=== PATIENT | male | born 1955 | race Caucasian/White ===

== ENCOUNTER 2019-08-18 13:19 | Inpatient (IN) | payer BC, MEDICARE ==
[~2019-08-18] VITALS: Ht 190.5 cm; Wt 102.0 kg
[~2019-08-18 13:19] MED LIST: ASPI1CPM9 PO; CHOL10002 PO; DULO60CA45 PO; EXEN10PE3 IJ; FISH1CAP15 PO; FLUO20CA39 PO; RABE20TA18 PO; TAMS0.4C32 PO; VITA-134 PO
[2019-08-18] MEDS ORDERED: morphine 4 MG/ML inj SYRINge IV ONE ×2 (13:30→15:35)
[2019-08-18] MEDS ORDERED: ondansetron/PF 4mg/2ml inj IV ONE (13:30)
[2019-08-18] MEDS ORDERED: MESSAGE TO PHARMACY PO ONE (16:10)
[2019-08-18] MEDS ORDERED: potassium Cl 20 mEq SR tablet PO PRN ×2 (16:10)
[2019-08-18] MEDS ORDERED: dextrose ORAL solution 15 GM/59 ML bottle PO PRN ×2 (16:10)
[2019-08-18] MEDS ORDERED: magnesium 2GM in 50ml NS 50 ML IV PRN (16:10)
[2019-08-18] MEDS ORDERED: dextrose 50%-water 50ml dispensing syringe IV PRN ×2 (16:10)
[2019-08-18] MEDS ORDERED: acetaminophen 325mg tablet PO PRN (16:10)
[2019-08-18] MEDS ORDERED: mag hydrox/Alum hydrox/simeth 30ml oral suspension PO PRN (16:10)
[2019-08-18] MEDS ORDERED: glucagon, human recombinant 1mg kit SUBCUT PRN (16:10)
[2019-08-18] MEDS ORDERED: ipratropium/albuterol 3ml nebule NEB PRN (16:10)
[2019-08-18] MEDS ORDERED: potassium CL 10mEq/100ml bag 100 ML IV PRN ×2 (16:10)
[2019-08-18] MEDS ORDERED: HYDROcodone/acetaminophen 5mg/325mg tablet PO PRN (16:10)
[2019-08-18] MEDS ORDERED: HYDROmorphone inj. 0.5 MG/0.5 ML DISP.SYRIN IV PRN (16:10)
[2019-08-18] MEDS ORDERED: ondansetron/PF 4mg/2ml inj IV PRN (16:10)
[2019-08-18] MEDS ORDERED: magnesium 4gm in 100ml NS 100 ML IV PRN (16:10)
--- NOTE | 2019-08-18 16:16 | NUR ---
DR. VELIZ IN TO SEE PT, NOW TO CT. MEDICATED WITH MS ORDERED.
--- NOTE | 2019-08-18 17:29 | NUR ---
report received from Rita KING in the ER
--- NOTE | 2019-08-18 17:50 | NUR ---
Patient came to floor into room 3622V
[2019-08-18] MEDS: normal saline 1000ml 1,000 ML IV SCH (17:55)
[2019-08-18] MEDS: HYDROmorphone 1 mg/ml syringe IV PRN ×2 (17:58→22:01)
[2019-08-18 18:14] VITALS: BP 171/94
--- NOTE | 2019-08-18 18:25 | NUR ---
Problems reprioritized. Patient report given, questions answered & plan of care reviewed with Zamzam RN.
--- NOTE | 2019-08-18 18:30 | NUR ---
Received report from Matt KING. Assumed care of patient.
[2019-08-18 18:37] LABS: BASOPHILS % (AUTO) 0.4 % (0-1); EOSINOPHILS # (AUTO) 0.2 X10'3 (0-0.9); EOSINOPHILS % (AUTO) 3.4 % (0-6); HEMATOCRIT 33.7 % (42.0-52.0); HEMOGLOBIN 10.8 g/dl (14.0-17.9); LYMPHOCYTES # (AUTO) 1.1 X10'3 (1.1-4.8); MEAN CORPUSCULAR HEMOGLOBIN 26.4 PG (27.0-31.0); MEAN CORPUSCULAR HGB CONC 32.2 g/dL (33.0-36.5); MEAN CORPUSCULAR VOLUME 82.1 FL (78-98); MEAN PLATELET VOLUME 8.5 FL (7.4-10.4); MONOCYTES # (AUTO) 0.8 X10'3 (0-0.9); MONOCYTES % (AUTO) 11.6 % (2-12); NEUTROPHILS # (AUTO) 4.8 X10'3 (1.8-7.7); NEUTROPHILS % (AUTO) 68.6 % (42-75); PLATELET COUNT 211 X10'3 (140-440); RED BLOOD COUNT 4.11 X10'6 (4.70-6.10); RED CELL DISTRIBUTION WIDTH 21.2 % (11.5-14.5)
[2019-08-18] MEDS ORDERED: ATOR20TA66 PO (18:47)
[2019-08-18] MEDS ORDERED: NEBI5TAB10 PO (18:47)
[2019-08-18] MEDS ORDERED: POTA10CA44 PO (18:47)
[2019-08-18] MEDS ORDERED: FINA5TAB11 PO (18:47)
[2019-08-18] MEDS ORDERED: ASPI1CPM6 PO (18:47)
[2019-08-18] MEDS ORDERED: CHLO25TA10 PO (18:49)
[2019-08-18 18:51] LABS: ALANINE AMINOTRANSFERASE 22 U/L (12-78); ALBUMIN 3.6 G/DL (3.4-5.0); ALBUMIN/GLOBULIN RATIO 1.4 (1.1-1.5); ALKALINE PHOSPHATASE 55 IU/L (46-116); ANION GAP 14 (8-16); ASPARTATE AMINO TRANSFERASE 15 U/L (10-37); BILIRUBIN,TOTAL 0.4 MG/DL (0.1-1.0); BLOOD UREA NITROGEN 27 MG/DL (7-18); BUN/CREATININE RATIO 17.1 (5.4-32.0); CALCIUM 9.1 MG/DL (8.5-10.1); CHLORIDE 111 MMOL/L (99-107); CREATININE 1.58 MG/DL (0.60-1.10); GLUCOSE 82 MG/DL (70-104); POTASSIUM 4.1 MMOL/L (3.5-5.1); SODIUM 146 MMOL/L (135-145); TOTAL CARBON DIOXIDE 21.5 MMOL/L (24-32); TOTAL PROTEIN 6.2 G/DL (6.4-8.2); eGFR 44 ML/MIN
[2019-08-18] MEDS ORDERED: HYDR4TAB55 PO (18:51)
[2019-08-18] MEDS ORDERED: MELA3TAB64 PO (18:52)
[2019-08-18] MEDS: HYDROcodone/acetaminophen 10/325mg tab PO PRN (18:55)
[2019-08-18 19:00] VITALS: BP 155/91
[2019-08-18 19:17] LABS: ANISOCYTOSIS 3+; ELLIPTOCYTES FEW; PLATELET ESTIMATE NORMAL
[2019-08-18] MEDS: K and/or MAG REPLACEMENT MC SCH (20:00)
[2019-08-18] MEDS: docusate sod 100mg capsule PO SCH (20:10)
[2019-08-18] MEDS: insulin glargine (Lantus) pen - multi-dose SQ SCH (20:14)
[2019-08-18 22:00] VITALS: BP 146/86
[2019-08-19] MEDS: HYDROcodone/acetaminophen 10/325mg tab PO PRN ×4 (01:23→20:39)
[2019-08-19] MEDS: HYDROmorphone 1 mg/ml syringe IV PRN ×3 (02:46→17:48)
[2019-08-19] MEDS: normal saline 1000ml 1,000 ML IV SCH ×3 (02:46→22:09)
[2019-08-19 06:00] VITALS: BP 156/86
[2019-08-19 06:04] LABS: BASOPHILS % (AUTO) 0.5 % (0-1); EOSINOPHILS # (AUTO) 0.2 X10'3 (0-0.9); EOSINOPHILS % (AUTO) 4.4 % (0-6); HEMATOCRIT 30.9 % (42.0-52.0); LYMPHOCYTES # (AUTO) 0.9 X10'3 (1.1-4.8); MEAN CORPUSCULAR HEMOGLOBIN 26.4 PG (27.0-31.0); MEAN CORPUSCULAR HGB CONC 32.4 g/dL (33.0-36.5); MEAN CORPUSCULAR VOLUME 81.5 FL (78-98); MEAN PLATELET VOLUME 8.2 FL (7.4-10.4); MONOCYTES # (AUTO) 0.6 X10'3 (0-0.9); MONOCYTES % (AUTO) 11.7 % (2-12); NEUTROPHILS # (AUTO) 3.4 X10'3 (1.8-7.7); NEUTROPHILS % (AUTO) 66.4 % (42-75); PLATELET COUNT 197 X10'3 (140-440); RED CELL DISTRIBUTION WIDTH 21.2 % (11.5-14.5); WHITE BLOOD COUNT 5.1 X10'3 (4.5-11.0)
--- NOTE | 2019-08-19 06:15 | NUR ---
Gave report to Elisa KING
[2019-08-19 06:32] LABS: ALANINE AMINOTRANSFERASE 20 U/L (12-78); ALBUMIN 3.3 G/DL (3.4-5.0); ALBUMIN/GLOBULIN RATIO 1.4 (1.1-1.5); ALKALINE PHOSPHATASE 53 IU/L (46-116); ANION GAP 7 (8-16); ASPARTATE AMINO TRANSFERASE 13 U/L (10-37); BILIRUBIN,TOTAL 0.4 MG/DL (0.1-1.0); BLOOD UREA NITROGEN 27 MG/DL (7-18); BUN/CREATININE RATIO 16.1 (5.4-32.0); CALCIUM 8.6 MG/DL (8.5-10.1); CHLORIDE 112 MMOL/L (99-107); CHOL/HDL RATIO 2.7 (0.00-4.99); CHOLESTEROL 136 MG/DL (0-200); CREATININE 1.68 MG/DL (0.60-1.10); GLUCOSE 120 MG/DL (70-104); HDL CHOLESTEROL 50 MG/DL (35-60); LDL CHOLESTEROL 71 MG/DL (50-100); MAGNESIUM 1.7 MG/DL (1.5-2.4); POTASSIUM 4.2 MMOL/L (3.5-5.1); SODIUM 143 MMOL/L (135-145); TOTAL CARBON DIOXIDE 23.8 MMOL/L (24-32); TOTAL PROTEIN 5.7 G/DL (6.4-8.2); TRIGLYCERIDES 126 MG/DL (20-135); eGFR 41 ML/MIN
[2019-08-19] MEDS: K and/or MAG REPLACEMENT MC SCH ×2 (07:31→19:35)
[2019-08-19] MEDS: enoxaparin 40mg/0.4ml syringe SQ SCH (07:34)
[2019-08-19] MEDS: docusate sod 100mg capsule PO SCH ×2 (07:35→19:33)
[2019-08-19 08:09] LABS: ANISOCYTOSIS 3+; PLATELET ESTIMATE NORMAL
[2019-08-19 08:10] LABS: POIKILOCYTOSIS 1+; SCHISTOCYTES FEW
[2019-08-19 10:00] VITALS: BP 165/88
[2019-08-19] MEDS ORDERED: pneumococcal 23-VAL P-sac vacc 25 mcg/0.5ml vial IMVAC ONE (10:00)
[2019-08-19] MEDS: duloxetine 30mg CAPSULE.DR PO SCH (13:09)
[2019-08-19] MEDS ORDERED: ceFAZolin 1GM/D5W- ADD-VANTAGE 50 ML IV ONE (15:00)
[2019-08-19] MEDS: metoprolol tartrate 25mg tablet PO SCH ×2 (16:25→19:33)
[2019-08-19 17:00] VITALS: BP 191/95
[2019-08-19] MEDS ORDERED: ringers solution, lacted 1,000 ML IV ONE (17:40)
--- NOTE | 2019-08-19 18:15 | NUR ---
Problems reprioritized. Patient report given, questions answered & plan of care reviewed with NELSON RN.
--- NOTE | 2019-08-19 18:25 | NUR ---
Received report from Elisa KING. Assumed care of patient.
[2019-08-19 19:30] VITALS: BP 176/92
--- NOTE | 2019-08-19 19:30 | NUR ---
patients blood pressure was high at 176/92 with a heart rate of 56. Administered hydralazine and will continue to monitor patient.
[2019-08-19] MEDS: FLUoxetine 20mg capsule PO SCH (19:33)
[2019-08-19] MEDS: hydrALAZINE 20mg/ml inj. IV PRN (19:34)
[2019-08-19] MEDS: pantoprazole 40mg Tablet.DR PO SCH (19:34)
--- NOTE | 2019-08-19 20:40 | NUR ---
Patient stated they were in pain, which could be causing the high blood pressure. administered [place] 10 and will reassess patients blood pressure.
[2019-08-19] MEDS: Melatonin 3mg tablet PO SCH (20:41)
[2019-08-19] MEDS: insulin glargine (Lantus) pen - multi-dose SQ SCH (20:45)
[2019-08-19 21:00] VITALS: BP 172/96
[2019-08-19 22:00] VITALS: BP 156/100
--- NOTE | 2019-08-19 22:00 | NUR ---
patients blood pressure went down to 156/100. will continue to monitor patient.
[2019-08-20] VITALS (16 sets, daily range): BP systolic 122–196; BP diastolic 60–90
[2019-08-20] MEDS: normal saline 1000ml 1,000 ML IV SCH ×2 (00:08→20:04)
--- NOTE | 2019-08-20 02:55 | NUR ---
Walked into patients room to administer a pain medication and found patient to be pale, tachypneic, diaphoretic, tremoring and complaining of it being too hot at one point, and then stated he was really cold in the next 15 minutes. at this point I took the patient's blood sugar and vital signs. Called a rapid response on the patient. Vital signs 02:99%, temperature 97.8, respirations 34 respirations per minute, blood pressure was 195/105 with a heart rate of 69 beats per minute. blood sugar was 94. contacted Dr. Milian, and she stated that if we needed anything from her to give her a call. Mauricio from respiratory and Shayna RN came up to the floor. They manoj ABG's, assessed the patient. patient denies any chest pain. EKG obtained-Normal sinus rhythm per Shayna RN. approximately 10 minutes later I took his blood pressure and it was 168/91, and respirations went back to baseline at 20 respirations a minute. I administered the hydralazine at this point. Abg's came back with Bicarb at 18 and pCO2 at 24.3. Shayna called Dr. Milian, and she recommended a chest x-ray. Per Shayna RN, Chest-xray looks clear. Blood sugar is normal and vital signs are returning to baseline. Patient denies any pain at this point, and is no longer in distress. He states the temperature of the room is now perfect. will continue to monitor the patient.
[2019-08-20] MEDS: HYDROmorphone 1 mg/ml syringe IV PRN ×4 (02:56→23:40)
[2019-08-20] MEDS: hydrALAZINE 20mg/ml inj. IV PRN ×2 (03:21→17:08)
[2019-08-20 03:31] LABS: ABG BASE EXCESS -4.1 mmol/L (-2.0-3.0); ABG PCO2 (T) 24.3 mmHg (35.0-45.0); ABG PH (T) 7.486 (7.350-7.450); ABG PO2 (T) 87.2 mmHg (83-108); ALLEN'S TEST Positive; FMetHb 0.3 % (0.3-1.12); FO2Hb 96.7 % (94-100); PATIENT TEMPERATURE 36.6; RESPIRATORY RATE (OBSERVED) 24 b/min; TOTAL HEMOGLOBIN 11.3 G/dl (14.0-17.9)
[2019-08-20] MEDS ORDERED: famotidine 10mg tablet PO ONE (06:00)
--- NOTE | 2019-08-20 06:20 | NUR ---
Gave report to Dania KING.
--- NOTE | 2019-08-20 06:20 | NUR ---
Patient in room ORTHO 4011. I have received report from [facility] and had the opportunity to ask questions and assume patient care.
[2019-08-20 06:21] LABS: BASOPHILS % (AUTO) 0.4 % (0-1); EOSINOPHILS # (AUTO) 0.3 X10'3 (0-0.9); EOSINOPHILS % (AUTO) 4.7 % (0-6); HEMOGLOBIN 10.8 g/dl (14.0-17.9); LYMPHOCYTES # (AUTO) 0.9 X10'3 (1.1-4.8); MEAN CORPUSCULAR HEMOGLOBIN 26.7 PG (27.0-31.0); MEAN CORPUSCULAR HGB CONC 32.8 g/dL (33.0-36.5); MEAN CORPUSCULAR VOLUME 81.3 FL (78-98); MEAN PLATELET VOLUME 8.3 FL (7.4-10.4); MONOCYTES # (AUTO) 0.6 X10'3 (0-0.9); MONOCYTES % (AUTO) 10.2 % (2-12); NEUTROPHILS # (AUTO) 4.4 X10'3 (1.8-7.7); NEUTROPHILS % (AUTO) 70.7 % (42-75); PLATELET COUNT 195 X10'3 (140-440); RED BLOOD COUNT 4.06 X10'6 (4.70-6.10); WHITE BLOOD COUNT 6.2 X10'3 (4.5-11.0)
[2019-08-20 06:53] LABS: ALANINE AMINOTRANSFERASE 20 U/L (12-78); ALBUMIN 3.3 G/DL (3.4-5.0); ALBUMIN/GLOBULIN RATIO 1.3 (1.1-1.5); ALKALINE PHOSPHATASE 59 IU/L (46-116); ANION GAP 11 (8-16); ASPARTATE AMINO TRANSFERASE 15 U/L (10-37); BILIRUBIN,TOTAL 0.6 MG/DL (0.1-1.0); BLOOD UREA NITROGEN 22 MG/DL (7-18); BUN/CREATININE RATIO 14.1 (5.4-32.0); CALCIUM 9.1 MG/DL (8.5-10.1); CHLORIDE 112 MMOL/L (99-107); CREATININE 1.56 MG/DL (0.60-1.10); GLUCOSE 109 MG/DL (70-104); MAGNESIUM 1.7 MG/DL (1.5-2.4); POTASSIUM 3.9 MMOL/L (3.5-5.1); SODIUM 144 MMOL/L (135-145); TOTAL CARBON DIOXIDE 21.5 MMOL/L (24-32); TOTAL PROTEIN 5.9 G/DL (6.4-8.2); eGFR 45 ML/MIN
[2019-08-20] MEDS: K and/or MAG REPLACEMENT MC SCH ×2 (07:42→19:55)
[2019-08-20 07:54] LABS: ANISOCYTOSIS 3+; PLATELET ESTIMATE NORMAL; SCHISTOCYTES FEW
[2019-08-20 07:55] LABS: BURR CELLS FEW; ELLIPTOCYTES 1+
[2019-08-20] MEDS: enoxaparin 40mg/0.4ml syringe SQ SCH (08:00)
[2019-08-20] MEDS: chlorthalidone 25mg tablet PO SCH (08:00)
[2019-08-20] MEDS: docusate sod 100mg capsule PO SCH ×2 (08:00→20:06)
[2019-08-20] MEDS: duloxetine 30mg CAPSULE.DR PO SCH (08:42)
[2019-08-20] MEDS: metoprolol tartrate 25mg tablet PO SCH ×2 (08:43→20:06)
[2019-08-20] MEDS: tamsulosin 0.4mg capsule PO SCH (08:43)
[2019-08-20] MEDS: atorvastatin 20mg tablet PO SCH (08:43)
[2019-08-20] MEDS: pantoprazole 40mg Tablet.DR PO SCH ×2 (08:44→20:06)
[2019-08-20] MEDS: finasteride 5mg tablet PO SCH (08:44)
[2019-08-20] MEDS: FLUoxetine 20mg capsule PO SCH ×2 (08:45→20:05)
[2019-08-20] MEDS ORDERED: ceFAZolin 1GM/D5W- ADD-VANTAGE 50 ML IV ONE (12:00)
--- NOTE | 2019-08-20 12:26 | NUR ---
Pt taken to OR
[2019-08-20] MEDS ORDERED: fentaNYL/PF 50MCG/1 ML 2ML syringe ONE (12:53)
[2019-08-20] MEDS ORDERED: MIDAZolam 5mg/5ml vial ONE ×2 (12:53→13:50)
--- NOTE | 2019-08-20 14:22 | NUR ---
Received from OR via ORTHO BED , accompanied by Anesthesiologist MARGARET and report given by Anesthesiolgist. PATIENT WITH 20G PIV IN LEFT UE RUNNING LR AT 100. PATIENT WITH HIP WRAP AND POWDER PACK TO RIGHT HIP. DRESSING CDI. HILARIO CATHETER PRESENT WITH CLEAR YELLOW URINE IN ATRIUM. + DP TO RIGHT FOOT. SPINAL SENSATION LELVEL OF T10. Addendum: 08/20/19 at 1447 by Sunny Orta RN, RN Amended: Links added.
--- NOTE | 2019-08-20 14:49 | NUR ---
Patient in room ORTHO 4011. I have received report from Sunny in recovery and had the opportunity to ask questions and assume patient care.
--- NOTE | 2019-08-20 15:02 | NUR ---
ALL CRITERIA FOR TRANSFER TO THE FLOOR HAS BEEN ACHIEVED. VSS. BED LOW, CALL LIGHT AND VS. SET IN PLACE. RN PRESENT TO ACCEPT CARE. PATIENT RESTING COMFORTABLY IN BED. BELONGINGS SENT WITH PATIENT. DRESSINGS CDI. RN PRESENT TO ACCEPT CARE OF PATIENT. CARE TURNED OVER. Addendum: 08/20/19 at 1509 by Sunny Orta RN, RN Amended: Links added.
[2019-08-20] MEDS: ceFAZolin 1GM/D5W- ADD-VANTAGE 50 ML IV SCH ×2 (18:00→23:44)
--- NOTE | 2019-08-20 18:41 | NUR ---
Problems reprioritized. Patient report given, questions answered & plan of care reviewed with Tg Collins
[2019-08-20] MEDS: HYDROcodone/acetaminophen 10/325mg tab PO PRN (20:07)
[2019-08-20] MEDS: insulin glargine (Lantus) pen - multi-dose SQ SCH (21:00)
[2019-08-20] MEDS: Melatonin 3mg tablet PO SCH (21:11)
[2019-08-21 02:05] VITALS: BP 188/99
[2019-08-21] MEDS: hydrALAZINE 20mg/ml inj. IV PRN (02:09)
[2019-08-21] MEDS: HYDROcodone/acetaminophen 10/325mg tab PO PRN ×4 (02:09→20:28)
[2019-08-21] MEDS: HYDROmorphone 1 mg/ml syringe IV PRN ×4 (04:03→20:41)
--- NOTE | 2019-08-21 05:08 | NUR ---
FC removed. Patient tolerated well. Urinal within reach.
[2019-08-21 06:00] VITALS: BP 150/74
--- NOTE | 2019-08-21 06:20 | NUR ---
Patient in room ORTHO 4011. I have received report from Tg Hwang and had the opportunity to ask questions and assume patient care.
[2019-08-21 06:30] LABS: BASOPHILS % (AUTO) 0.3 % (0-1); EOSINOPHILS # (AUTO) 0.1 X10'3 (0-0.9); EOSINOPHILS % (AUTO) 0.9 % (0-6); HEMATOCRIT 28.8 % (42.0-52.0); HEMOGLOBIN 9.6 g/dl (14.0-17.9); LYMPHOCYTES # (AUTO) 0.7 X10'3 (1.1-4.8); LYMPHOCYTES % (AUTO) 9.8 % (21-51); MEAN CORPUSCULAR HGB CONC 33.2 g/dL (33.0-36.5); MEAN CORPUSCULAR VOLUME 81.3 FL (78-98); MEAN PLATELET VOLUME 8.4 FL (7.4-10.4); MONOCYTES # (AUTO) 0.9 X10'3 (0-0.9); MONOCYTES % (AUTO) 13.4 % (2-12); NEUTROPHILS # (AUTO) 5.1 X10'3 (1.8-7.7); NEUTROPHILS % (AUTO) 75.6 % (42-75); PLATELET COUNT 185 X10'3 (140-440); RED BLOOD COUNT 3.54 X10'6 (4.70-6.10); RED CELL DISTRIBUTION WIDTH 21.2 % (11.5-14.5); WHITE BLOOD COUNT 6.8 X10'3 (4.5-11.0)
--- NOTE | 2019-08-21 06:32 | NUR ---
Problems reprioritized. Patient report given, questions answered & plan of care reviewed with CHRISTINE Najera.
[2019-08-21 06:54] LABS: ALANINE AMINOTRANSFERASE 16 U/L (12-78); ALBUMIN 2.8 G/DL (3.4-5.0); ALBUMIN/GLOBULIN RATIO 1.1 (1.1-1.5); ALKALINE PHOSPHATASE 52 IU/L (46-116); ANION GAP 11 (8-16); ASPARTATE AMINO TRANSFERASE 17 U/L (10-37); BILIRUBIN,TOTAL 0.5 MG/DL (0.1-1.0); BLOOD UREA NITROGEN 24 MG/DL (7-18); BUN/CREATININE RATIO 13.6 (5.4-32.0); CALCIUM 8.4 MG/DL (8.5-10.1); CHLORIDE 110 MMOL/L (99-107); CREATININE 1.77 MG/DL (0.60-1.10); GLUCOSE 145 MG/DL (70-104); MAGNESIUM 1.5 MG/DL (1.5-2.4); POTASSIUM 3.7 MMOL/L (3.5-5.1); SODIUM 141 MMOL/L (135-145); TOTAL PROTEIN 5.3 G/DL (6.4-8.2); eGFR 39 ML/MIN
[2019-08-21] MEDS: normal saline 1000ml 1,000 ML IV SCH ×2 (07:21→14:09)
[2019-08-21 07:30] LABS: ANISOCYTOSIS 3+; BURR CELLS FEW; ELLIPTOCYTES 1+; PLATELET ESTIMATE NORMAL; POLYCHROMASIA FEW
[2019-08-21] MEDS: K and/or MAG REPLACEMENT MC SCH ×2 (08:00→19:19)
[2019-08-21] MEDS: ceFAZolin 1GM/D5W- ADD-VANTAGE 50 ML IV SCH ×2 (08:28→16:00)
[2019-08-21] MEDS: docusate sod 100mg capsule PO SCH ×2 (08:37→20:37)
[2019-08-21] MEDS: duloxetine 30mg CAPSULE.DR PO SCH (08:37)
[2019-08-21] MEDS: tamsulosin 0.4mg capsule PO SCH (08:37)
[2019-08-21] MEDS: atorvastatin 20mg tablet PO SCH (08:37)
[2019-08-21] MEDS: chlorthalidone 25mg tablet PO SCH (08:37)
[2019-08-21] MEDS: finasteride 5mg tablet PO SCH (08:38)
[2019-08-21] MEDS: pantoprazole 40mg Tablet.DR PO SCH ×2 (08:38→20:38)
[2019-08-21] MEDS: metoprolol tartrate 25mg tablet PO SCH ×2 (08:38→20:39)
[2019-08-21] MEDS: FLUoxetine 20mg capsule PO SCH ×2 (08:38→20:37)
[2019-08-21] MEDS: enoxaparin 40mg/0.4ml syringe SQ SCH (08:38)
[2019-08-21 10:00] VITALS: BP 136/81
[2019-08-21 18:00] VITALS: BP 147/78
--- NOTE | 2019-08-21 18:30 | NUR ---
Problems reprioritized. Patient report given, questions answered & plan of care reviewed with Tg Collins
[2019-08-21] MEDS: Melatonin 3mg tablet PO SCH (20:37)
[2019-08-21 22:00] VITALS: BP 131/77
[2019-08-21] MEDS: insulin glargine (Lantus) pen - multi-dose SQ SCH (23:01)
[2019-08-22 02:00] VITALS: BP 152/84
[2019-08-22] MEDS: HYDROcodone/acetaminophen 10/325mg tab PO PRN ×4 (02:31→22:47)
--- NOTE | 2019-08-22 04:30 | NUR ---
patient used call light to ask me to fill his urinal with water. Reoriented him that urinal was for using to void and that id be happy to fill his water cup to drink from. asked patient if he needed to use urinal, as he had been inct earlier.. he said no
[2019-08-22] MEDS ORDERED: potassium CL 10mEq/100ml bag 100 ML IV PRN (05:00)
[2019-08-22] MEDS ORDERED: potassium Cl 20 mEq SR tablet PO PRN (05:00)
[2019-08-22] MEDS ORDERED: magnesium 4gm in 100ml NS 100 ML IV PRN (05:00)
--- NOTE | 2019-08-22 05:00 | NUR ---
Called MD with info that patient had 5 beat run of V tach and HR in 160s. BP 160/70 HR jumping from 60s to 126. Patient not having any s/s of distress. Stat order for Mg++ and K+ lab draw and to replace if Mg++ less than 2.0 and K+ less than 4.0. Tele called just after this and stated that he had another 9 beat run of Vtach.
[2019-08-22] MEDS: potassium Cl 20 mEq SR tablet PO PRN ×4 (05:08→20:55)
[2019-08-22] MEDS: magnesium Cl slow-release 64mg tablet PO PRN ×3 (05:08→12:27)
--- NOTE | 2019-08-22 05:10 | NUR ---
asked patient how long he has been taking Metoprolol, he state that "Dr. Cummins gav it to me on Friday". I asked if it was for high blood pressure or for the pumping of his hearrt, he repeated that the "doctor gave it to me on friday"
[2019-08-22] MEDS: K and/or MAG REPLACEMENT MC SCH ×5 (05:15→20:00)
[2019-08-22] MEDS: metoprolol tartrate 25mg tablet PO SCH ×2 (05:17→20:52)
[2019-08-22] MEDS ORDERED: metoprolol tartrate 25mg tablet PO ONE (05:20)
--- NOTE | 2019-08-22 05:28 | NUR ---
20 MeQ of K+ and 128 mg of Mg++ given PO and Lopressor administered after CHRISTINE Kuo spoke to again. Phleb in drawing labs now.
[2019-08-22 05:46] LABS: ALANINE AMINOTRANSFERASE 12 U/L (12-78); ALBUMIN 2.6 G/DL (3.4-5.0); ALBUMIN/GLOBULIN RATIO 0.9 (1.1-1.5); ALKALINE PHOSPHATASE 50 IU/L (46-116); ANION GAP 12 (8-16); ASPARTATE AMINO TRANSFERASE 13 U/L (10-37); BILIRUBIN,TOTAL 0.6 MG/DL (0.1-1.0); BLOOD UREA NITROGEN 30 MG/DL (7-18); BUN/CREATININE RATIO 15.3 (5.4-32.0); CALCIUM 8.2 MG/DL (8.5-10.1); CHLORIDE 110 MMOL/L (99-107); CREATININE 1.96 MG/DL (0.60-1.10); GLUCOSE 149 MG/DL (70-104); MAGNESIUM 1.6 MG/DL (1.5-2.4); POTASSIUM 3.4 MMOL/L (3.5-5.1); SODIUM 141 MMOL/L (135-145); TOTAL CARBON DIOXIDE 18.7 MMOL/L (24-32); TOTAL PROTEIN 5.5 G/DL (6.4-8.2); eGFR 34 ML/MIN
[2019-08-22 05:47] LABS: BASOPHILS % (AUTO) 0.1 % (0-1); EOSINOPHILS # (AUTO) 0.1 X10'3 (0-0.9); EOSINOPHILS % (AUTO) 1.4 % (0-6); HEMATOCRIT 27.3 % (42.0-52.0); HEMOGLOBIN 8.9 g/dl (14.0-17.9); LYMPHOCYTES # (AUTO) 0.9 X10'3 (1.1-4.8); LYMPHOCYTES % (AUTO) 13.6 % (21-51); MEAN CORPUSCULAR HEMOGLOBIN 26.8 PG (27.0-31.0); MEAN CORPUSCULAR HGB CONC 32.7 g/dL (33.0-36.5); MEAN PLATELET VOLUME 8.3 FL (7.4-10.4); MONOCYTES # (AUTO) 1.1 X10'3 (0-0.9); MONOCYTES % (AUTO) 16.9 % (2-12); NEUTROPHILS # (AUTO) 4.6 X10'3 (1.8-7.7); PLATELET COUNT 153 X10'3 (140-440); RED BLOOD COUNT 3.33 X10'6 (4.70-6.10); RED CELL DISTRIBUTION WIDTH 20.9 % (11.5-14.5); WHITE BLOOD COUNT 6.8 X10'3 (4.5-11.0)
--- NOTE | 2019-08-22 05:50 | NUR ---
Tele called and reported 11A had a 7 beat of VTACH, pt asymptomatic, resting comfortably at this time, no new orders at this time. Addendum: 08/22/19 at 0557 by Jamaica Gordon RN Amended: Links added.
[2019-08-22 06:00] VITALS: BP 160/70
--- NOTE | 2019-08-22 06:30 | NUR ---
received report from waldemar adler
--- NOTE | 2019-08-22 06:31 | NUR ---
Problems reprioritized. Patient report given, questions answered & plan of care reviewed with CHRISTINE Wagoner.
[2019-08-22 07:32] LABS: ANISOCYTOSIS 3+; PLATELET ESTIMATE NORMAL
[2019-08-22 07:33] LABS: BURR CELLS FEW; ELLIPTOCYTES FEW; SCHISTOCYTES FEW
--- NOTE | 2019-08-22 07:47 | NUR ---
PAGER ID: [phone] MESSAGE: [id number]-[id number]. Pt. is complaining of sore throat. Can we order something for him? Thank You. Rizwana KING [phone]
[2019-08-22] MEDS: docusate sod 100mg capsule PO SCH ×2 (08:00→20:48)
[2019-08-22] MEDS: HYDROmorphone 1 mg/ml syringe IV PRN ×3 (08:40→19:03)
[2019-08-22] MEDS: chlorthalidone 25mg tablet PO SCH (08:42)
[2019-08-22] MEDS: pantoprazole 40mg Tablet.DR PO SCH ×2 (08:42→20:48)
[2019-08-22] MEDS: FLUoxetine 20mg capsule PO SCH ×2 (08:42→20:48)
[2019-08-22] MEDS: atorvastatin 20mg tablet PO SCH (08:43)
[2019-08-22] MEDS: duloxetine 30mg CAPSULE.DR PO SCH (08:43)
[2019-08-22] MEDS: finasteride 5mg tablet PO SCH (08:43)
[2019-08-22] MEDS: tamsulosin 0.4mg capsule PO SCH (08:43)
[2019-08-22] MEDS: enoxaparin 40mg/0.4ml syringe SQ SCH (08:46)
[2019-08-22] MEDS: insulin Lispro (HumaLOG) vial - multi-dose SQ SCH ×2 (09:06→13:15)
[2019-08-22 10:00] VITALS: BP 118/88
--- NOTE | 2019-08-22 14:24 | NUR ---
Initial: Pt admit w/ R hip fx s/p fall. S/p fracture repair advanced to carb controlled/heart healthy diet PO 50-75% past 3 meals improving from 0-25%/refusal first 3 days of admit. Pt currently AOx1 and confused per EMR. LBM 08/19. Receiving electrolyte replacements per protocol. Will monitor for additional protein needs post-op pending further PO hx. Not appropriate for high protein ed at this time. Rec: 1. continue carb controlled/heart healthy diet 2. monitor for ONS needs 3. routine bowel care 4. weekly wts Addendum: 08/22/19 at [address] Amended: Links added.
[2019-08-22 18:00] VITALS: BP 148/79
--- NOTE | 2019-08-22 18:24 | NUR ---
gave report to waldemar hess
[2019-08-22] MEDS: aspirin/dipyridamole 25mg/200mg SR. capsule PO SCH (20:48)
[2019-08-22] MEDS: insulin glargine (Lantus) pen - multi-dose SQ SCH (20:48)
[2019-08-22] MEDS: Melatonin 3mg tablet PO SCH (20:48)
[2019-08-22 22:00] VITALS: BP 149/75
[2019-08-23] MEDS: HYDROmorphone 1 mg/ml syringe IV PRN ×4 (00:38→17:36)
[2019-08-23] MEDS: HYDROcodone/acetaminophen 10/325mg tab PO PRN ×2 (05:16→09:44)
[2019-08-23 06:00] VITALS: BP 136/77
[2019-08-23 06:09] LABS: BASOPHILS % (AUTO) 0.4 % (0-1); EOSINOPHILS # (AUTO) 0.2 X10'3 (0-0.9); EOSINOPHILS % (AUTO) 2.8 % (0-6); HEMATOCRIT 26.3 % (42.0-52.0); HEMOGLOBIN 8.6 g/dl (14.0-17.9); LYMPHOCYTES # (AUTO) 0.9 X10'3 (1.1-4.8); LYMPHOCYTES % (AUTO) 15.5 % (21-51); MEAN CORPUSCULAR HEMOGLOBIN 27.1 PG (27.0-31.0); MEAN CORPUSCULAR HGB CONC 32.8 g/dL (33.0-36.5); MEAN CORPUSCULAR VOLUME 82.6 FL (78-98); MEAN PLATELET VOLUME 8.3 FL (7.4-10.4); MONOCYTES # (AUTO) 0.9 X10'3 (0-0.9); MONOCYTES % (AUTO) 15.6 % (2-12); NEUTROPHILS # (AUTO) 3.9 X10'3 (1.8-7.7); NEUTROPHILS % (AUTO) 65.7 % (42-75); PLATELET COUNT 158 X10'3 (140-440); RED BLOOD COUNT 3.18 X10'6 (4.70-6.10); RED CELL DISTRIBUTION WIDTH 21.3 % (11.5-14.5); WHITE BLOOD COUNT 5.9 X10'3 (4.5-11.0)
[2019-08-23 06:20] LABS: ANION GAP 11 (8-16); BLOOD UREA NITROGEN 40 MG/DL (7-18); BUN/CREATININE RATIO 16.8 (5.4-32.0); CHLORIDE 112 MMOL/L (99-107); CREATININE 2.38 MG/DL (0.60-1.10); GLUCOSE 152 MG/DL (70-104); SODIUM 143 MMOL/L (135-145)
[2019-08-23 06:21] LABS: ALANINE AMINOTRANSFERASE 11 U/L (12-78); ALBUMIN 2.3 G/DL (3.4-5.0); ALBUMIN/GLOBULIN RATIO 0.8 (1.1-1.5); ALKALINE PHOSPHATASE 56 IU/L (46-116); ASPARTATE AMINO TRANSFERASE 13 U/L (10-37); BILIRUBIN,TOTAL 0.4 MG/DL (0.1-1.0); CALCIUM 8.5 MG/DL (8.5-10.1); MAGNESIUM 1.9 MG/DL (1.5-2.4); TOTAL PROTEIN 5.3 G/DL (6.4-8.2); eGFR 27 ML/MIN
--- NOTE | 2019-08-23 06:21 | NUR ---
Problems reprioritized. Patient report given, questions answered & plan of care reviewed with waldemar Wagoner.
--- NOTE | 2019-08-23 06:24 | NUR ---
received report from waldemar hess
[2019-08-23] MEDS: K and/or MAG REPLACEMENT MC SCH ×4 (07:17→20:00)
[2019-08-23] MEDS: aspirin/dipyridamole 25mg/200mg SR. capsule PO SCH ×2 (07:32→19:37)
[2019-08-23] MEDS: tamsulosin 0.4mg capsule PO SCH (07:34)
[2019-08-23] MEDS: chlorthalidone 25mg tablet PO SCH (07:34)
[2019-08-23] MEDS: duloxetine 30mg CAPSULE.DR PO SCH (07:35)
[2019-08-23] MEDS: atorvastatin 20mg tablet PO SCH (07:35)
[2019-08-23] MEDS: finasteride 5mg tablet PO SCH (07:36)
[2019-08-23] MEDS: pantoprazole 40mg Tablet.DR PO SCH ×2 (07:36→19:36)
[2019-08-23] MEDS: FLUoxetine 20mg capsule PO SCH ×2 (07:36→19:36)
[2019-08-23] MEDS: metoprolol tartrate 25mg tablet PO SCH ×2 (07:36→19:37)
[2019-08-23] MEDS: magnesium Cl slow-release 64mg tablet PO PRN ×2 (07:37→20:59)
[2019-08-23] MEDS: enoxaparin 40mg/0.4ml syringe SQ SCH (07:38)
[2019-08-23] MEDS: docusate sod 100mg capsule PO SCH ×2 (07:38→19:36)
[2019-08-23 08:19] LABS: PLATELET ESTIMATE NORMAL
[2019-08-23 08:20] LABS: ANISOCYTOSIS 3+; BURR CELLS FEW
[2019-08-23 08:21] LABS: ELLIPTOCYTES 1+; SCHISTOCYTES FEW
[2019-08-23] MEDS: insulin Lispro (HumaLOG) vial - multi-dose SQ SCH ×3 (09:38→19:40)
[2019-08-23 10:00] VITALS: BP 114/64
[2019-08-23] MEDS ORDERED: oxyCODONE/APAP 5-325mg tablet PO PRN (14:00)
[2019-08-23] MEDS: oxyCODONE/APAP 10/325mg tablet PO PRN ×2 (14:37→20:59)
[2019-08-23 18:00] VITALS: BP 121/79
--- NOTE | 2019-08-23 18:00 | NUR ---
Patient in room ORTHO 4011. I have received report from Rizwana KING and had the opportunity to ask questions and assume patient care.
--- NOTE | 2019-08-23 18:47 | NUR ---
gave report to waldemar penaloza
[2019-08-23] MEDS: Melatonin 3mg tablet PO SCH (20:59)
[2019-08-23] MEDS: insulin glargine (Lantus) pen - multi-dose SQ SCH (20:59)
[2019-08-23 22:00] VITALS: BP 135/84
[2019-08-24 06:00] VITALS: BP 170/84
--- NOTE | 2019-08-24 06:47 | NUR ---
Problems reprioritized. Patient report given, questions answered & plan of care reviewed with Keysha KING.
--- NOTE | 2019-08-24 06:59 | NUR ---
Patient in room ORTHO 4011. I have received report from CHRISTINE Matos and had the opportunity to ask questions and assume patient care.
[2019-08-24] MEDS: FLUoxetine 20mg capsule PO SCH (08:23)
[2019-08-24] MEDS: finasteride 5mg tablet PO SCH (08:23)
[2019-08-24] MEDS: duloxetine 30mg CAPSULE.DR PO SCH (08:23)
[2019-08-24] MEDS: pantoprazole 40mg Tablet.DR PO SCH (08:23)
[2019-08-24] MEDS: tamsulosin 0.4mg capsule PO SCH (08:23)
[2019-08-24] MEDS: atorvastatin 20mg tablet PO SCH (08:23)
[2019-08-24] MEDS: chlorthalidone 25mg tablet PO SCH (08:23)
[2019-08-24] MEDS: metoprolol tartrate 25mg tablet PO SCH (08:24)
[2019-08-24] MEDS: docusate sod 100mg capsule PO SCH (08:24)
[2019-08-24] MEDS: enoxaparin 40mg/0.4ml syringe SQ SCH (08:25)
[2019-08-24] MEDS: aspirin/dipyridamole 25mg/200mg SR. capsule PO SCH (08:25)
[2019-08-24] MEDS: oxyCODONE/APAP 10/325mg tablet PO PRN (08:53)
[2019-08-24 10:00] VITALS: BP 148/79
[2019-08-24] MEDS ORDERED: pneumococcal 23-VAL P-sac vacc 25 mcg/0.5ml vial IMVAC ONE (10:00)
[2019-08-24] MEDS: HYDROmorphone 1 mg/ml syringe IV PRN (13:19)
[2019-08-24] MEDS: insulin Lispro (HumaLOG) vial - multi-dose SQ SCH (13:29)
--- NOTE | 2019-08-24 14:00 | NUR ---
report phoned to horacio eden rn. bhavik aly'd left ,site clear pt tranferred via [place] [facility] with all belongings
== END 2019-08-24 14:00 | DRG 470 ==
LOC: ER 13:20 → ED HOLD 16:09 → ORTHO 4S 18:03
PROVIDERS: ADMIT Family Medicine; ATTEND Hospitalist
PROC: 3E0234Z Introduction of Serum, Toxoid and Vaccine into Muscle, Percutaneous Approach (ICD-10-PCS; 2019-08-19)
PROC: 0SRR0JA Replacement of Right Hip Joint, Femoral Surface with Synthetic Substitute, Uncemented, Open Approach (ICD-10-PCS; principal; 2019-08-20 12:45)
DX: S72.001A Fracture of unspecified part of neck of right femur, initial encounter for closed fracture (principal); I47.2 Ventricular tachycardia; E11.22 Type 2 diabetes mellitus with diabetic chronic kidney disease; G89.29 Other chronic pain; K21.9 Gastro-esophageal reflux disease without esophagitis; M19.90 Unspecified osteoarthritis, unspecified site; M54.9 Dorsalgia, unspecified; R51 Headache; I12.9 Hypertensive chronic kidney disease with stage 1 through stage 4 chronic kidney disease, or unspecified chronic kidney disease; N18.3 Chronic kidney disease, stage 3 (moderate); Y93.01 Activity, walking, marching and hiking; W01.0XXA Fall on same level from slipping, tripping and stumbling without subsequent striking against object, initial encounter; Z86.73 Personal history of transient ischemic attack (TIA), and cerebral infarction without residual deficits; Z87.891 Personal history of nicotine dependence; Z98.1 Arthrodesis status; Z23 Encounter for immunization; Y92.89 Other specified places as the place of occurrence of the external cause; Y99.8 Other external cause status; Z79.899 Other long term (current) drug therapy
CPT/HCPCS: 96374; 96375; 96376; 99285; Z7506; Z7508; 36415; 36600; 71045; 72192; 73502; 80053; 80061; 82803; 82948; 83036; 83735; 85018; 85025; 85610; 86885; 86900; 86901; 87081; 90732; 93005; 94760; 97110; 97116; 97161; 97530; A4215; A4618; A6454; A7000; C1758; C1776; G0378; J0360; J0690; J1170; J1650; J1815; J2250; J2270; J2405; J3010; J3370; J7030; J7120

== ENCOUNTER 2019-10-05 23:07 | Inpatient (IN) | payer BC, MEDICARE ==
[~2019-10-05] VITALS: Ht 190.5 cm; Wt 100.0 kg
[~2019-10-05 23:07] MED LIST changes: +ASPI1CPM6 PO; -ASPI1CPM9 PO; +ATOR20TA66 PO; +CHLO25TA10 PO; -CHOL10002 PO; +FINA5TAB11 PO; -FISH1CAP15 PO; +HYDR4TAB55 PO; +MELA3TAB64 PO; +NEBI5TAB10 PO; +POTA10CA44 PO; -VITA-134 PO
[2019-10-05] MEDS ORDERED: normal saline 1000ML IV soln IVB ONE (23:55)
[2019-10-06] VITALS (19 sets, daily range): BP systolic 120–150; BP diastolic 69–83
[2019-10-06] MEDS ORDERED: HYDROmorphone 2mg tablet PO STA (00:05)
--- NOTE | 2019-10-06 00:07 | NUR ---
S/W PA IN REGARDS TO 1L NS BOLUS, PT ALREADY RECEIVED 3L OF NS FROM PREVIOUS FACILITY. PA STATED IT WAS OK TO D/C MEDICATION.
[2019-10-06 00:46] LABS: ALANINE AMINOTRANSFERASE 10 U/L (12-78); ALBUMIN 2.8 G/DL (3.4-5.0); ALKALINE PHOSPHATASE 51 IU/L (46-116); ANION GAP 10 (8-16); ASPARTATE AMINO TRANSFERASE 11 U/L (10-37); BILIRUBIN,TOTAL 0.3 MG/DL (0.1-1.0); BLOOD UREA NITROGEN 41 MG/DL (7-18); BUN/CREATININE RATIO 16.8 (5.4-32.0); CALCIUM 8.4 MG/DL (8.5-10.1); CHLORIDE 108 MMOL/L (99-107); CREATININE 2.44 MG/DL (0.60-1.10); GLUCOSE 119 MG/DL (70-104); POTASSIUM 3.8 MMOL/L (3.5-5.1); SODIUM 141 MMOL/L (135-145); TOTAL CARBON DIOXIDE 22.8 MMOL/L (24-32); TOTAL PROTEIN 5.7 G/DL (6.4-8.2); eGFR 27 ML/MIN
[2019-10-06 00:58] LABS: BASOPHILS % (AUTO) 0.2 % (0-1); EOSINOPHILS % (AUTO) 0.3 % (0-6); HEMOGLOBIN 9.2 g/dl (14.0-17.9); LYMPHOCYTES # (AUTO) 0.6 X10'3 (1.1-4.8); LYMPHOCYTES % (AUTO) 7.6 % (21-51); MEAN CORPUSCULAR HEMOGLOBIN 27.4 PG (27.0-31.0); MEAN CORPUSCULAR HGB CONC 32.8 g/dL (33.0-36.5); MEAN CORPUSCULAR VOLUME 83.5 FL (78-98); MEAN PLATELET VOLUME 8.3 FL (7.4-10.4); MONOCYTES # (AUTO) 0.7 X10'3 (0-0.9); MONOCYTES % (AUTO) 9.2 % (2-12); NEUTROPHILS # (AUTO) 6.5 X10'3 (1.8-7.7); NEUTROPHILS % (AUTO) 82.7 % (42-75); PLATELET COUNT 198 X10'3 (140-440); RED BLOOD COUNT 3.35 X10'6 (4.70-6.10); WHITE BLOOD COUNT 7.8 X10'3 (4.5-11.0)
[2019-10-06 02:58] LABS: CLARITY,URINE CLEAR (Clear); COLOR,URINE YELLOW (Yellow); GLUCOSE, URINE NEGATIVE (Neg); KETONES,URINE NEGATIVE (Neg); LEUKOCYTE ESTERASE ,URINE NEGATIVE (Neg); NITRITES, URINE NEGATIVE (Neg); OCCULT BLOOD,URINE NEGATIVE (Neg); PH,URINE 5.5 (4.8-8.0); PROTEIN,URINE 100 mg/dl (Neg); UROBILINOGEN,URINE 0.2 E.U/dL (0.2-1.0)
[2019-10-06 03:09] LABS: UA COLLECTION TYPE URINAL
[2019-10-06 03:14] LABS: BACTERIA,URINE NONE SEEN /HPF (Neg); MUCUS STRANDS FEW /LPF (Neg); RBC,URINE 0-2 /HPF (0-2); SQUAMOUS EPITHELIAL CELL,UR FEW /LPF (FEW); WBC,URINE 0-4 /HPF (0-4)
[2019-10-06] MEDS ORDERED: acetaminophen 325mg tablet PO PRN (03:35)
[2019-10-06] MEDS ORDERED: potassium Cl 20 mEq SR tablet PO PRN (03:35)
[2019-10-06] MEDS ORDERED: magnesium 4gm in 100ml NS 100 ML IV PRN (03:35)
[2019-10-06] MEDS ORDERED: potassium CL 10mEq/100ml bag 100 ML IV PRN ×2 (03:35)
[2019-10-06] MEDS ORDERED: magnesium 2GM in 50ml NS 50 ML IV PRN (03:35)
[2019-10-06] MEDS ORDERED: magnesium Cl slow-release 64mg tablet PO PRN (03:35)
--- NOTE | 2019-10-06 04:05 | NUR ---
Received report from CHRISTINE Mac.
[2019-10-06] MEDS ORDERED: CIPR500T5 PO (04:10)
[2019-10-06] MEDS ORDERED: CEPH500C5 PO (04:10)
[2019-10-06] MEDS ORDERED: GABA800T11 PO (04:10)
[2019-10-06] MEDS: HYDROcodone/acetaminophen 5mg/325mg tablet PO PRN ×4 (04:17→21:07)
[2019-10-06] MEDS: normal saline 1000ml 1,000 ML IV SCH (04:18)
--- NOTE | 2019-10-06 06:27 | NUR ---
Patient report given, questions answered and plan of care reviewed with CHRISTINE Lee
[2019-10-06] MEDS: VANCOmycin 1250MG/NS 250ml Bag 250 ML IV SCH (07:08)
[2019-10-06] MEDS: docusate sod 100mg capsule PO SCH ×2 (07:08→21:06)
[2019-10-06] MEDS: K and/or MAG REPLACEMENT MC SCH ×2 (07:08→20:00)
[2019-10-06] MEDS ORDERED: ceFAZolin 1000mg inj ONE (08:23)
[2019-10-06] MEDS ORDERED: fentaNYL/PF 50MCG/1 ML 2ML syringe ONE (08:39)
[2019-10-06] MEDS ORDERED: MIDAZolam 5mg/5ml vial ONE (08:40)
[2019-10-06] MEDS ORDERED: glucagon, human recombinant 1mg kit SUBCUT PRN (09:20)
[2019-10-06] MEDS ORDERED: insulin Lispro (HumaLOG) vial - multi-dose SQ SCH (09:20)
[2019-10-06] MEDS ORDERED: MESSAGE TO PHARMACY PO ONE (09:20)
[2019-10-06] MEDS ORDERED: dextrose 50%-water 50ml dispensing syringe IV PRN ×2 (09:20)
[2019-10-06] MEDS ORDERED: dextrose ORAL solution 15 GM/59 ML bottle PO PRN ×2 (09:20)
[2019-10-06] MEDS ORDERED: ringers solution, lacted 1,000 ML IV SCH (09:21)
[2019-10-06] MEDS ORDERED: ondansetron/PF 4mg/2ml inj IV PRN (09:25)
[2019-10-06] MEDS ORDERED: meperidine/PF 25mg/ml syringe IV PRN ×3 (09:25)
[2019-10-06] MEDS ORDERED: proCHLORperazine 10 MG/2 ml inj IV PRN (09:25)
[2019-10-06] MEDS ORDERED: morphine 4 MG/ML inj SYRINge IV PRN ×2 (09:25)
--- NOTE | 2019-10-06 09:40 | NUR ---
Received from OR via BED, accompanied by Anesthesiologist DR swann-- and report given by Anesthesiolgist. PATIENT A&OX4, DENIES PAIN, V/S WNL, NEUROVASCULAR CHECKS INTACT, 18G PIV lUE, SCD ON, wv dressing cdi to right hip at 125 continous suction with no leaks detected. minimal output in drain so far. sensation t-11
--- NOTE | 2019-10-06 09:47 | NUR ---
DM consult: Pt with A1c 6.0, DM education not warranted at this time. Will continue to follow. Addendum: 10/06/19 at [address] Amended: Links added.
--- NOTE | 2019-10-06 10:30 | NUR ---
PATIENT A&OX4, DENIES PAIN, V/S WNL, NEUROVASCULAR CHECKS INTACT, 18G PIV lUE, SCD ON, wv dressing cdi to right hip at 125 continous suction with no leaks detected. minimal output in drain so far. patient moving ble now. PATIENT TAKEN TO 4016 WITH ALL BELONGINGS AND HOOKED UP TO MONITORS IN ROOM AND REPORT GIVEN TO RN WHO HAS TAKEN OVER PATIENT CARE.
[2019-10-06] MEDS: piperacillin/tazo 3.375gm/50ml 50 ML IV SCH ×2 (10:51→17:57)
--- NOTE | 2019-10-06 11:52 | NUR ---
Called pharmacy about patients reported allergy to Penicillin- pharmacy said its okay to continue Zosyn.
--- NOTE | 2019-10-06 18:40 | NUR ---
Problems reprioritized. Patient report given, questions answered & plan of care reviewed with Steven KING.
[2019-10-06] MEDS ORDERED: vancomycin/NS 1 GM ADD-VANTAGE 250 ML IV SCH (20:00)
[2019-10-06] MEDS: insulin glargine (Lantus) pen - multi-dose SQ SCH (21:00)
[2019-10-06] MEDS: gabapentin 400mg capsule PO SCH (21:06)
[2019-10-06] MEDS: FLUoxetine 20mg capsule PO SCH (21:06)
[2019-10-06] MEDS: lactobacillus rhamnosus 10,000 MMU CELLS/CAPSULE PO SCH (21:07)
[2019-10-06] MEDS: Melatonin 3mg tablet PO SCH (21:07)
[2019-10-06] MEDS: metoprolol tartrate 25mg tablet PO SCH (21:16)
[2019-10-06] MEDS: aspirin/dipyridamole 25mg/200mg SR. capsule PO SCH (21:20)
[2019-10-07] MEDS: piperacillin/tazo 3.375gm/50ml 50 ML IV SCH ×3 (01:03→17:31)
[2019-10-07] MEDS: HYDROcodone/acetaminophen 5mg/325mg tablet PO PRN ×5 (01:04→20:39)
[2019-10-07 06:00] VITALS: BP 139/92
[2019-10-07 06:07] LABS: BASOPHILS % (AUTO) 0.5 % (0-1); EOSINOPHILS # (AUTO) 0.1 X10'3 (0-0.9); EOSINOPHILS % (AUTO) 2.3 % (0-6); HEMOGLOBIN 8.8 g/dl (14.0-17.9); LYMPHOCYTES # (AUTO) 0.8 X10'3 (1.1-4.8); LYMPHOCYTES % (AUTO) 17.3 % (21-51); MEAN CORPUSCULAR HEMOGLOBIN 27.5 PG (27.0-31.0); MEAN CORPUSCULAR HGB CONC 33.7 g/dL (33.0-36.5); MEAN CORPUSCULAR VOLUME 81.8 FL (78-98); MEAN PLATELET VOLUME 8.1 FL (7.4-10.4); MONOCYTES # (AUTO) 0.7 X10'3 (0-0.9); MONOCYTES % (AUTO) 15.3 % (2-12); NEUTROPHILS # (AUTO) 3.1 X10'3 (1.8-7.7); NEUTROPHILS % (AUTO) 64.6 % (42-75); PLATELET COUNT 217 X10'3 (140-440); RED BLOOD COUNT 3.19 X10'6 (4.70-6.10); WHITE BLOOD COUNT 4.8 X10'3 (4.5-11.0)
[2019-10-07 06:28] LABS: ALANINE AMINOTRANSFERASE 14 U/L (12-78); ALBUMIN 2.5 G/DL (3.4-5.0); ALBUMIN/GLOBULIN RATIO 0.9 (1.1-1.5); ALKALINE PHOSPHATASE 42 IU/L (46-116); ANION GAP 8 (8-16); ASPARTATE AMINO TRANSFERASE 15 U/L (10-37); BILIRUBIN,TOTAL 0.3 MG/DL (0.1-1.0); BLOOD UREA NITROGEN 30 MG/DL (7-18); BUN/CREATININE RATIO 14.4 (5.4-32.0); C-REACTIVE PROTEIN 8.69 MG/DL (0.0-0.5); CALCIUM 8.7 MG/DL (8.5-10.1); CHLORIDE 109 MMOL/L (99-107); CREATININE 2.08 MG/DL (0.60-1.10); GLUCOSE 119 MG/DL (70-104); MAGNESIUM 1.8 MG/DL (1.5-2.4); POTASSIUM 3.4 MMOL/L (3.5-5.1); SODIUM 141 MMOL/L (135-145); TOTAL PROTEIN 5.3 G/DL (6.4-8.2); eGFR 32 ML/MIN
--- NOTE | 2019-10-07 06:30 | NUR ---
Patient in room ORTHO 4016. I have received report from Steven and had the opportunity to ask questions and assume patient care.
[2019-10-07 07:16] LABS: TOTAL CELLS COUNTED 100
[2019-10-07 07:17] LABS: ANISOCYTOSIS 1+; HYPOCHROMASIA 1+; PLATELET ESTIMATE NORMAL
[2019-10-07] MEDS: VANCOmycin 1250MG/NS 250ml Bag 250 ML IV SCH (07:54)
[2019-10-07] MEDS: aspirin/dipyridamole 25mg/200mg SR. capsule PO SCH ×2 (07:55→20:38)
[2019-10-07] MEDS: pantoprazole 40mg Tablet.DR PO SCH (07:55)
[2019-10-07] MEDS: docusate sod 100mg capsule PO SCH ×2 (07:56→20:00)
[2019-10-07] MEDS: chlorthalidone 25mg tablet PO SCH (07:56)
[2019-10-07] MEDS: lactobacillus rhamnosus 10,000 MMU CELLS/CAPSULE PO SCH ×2 (07:56→20:38)
[2019-10-07] MEDS: atorvastatin 20mg tablet PO SCH (07:57)
[2019-10-07] MEDS: duloxetine 30mg CAPSULE.DR PO SCH (07:57)
[2019-10-07] MEDS: finasteride 5mg tablet PO SCH (07:58)
[2019-10-07] MEDS: tamsulosin 0.4mg capsule PO SCH (07:58)
[2019-10-07] MEDS: potassium Cl 20 mEq SR tablet PO PRN ×3 (07:58→17:45)
[2019-10-07] MEDS: FLUoxetine 20mg capsule PO SCH ×2 (07:58→20:39)
[2019-10-07] MEDS: K and/or MAG REPLACEMENT MC SCH ×2 (08:00→20:00)
[2019-10-07] MEDS: metoprolol tartrate 25mg tablet PO SCH ×2 (08:00→20:44)
[2019-10-07 10:00] VITALS: BP_SYST 124; BP_SYST 127; BP_DIAS 71; BP_DIAS 74
[2019-10-07] MEDS ORDERED: pneumococcal 23-VAL P-sac vacc 25 mcg/0.5ml vial IMVAC ONE (10:00)
--- NOTE | 2019-10-07 11:54 | NUR ---
Student documentation: I have reviewed and agree all interventions, assessments performed and documented by Juliana Jade. Student Medication Administration: For this medication-pass time frame, all medication were reviewed, dispensed, administered and documented per hospital policy by Juliana Jade.
--- NOTE | 2019-10-07 12:30 | NUR ---
I received report from Juliana, Student Nurse, had the opportunity to ask questions and assumed patient care. Patient in room 4016 on ORTHO. Black Student Nurse
--- NOTE | 2019-10-07 14:28 | NUR ---
Patient is with a wound vac to the left hip. It was placed by Dr. Hand in the OR. Plans are for repeat I & D on Friday in the OR. Wound care is available if any needs arise.
[2019-10-07 14:43] VITALS: BP 125/75
--- NOTE | 2019-10-07 17:50 | NUR ---
Given Potassium 20 MEQ pox1 tab with a K level of 3.4. Addendum: 10/07/19 at 1752 by Isidra WARD Amended: Links added.
[2019-10-07 18:00] VITALS: BP 145/85
--- NOTE | 2019-10-07 18:15 | NUR ---
Patient in room ORTHO 4016. I have received report from CHRISTINE Najera and had the opportunity to ask questions and assume patient care.
--- NOTE | 2019-10-07 18:21 | NUR ---
Patient report given, to CHRISTINE Najera questions answered & plan of care reviewed with Sofia, Student Nurse.
--- NOTE | 2019-10-07 18:22 | NUR ---
Problems reprioritized. Patient report given, questions answered & plan of care reviewed with Carol Ann.
[2019-10-07] MEDS: gabapentin 400mg capsule PO SCH (20:39)
[2019-10-07] MEDS: Melatonin 3mg tablet PO SCH (20:40)
[2019-10-07] MEDS: insulin glargine (Lantus) pen - multi-dose SQ SCH (21:00)
[2019-10-07 22:00] VITALS: BP 138/81
[2019-10-07] MEDS: morphine 2 MG/ML inj. syringe IV PRN (22:11)
[2019-10-08] VITALS (11 sets, daily range): BP systolic 132–168; BP diastolic 76–101
[2019-10-08] MEDS: HYDROcodone/acetaminophen 5mg/325mg tablet PO PRN ×2 (00:26→04:18)
[2019-10-08] MEDS: morphine 2 MG/ML inj. syringe IV PRN ×2 (02:22→10:28)
[2019-10-08] MEDS: normal saline 1000ml 1,000 ML IV SCH (03:32)
--- NOTE | 2019-10-08 06:44 | NUR ---
Problems reprioritized. Patient report given, questions answered & plan of care reviewed with CHRISTINE Matos.
[2019-10-08 06:45] LABS: BASOPHILS % (AUTO) 0.7 % (0-1); EOSINOPHILS # (AUTO) 0.2 X10'3 (0-0.9); EOSINOPHILS % (AUTO) 5.1 % (0-6); HEMOGLOBIN 8.5 g/dl (14.0-17.9); LYMPHOCYTES # (AUTO) 0.9 X10'3 (1.1-4.8); LYMPHOCYTES % (AUTO) 20.2 % (21-51); MEAN CORPUSCULAR HEMOGLOBIN 26.9 PG (27.0-31.0); MEAN CORPUSCULAR HGB CONC 32.8 g/dL (33.0-36.5); MEAN CORPUSCULAR VOLUME 81.9 FL (78-98); MEAN PLATELET VOLUME 7.8 FL (7.4-10.4); MONOCYTES # (AUTO) 0.8 X10'3 (0-0.9); MONOCYTES % (AUTO) 16.1 % (2-12); NEUTROPHILS # (AUTO) 2.7 X10'3 (1.8-7.7); NEUTROPHILS % (AUTO) 57.9 % (42-75); PLATELET COUNT 206 X10'3 (140-440); RED BLOOD COUNT 3.17 X10'6 (4.70-6.10); RED CELL DISTRIBUTION WIDTH 17.9 % (11.5-14.5); WHITE BLOOD COUNT 4.7 X10'3 (4.5-11.0)
[2019-10-08 07:09] LABS: ALBUMIN 2.5 G/DL (3.4-5.0); ANION GAP 8 (8-16); BLOOD UREA NITROGEN 29 MG/DL (7-18); CALCIUM 8.5 MG/DL (8.5-10.1); CHLORIDE 110 MMOL/L (99-107); CREATININE 2.23 MG/DL (0.60-1.10); GLUCOSE 116 MG/DL (70-104); MAGNESIUM 1.8 MG/DL (1.5-2.4); SODIUM 143 MMOL/L (135-145); TOTAL CARBON DIOXIDE 25.1 MMOL/L (24-32); eGFR 30 ML/MIN
[2019-10-08] MEDS: FLUoxetine 20mg capsule PO SCH ×2 (08:00→20:37)
[2019-10-08] MEDS: aspirin/dipyridamole 25mg/200mg SR. capsule PO SCH ×2 (08:00→20:39)
[2019-10-08] MEDS: K and/or MAG REPLACEMENT MC SCH ×2 (08:00→20:00)
[2019-10-08] MEDS: metoprolol tartrate 25mg tablet PO SCH ×2 (08:00→20:37)
[2019-10-08] MEDS: pantoprazole 40mg Tablet.DR PO SCH (08:46)
[2019-10-08] MEDS: CefTRIAXone 2gm/D5W 50ml 50 ML IV SCH (08:48)
[2019-10-08] MEDS: VANCOmycin 1250MG/NS 250ml Bag 250 ML IV SCH (08:49)
[2019-10-08] MEDS: chlorthalidone 25mg tablet PO SCH (08:50)
[2019-10-08] MEDS: docusate sod 100mg capsule PO SCH ×2 (08:51→20:37)
[2019-10-08] MEDS: lactobacillus rhamnosus 10,000 MMU CELLS/CAPSULE PO SCH ×2 (08:51→20:32)
[2019-10-08] MEDS: duloxetine 30mg CAPSULE.DR PO SCH (08:52)
[2019-10-08] MEDS: tamsulosin 0.4mg capsule PO SCH (08:53)
[2019-10-08] MEDS: atorvastatin 20mg tablet PO SCH (08:54)
[2019-10-08] MEDS: HYDROcodone/acetaminophen 10/325mg tab PO PRN ×3 (08:57→20:33)
[2019-10-08] MEDS: finasteride 5mg tablet PO SCH (08:58)
[2019-10-08] MEDS ORDERED: ceFAZolin 1000mg inj ONE (13:38)
[2019-10-08] MEDS ORDERED: vancomycin 1,000mg inj ONE ×2 (13:38→15:13)
[2019-10-08] MEDS ORDERED: ringers solution, lacted 1,000 ML IV SCH (14:36)
[2019-10-08] MEDS ORDERED: fentaNYL /PF 50mcg/ml 5ml ampule ONE (14:38)
[2019-10-08] MEDS ORDERED: midazolam 2 mg/2 ml injection ONE (14:38)
[2019-10-08] MEDS ORDERED: proCHLORperazine 10 MG/2 ml inj IV PRN (14:40)
[2019-10-08] MEDS ORDERED: meperidine/PF 25mg/ml syringe IV PRN ×4 (14:40→15:35)
[2019-10-08] MEDS ORDERED: morphine 4 MG/ML inj SYRINge IV PRN ×3 (14:40→15:35)
[2019-10-08] MEDS ORDERED: ondansetron/PF 4mg/2ml inj IV PRN ×2 (14:40→15:35)
[2019-10-08] MEDS ORDERED: sevoflurane 250ml liquid IH ONE (14:45)
[2019-10-08] MEDS ORDERED: tobramycin sulfate 1.2gm vial TP ONE ×2 (15:22→15:23)
[2019-10-08] MEDS ORDERED: normal saline 1000ml 1,000 ML IV ONE (15:32)
[2019-10-08] MEDS ORDERED: HYDROmorphone inj. 0.5 MG/0.5 ML DISP.SYRIN IV PRN ×2 (15:35)
[2019-10-08] MEDS ORDERED: glycopyrrolate 0.2mg/ml inj ONE (15:38)
[2019-10-08] MEDS ORDERED: LIDOcaine 1% (10mg/ml) 2ml vial ONE (15:38)
[2019-10-08] MEDS ORDERED: propofol inj 20 ML IV ONE (15:38)
[2019-10-08] MEDS ORDERED: ePHEDrine 50MG/ML INJ. ONE (15:38)
[2019-10-08] MEDS ORDERED: ondansetron/PF 4mg/2ml inj ONE ×2 (15:38→15:39)
[2019-10-08] MEDS ORDERED: phenylephrine 10mg/ml inj. ONE (15:38)
--- NOTE | 2019-10-08 15:55 | NUR ---
Received from OR via ORTHO BED, accompanied by Anesthesiologist DR PAIZ and report given by Anesthesiolgist. PT AROUSES EASILY, PLACED ON O2 AND MONITOR, S/P I AND D OF RIGHT HIP, GENERAL ANESTH, PT HAS RIGHT LATERAL ENRIQUE HIP DRESSING CDI, HEMOVAC WITH SCANT SEROSANGUINOUS DRAINAGE PRESENT, 2OG PIV IN LEFT FOREARM, DENIES ANY PAIN OR NAUSEA AT THIS TIME WILL CONT TO ASSESS.
--- NOTE | 2019-10-08 16:55 | NUR ---
Report called to receiving nurse. Transferred via ORTHO BED TO ROOM 4016 Belongings . Special Issues communicated to receiving nurse. PT'S AT BEDSIDE
[2019-10-08 17:14] LABS: BASOPHILS % (AUTO) 0.7 % (0-1); EOSINOPHILS # (AUTO) 0.2 X10'3 (0-0.9); EOSINOPHILS % (AUTO) 5.2 % (0-6); HEMATOCRIT 29.6 % (42.0-52.0); HEMOGLOBIN 9.6 g/dl (14.0-17.9); LYMPHOCYTES # (AUTO) 1.1 X10'3 (1.1-4.8); MEAN CORPUSCULAR HEMOGLOBIN 27.2 PG (27.0-31.0); MEAN CORPUSCULAR HGB CONC 32.4 g/dL (33.0-36.5); MEAN PLATELET VOLUME 7.8 FL (7.4-10.4); MONOCYTES # (AUTO) 0.6 X10'3 (0-0.9); MONOCYTES % (AUTO) 15.1 % (2-12); NEUTROPHILS # (AUTO) 1.8 X10'3 (1.8-7.7); PLATELET COUNT 200 X10'3 (140-440); RED BLOOD COUNT 3.52 X10'6 (4.70-6.10); RED CELL DISTRIBUTION WIDTH 18.2 % (11.5-14.5); WHITE BLOOD COUNT 3.7 X10'3 (4.5-11.0)
[2019-10-08] MEDS: HYDROmorphone 1 mg/ml syringe IV PRN (17:19)
[2019-10-08] MEDS: gabapentin 400mg capsule PO SCH (20:33)
[2019-10-08] MEDS: Melatonin 3mg tablet PO SCH (20:37)
[2019-10-08] MEDS: insulin glargine (Lantus) pen - multi-dose SQ SCH (20:46)
[2019-10-09] MEDS: HYDROcodone/acetaminophen 10/325mg tab PO PRN ×4 (00:51→23:05)
[2019-10-09] MEDS: HYDROmorphone 1 mg/ml syringe IV PRN ×4 (03:00→21:12)
[2019-10-09] MEDS: normal saline 1000ml 1,000 ML IV SCH (03:05)
[2019-10-09 05:48] VITALS: BP 130/75
[2019-10-09 06:00] VITALS: BP 137/76
[2019-10-09] MEDS ORDERED: VANCOMYCIN LEVEL IV ONE (07:30)
[2019-10-09 07:49] LABS: BASOPHILS % (AUTO) 0.4 % (0-1); EOSINOPHILS # (AUTO) 0.2 X10'3 (0-0.9); EOSINOPHILS % (AUTO) 3.7 % (0-6); HEMOGLOBIN 8.8 g/dl (14.0-17.9); LYMPHOCYTES # (AUTO) 0.9 X10'3 (1.1-4.8); LYMPHOCYTES % (AUTO) 16.6 % (21-51); MEAN CORPUSCULAR HEMOGLOBIN 26.9 PG (27.0-31.0); MEAN CORPUSCULAR HGB CONC 32.6 g/dL (33.0-36.5); MEAN CORPUSCULAR VOLUME 82.4 FL (78-98); MEAN PLATELET VOLUME 7.6 FL (7.4-10.4); MONOCYTES # (AUTO) 0.6 X10'3 (0-0.9); MONOCYTES % (AUTO) 11.7 % (2-12); NEUTROPHILS # (AUTO) 3.7 X10'3 (1.8-7.7); NEUTROPHILS % (AUTO) 67.6 % (42-75); PLATELET COUNT 222 X10'3 (140-440); RED BLOOD COUNT 3.28 X10'6 (4.70-6.10); RED CELL DISTRIBUTION WIDTH 18.1 % (11.5-14.5); WHITE BLOOD COUNT 5.5 X10'3 (4.5-11.0)
[2019-10-09 07:57] LABS: ALBUMIN 2.3 G/DL (3.4-5.0); ANION GAP 7 (8-16); BLOOD UREA NITROGEN 25 MG/DL (7-18); BUN/CREATININE RATIO 12.1 (5.4-32.0); CHLORIDE 110 MMOL/L (99-107); CREATININE 2.07 MG/DL (0.60-1.10); GLUCOSE 168 MG/DL (70-104); MAGNESIUM 1.7 MG/DL (1.5-2.4); POTASSIUM 4.4 MMOL/L (3.5-5.1); SODIUM 143 MMOL/L (135-145); TOTAL CARBON DIOXIDE 25.9 MMOL/L (24-32); eGFR 32 ML/MIN
[2019-10-09] MEDS: K and/or MAG REPLACEMENT MC SCH ×2 (08:00→20:00)
[2019-10-09] MEDS: pantoprazole 40mg Tablet.DR PO SCH (08:22)
[2019-10-09] MEDS: CefTRIAXone 2gm/D5W 50ml 50 ML IV SCH (08:22)
[2019-10-09] MEDS: docusate sod 100mg capsule PO SCH ×2 (08:23→20:23)
[2019-10-09] MEDS: tamsulosin 0.4mg capsule PO SCH (08:23)
[2019-10-09] MEDS: lactobacillus rhamnosus 10,000 MMU CELLS/CAPSULE PO SCH ×2 (08:23→20:23)
[2019-10-09] MEDS: atorvastatin 20mg tablet PO SCH (08:23)
[2019-10-09] MEDS: chlorthalidone 25mg tablet PO SCH (08:23)
[2019-10-09] MEDS: aspirin/dipyridamole 25mg/200mg SR. capsule PO SCH ×2 (08:23→20:21)
[2019-10-09] MEDS: VANCOmycin 1250MG/NS 250ml Bag 250 ML IV SCH (08:23)
[2019-10-09] MEDS: duloxetine 30mg CAPSULE.DR PO SCH (08:24)
[2019-10-09] MEDS: metoprolol tartrate 25mg tablet PO SCH ×2 (08:24→20:23)
[2019-10-09] MEDS: FLUoxetine 20mg capsule PO SCH ×2 (08:24→20:23)
[2019-10-09] MEDS: finasteride 5mg tablet PO SCH (08:24)
[2019-10-09 09:53] VITALS: BP 132/76
[2019-10-09 17:00] VITALS: BP 150/76
[2019-10-09] MEDS: Melatonin 3mg tablet PO SCH (20:22)
[2019-10-09] MEDS: gabapentin 400mg capsule PO SCH (20:22)
[2019-10-09] MEDS: insulin glargine (Lantus) pen - multi-dose SQ SCH (21:00)
[2019-10-09 22:00] VITALS: BP 123/66
--- NOTE | 2019-10-10 00:46 | NUR ---
reviewed and agree with SRN assessment findings. Edited as needed.
[2019-10-10] MEDS: normal saline 1000ml 1,000 ML IV SCH (03:32)
[2019-10-10] MEDS: HYDROmorphone 1 mg/ml syringe IV PRN ×3 (04:15→20:55)
[2019-10-10 05:00] VITALS: BP 139/72
[2019-10-10] MEDS: HYDROcodone/acetaminophen 10/325mg tab PO PRN ×3 (05:37→17:35)
--- NOTE | 2019-10-10 06:02 | NUR ---
Problems reprioritized. Patient report given, questions answered & plan of care reviewed with CHRISTINE Gilmore.
[2019-10-10 06:06] LABS: HEMOGLOBIN 8.7 g/dl (14.0-17.9); MEAN PLATELET VOLUME 7.8 FL (7.4-10.4)
[2019-10-10 06:09] LABS: BASOPHILS % (AUTO) 0.4 % (0-1); EOSINOPHILS # (AUTO) 0.2 X10'3 (0-0.9); EOSINOPHILS % (AUTO) 2.7 % (0-6); HEMATOCRIT 25.8 % (42.0-52.0); LYMPHOCYTES # (AUTO) 0.9 X10'3 (1.1-4.8); LYMPHOCYTES % (AUTO) 12.3 % (21-51); MEAN CORPUSCULAR HEMOGLOBIN 27.5 PG (27.0-31.0); MEAN CORPUSCULAR HGB CONC 33.7 g/dL (33.0-36.5); MEAN CORPUSCULAR VOLUME 81.5 FL (78-98); MONOCYTES % (AUTO) 13.8 % (2-12); NEUTROPHILS # (AUTO) 5.2 X10'3 (1.8-7.7); NEUTROPHILS % (AUTO) 70.8 % (42-75); PLATELET COUNT 199 X10'3 (140-440); RED BLOOD COUNT 3.17 X10'6 (4.70-6.10); RED CELL DISTRIBUTION WIDTH 17.5 % (11.5-14.5); WHITE BLOOD COUNT 7.4 X10'3 (4.5-11.0)
[2019-10-10 06:27] LABS: ALBUMIN 2.2 G/DL (3.4-5.0); ANION GAP 10 (8-16); BLOOD UREA NITROGEN 29 MG/DL (7-18); BUN/CREATININE RATIO 12.7 (5.4-32.0); CALCIUM 9.3 MG/DL (8.5-10.1); CHLORIDE 109 MMOL/L (99-107); CREATININE 2.29 MG/DL (0.60-1.10); GLUCOSE 133 MG/DL (70-104); MAGNESIUM 1.6 MG/DL (1.5-2.4); POTASSIUM 3.9 MMOL/L (3.5-5.1); SODIUM 141 MMOL/L (135-145); eGFR 29 ML/MIN
--- NOTE | 2019-10-10 06:36 | NUR ---
Patient in room ORTHO 4016. I have received report from CHRISTINE SANCHEZ and had the opportunity to ask questions and assume patient care.
[2019-10-10 07:28] LABS: ANISOCYTOSIS 1+; PLATELET ESTIMATE NORMAL; TOTAL CELLS COUNTED 100
[2019-10-10 07:29] LABS: POIKILOCYTOSIS FEW; POLYCHROMASIA FEW
[2019-10-10] MEDS: K and/or MAG REPLACEMENT MC SCH ×2 (08:00→19:12)
[2019-10-10] MEDS: CefTRIAXone 2gm/D5W 50ml 50 ML IV SCH (08:20)
[2019-10-10] MEDS: pantoprazole 40mg Tablet.DR PO SCH (09:44)
[2019-10-10] MEDS: aspirin/dipyridamole 25mg/200mg SR. capsule PO SCH ×2 (09:45→20:54)
[2019-10-10] MEDS: lactobacillus rhamnosus 10,000 MMU CELLS/CAPSULE PO SCH ×2 (09:46→20:52)
[2019-10-10] MEDS: chlorthalidone 25mg tablet PO SCH (09:46)
[2019-10-10] MEDS: docusate sod 100mg capsule PO SCH ×2 (09:46→20:52)
[2019-10-10] MEDS: atorvastatin 20mg tablet PO SCH (09:47)
[2019-10-10] MEDS: duloxetine 30mg CAPSULE.DR PO SCH (09:47)
[2019-10-10] MEDS: tamsulosin 0.4mg capsule PO SCH (09:47)
[2019-10-10] MEDS: metoprolol tartrate 25mg tablet PO SCH ×2 (09:48→21:05)
[2019-10-10] MEDS: FLUoxetine 20mg capsule PO SCH ×2 (09:49→20:52)
[2019-10-10] MEDS: finasteride 5mg tablet PO SCH (09:49)
[2019-10-10] MEDS: vancomycin/NS 1 GM ADD-VANTAGE 250 ML IV SCH (09:51)
[2019-10-10 10:00] VITALS: BP 136/79
--- NOTE | 2019-10-10 11:49 | NUR ---
Initial: Pt admit with post-op R hip infection s/p I&D. PO 75-100% avg meals. Pt/family seen by RD for written/verbal high protein ed w/ RD contact information provided. Pt is agreeable to double proteins TIDWM; dietary notified. LBM 10/09. Will continue to monitor for additional protein needs. Rec: 1. continue carb controlled diet; double proteins TIDWM 2. bowel care as needed 3. wt per rx Addendum: 10/10/19 at [address] Amended: Links added.
[2019-10-10 18:00] VITALS: BP 158/80
--- NOTE | 2019-10-10 18:25 | NUR ---
Problems reprioritized. Patient report given, questions answered & plan of care reviewed with CHRISTINE LEVINE.
--- NOTE | 2019-10-10 18:51 | NUR ---
pt wants to wait til after 8pm for pain medication. Addendum: 10/10/19 at 1854 by Noelle Webster RN Amended: Links added.
[2019-10-10] MEDS: Melatonin 3mg tablet PO SCH (20:53)
[2019-10-10] MEDS: gabapentin 400mg capsule PO SCH (20:53)
[2019-10-10] MEDS: insulin glargine (Lantus) pen - multi-dose SQ SCH (21:00)
[2019-10-10 22:00] VITALS: BP 142/81
[2019-10-11 06:00] VITALS: BP 150/82
--- NOTE | 2019-10-11 06:14 | NUR ---
REPORT GIVEN TO CHRISTINE XIONG.
--- NOTE | 2019-10-11 06:29 | NUR ---
Patient in room ORTHO 4016. I have received report from CHRISTINE Drake and had the opportunity to ask questions and assume patient care.
[2019-10-11] MEDS: pantoprazole 40mg Tablet.DR PO SCH (06:35)
[2019-10-11] MEDS: HYDROcodone/acetaminophen 10/325mg tab PO PRN ×2 (06:36→13:23)
[2019-10-11 06:49] LABS: BASOPHILS % (AUTO) 0.3 % (0-1); EOSINOPHILS # (AUTO) 0.2 X10'3 (0-0.9); EOSINOPHILS % (AUTO) 2.9 % (0-6); HEMOGLOBIN 8.4 g/dl (14.0-17.9); LYMPHOCYTES # (AUTO) 0.8 X10'3 (1.1-4.8); LYMPHOCYTES % (AUTO) 9.6 % (21-51); MEAN CORPUSCULAR HEMOGLOBIN 27.2 PG (27.0-31.0); MEAN CORPUSCULAR HGB CONC 33.4 g/dL (33.0-36.5); MEAN CORPUSCULAR VOLUME 81.5 FL (78-98); MONOCYTES # (AUTO) 0.9 X10'3 (0-0.9); MONOCYTES % (AUTO) 11.9 % (2-12); NEUTROPHILS # (AUTO) 5.9 X10'3 (1.8-7.7); NEUTROPHILS % (AUTO) 75.3 % (42-75); PLATELET COUNT 186 X10'3 (140-440); RED BLOOD COUNT 3.07 X10'6 (4.70-6.10); RED CELL DISTRIBUTION WIDTH 17.5 % (11.5-14.5); WHITE BLOOD COUNT 7.8 X10'3 (4.5-11.0)
[2019-10-11 06:54] LABS: ALBUMIN 2.1 G/DL (3.4-5.0); ANION GAP 10 (8-16); BLOOD UREA NITROGEN 33 MG/DL (7-18); CALCIUM 9.8 MG/DL (8.5-10.1); CHLORIDE 108 MMOL/L (99-107); CREATININE 2.54 MG/DL (0.60-1.10); GLUCOSE 142 MG/DL (70-104); MAGNESIUM 1.5 MG/DL (1.5-2.4); POTASSIUM 3.8 MMOL/L (3.5-5.1); SODIUM 140 MMOL/L (135-145); TOTAL CARBON DIOXIDE 22.5 MMOL/L (24-32); eGFR 25 ML/MIN
[2019-10-11] MEDS: K and/or MAG REPLACEMENT MC SCH ×2 (07:12→20:00)
[2019-10-11] MEDS: aspirin/dipyridamole 25mg/200mg SR. capsule PO SCH ×2 (07:25→20:10)
[2019-10-11] MEDS: lactobacillus rhamnosus 10,000 MMU CELLS/CAPSULE PO SCH ×2 (07:26→20:09)
[2019-10-11] MEDS: duloxetine 30mg CAPSULE.DR PO SCH (07:26)
[2019-10-11] MEDS: docusate sod 100mg capsule PO SCH ×2 (07:26→20:08)
[2019-10-11] MEDS: chlorthalidone 25mg tablet PO SCH (07:26)
[2019-10-11] MEDS: metoprolol tartrate 25mg tablet PO SCH ×2 (07:27→20:12)
[2019-10-11] MEDS: atorvastatin 20mg tablet PO SCH (07:27)
[2019-10-11] MEDS: tamsulosin 0.4mg capsule PO SCH (07:27)
[2019-10-11] MEDS: finasteride 5mg tablet PO SCH (07:28)
[2019-10-11] MEDS: FLUoxetine 20mg capsule PO SCH ×2 (07:28→20:08)
[2019-10-11] MEDS: CefTRIAXone 2gm/D5W 50ml 50 ML IV SCH (07:30)
[2019-10-11] MEDS: normal saline 1000ml 1,000 ML IV SCH (08:42)
[2019-10-11] MEDS: vancomycin/NS 1 GM ADD-VANTAGE 250 ML IV SCH (08:45)
[2019-10-11 10:00] VITALS: BP 127/74
--- NOTE | 2019-10-11 13:00 | NUR ---
[facility] LINE: LOT: [id number] REF: [id number] EXP: 03/31/2020
[2019-10-11] MEDS: HYDROmorphone 1 mg/ml syringe IV PRN (15:03)
[2019-10-11 18:00] VITALS: BP 136/76
--- NOTE | 2019-10-11 18:06 | NUR ---
Problems reprioritized. Patient report given, questions answered & plan of care reviewed with CHRISTINE LEVINE.
[2019-10-11] MEDS: rifampin 300mg capsule PO SCH (20:09)
[2019-10-11] MEDS: Melatonin 3mg tablet PO SCH (20:09)
[2019-10-11] MEDS: gabapentin 400mg capsule PO SCH (20:10)
[2019-10-11] MEDS: insulin glargine (Lantus) pen - multi-dose SQ SCH (20:15)
[2019-10-11 22:00] VITALS: BP 146/76
[2019-10-12] MEDS: HYDROcodone/acetaminophen 10/325mg tab PO PRN ×4 (00:57→22:27)
[2019-10-12] MEDS: HYDROmorphone 1 mg/ml syringe IV PRN ×2 (02:44→15:34)
[2019-10-12 05:32] LABS: BASOPHILS % (AUTO) 0.3 % (0-1); EOSINOPHILS # (AUTO) 0.3 X10'3 (0-0.9); EOSINOPHILS % (AUTO) 4.2 % (0-6); HEMATOCRIT 23.2 % (42.0-52.0); HEMOGLOBIN 7.9 g/dl (14.0-17.9); MEAN CORPUSCULAR HEMOGLOBIN 27.5 PG (27.0-31.0); MEAN CORPUSCULAR VOLUME 80.9 FL (78-98); MEAN PLATELET VOLUME 8.1 FL (7.4-10.4); MONOCYTES # (AUTO) 0.9 X10'3 (0-0.9); MONOCYTES % (AUTO) 12.4 % (2-12); NEUTROPHILS # (AUTO) 4.7 X10'3 (1.8-7.7); NEUTROPHILS % (AUTO) 69.1 % (42-75); PLATELET COUNT 184 X10'3 (140-440); RED BLOOD COUNT 2.86 X10'6 (4.70-6.10); RED CELL DISTRIBUTION WIDTH 17.8 % (11.5-14.5); WHITE BLOOD COUNT 6.8 X10'3 (4.5-11.0)
[2019-10-12 05:49] LABS: ALANINE AMINOTRANSFERASE 7 U/L (12-78); ALBUMIN 2.1 G/DL (3.4-5.0); ALBUMIN/GLOBULIN RATIO 0.7 (1.1-1.5); ALKALINE PHOSPHATASE 39 IU/L (46-116); ANION GAP 13 (8-16); ASPARTATE AMINO TRANSFERASE 11 U/L (10-37); BILIRUBIN,TOTAL 0.4 MG/DL (0.1-1.0); BLOOD UREA NITROGEN 42 MG/DL (7-18); BUN/CREATININE RATIO 12.2 (5.4-32.0); CHLORIDE 108 MMOL/L (99-107); CREATININE 3.43 MG/DL (0.60-1.10); GLUCOSE 143 MG/DL (70-104); MAGNESIUM 1.6 MG/DL (1.5-2.4); PHOSPHORUS 4.6 MG/DL (2.3-4.5); POTASSIUM 3.9 MMOL/L (3.5-5.1); SODIUM 141 MMOL/L (135-145); TOTAL CARBON DIOXIDE 20.5 MMOL/L (24-32); TOTAL PROTEIN 5.2 G/DL (6.4-8.2); eGFR 18 ML/MIN
[2019-10-12 06:00] VITALS: BP 147/76
--- NOTE | 2019-10-12 06:11 | NUR ---
REPORT GIVEN TO CHRISTINE WATTERS.
[2019-10-12] MEDS: aspirin/dipyridamole 25mg/200mg SR. capsule PO SCH ×2 (08:00→20:16)
[2019-10-12] MEDS: vancomycin/NS 1 GM ADD-VANTAGE 250 ML IV SCH (08:08)
[2019-10-12] MEDS: pantoprazole 40mg Tablet.DR PO SCH (08:09)
[2019-10-12] MEDS: docusate sod 100mg capsule PO SCH ×2 (08:09→20:16)
[2019-10-12] MEDS: tamsulosin 0.4mg capsule PO SCH (08:09)
[2019-10-12] MEDS: FLUoxetine 20mg capsule PO SCH ×2 (08:09→20:17)
[2019-10-12] MEDS: lactobacillus rhamnosus 10,000 MMU CELLS/CAPSULE PO SCH ×2 (08:09→20:16)
[2019-10-12] MEDS: metoprolol tartrate 25mg tablet PO SCH ×2 (08:09→20:17)
[2019-10-12] MEDS: chlorthalidone 25mg tablet PO SCH (08:09)
[2019-10-12] MEDS: duloxetine 30mg CAPSULE.DR PO SCH (08:10)
[2019-10-12] MEDS: atorvastatin 20mg tablet PO SCH (08:10)
[2019-10-12] MEDS: finasteride 5mg tablet PO SCH (08:16)
[2019-10-12] MEDS: rifampin 300mg capsule PO SCH ×2 (08:16→20:16)
[2019-10-12] MEDS: K and/or MAG REPLACEMENT MC SCH ×2 (08:23→20:00)
--- NOTE | 2019-10-12 09:15 | NUR ---
ROGER SECURITY SUPERVISOR IN TO PULL PATIENTS HEMOVAC.
[2019-10-12 10:00] VITALS: BP 119/71
[2019-10-12] MEDS ORDERED: normal saline 1000ml 1,000 ML IV ONE (12:35)
--- NOTE | 2019-10-12 13:12 | NUR ---
WOUND INFECTION EDUCATION PROVIDED BY WOUND CARE 1. Patient instructed to call their primary doctor, or go the ED immediately if any of the following symptoms occur: * Increased pain in wound * Increase in drainage from the wound * Redness in the skin surrounding the wound * Warmth in the skin surrounding the wound * Bleeding from the wound * Temperature of 101 or greater 2. If any of these occur while in the hospital tell a nurse immediately. Addendum: 10/12/19 at 1313 by Kay Santiago RN Amended: Links added.
[2019-10-12] MEDS: normal saline 1000ml 1,000 ML IV SCH (15:39)
[2019-10-12 18:00] VITALS: BP 148/88
--- NOTE | 2019-10-12 18:11 | NUR ---
Problems reprioritized. Patient report given, questions answered & plan of care reviewed with Noelle KING.
[2019-10-12] MEDS: gabapentin 400mg capsule PO SCH (20:16)
[2019-10-12] MEDS: Melatonin 3mg tablet PO SCH (20:17)
[2019-10-12] MEDS: insulin glargine (Lantus) pen - multi-dose SQ SCH (20:18)
[2019-10-12 22:00] VITALS: BP 133/95
[2019-10-12 22:43] LABS: TOTAL PROTEIN,URINE RANDOM 123.4 MG/DL
[2019-10-13] MEDS: HYDROmorphone 1 mg/ml syringe IV PRN ×3 (00:20→20:55)
[2019-10-13] MEDS: normal saline 1000ml 1,000 ML IV SCH ×2 (01:55→18:20)
[2019-10-13 06:00] VITALS: BP 168/84
--- NOTE | 2019-10-13 06:00 | NUR ---
Patient in room ORTHO 4016. I have received report from CHRISTINE LEVINE and had the opportunity to ask questions and assume patient care.
[2019-10-13 06:14] LABS: BASOPHILS % (AUTO) 0.8 % (0-1); EOSINOPHILS # (AUTO) 0.4 X10'3 (0-0.9); EOSINOPHILS % (AUTO) 6.3 % (0-6); HEMATOCRIT 22.4 % (42.0-52.0); HEMOGLOBIN 7.6 g/dl (14.0-17.9); LYMPHOCYTES # (AUTO) 0.9 X10'3 (1.1-4.8); LYMPHOCYTES % (AUTO) 15.6 % (21-51); MEAN CORPUSCULAR HEMOGLOBIN 27.3 PG (27.0-31.0); MEAN CORPUSCULAR HGB CONC 33.8 g/dL (33.0-36.5); MEAN CORPUSCULAR VOLUME 80.6 FL (78-98); MEAN PLATELET VOLUME 8.2 FL (7.4-10.4); MONOCYTES # (AUTO) 0.7 X10'3 (0-0.9); MONOCYTES % (AUTO) 13.1 % (2-12); NEUTROPHILS # (AUTO) 3.6 X10'3 (1.8-7.7); NEUTROPHILS % (AUTO) 64.2 % (42-75); PLATELET COUNT 196 X10'3 (140-440); RED BLOOD COUNT 2.77 X10'6 (4.70-6.10); RED CELL DISTRIBUTION WIDTH 17.7 % (11.5-14.5); WHITE BLOOD COUNT 5.7 X10'3 (4.5-11.0)
[2019-10-13 06:20] LABS: ALANINE AMINOTRANSFERASE 7 U/L (12-78); ALBUMIN/GLOBULIN RATIO 0.7 (1.1-1.5); ALKALINE PHOSPHATASE 42 IU/L (46-116); ANION GAP 12 (8-16); ASPARTATE AMINO TRANSFERASE 11 U/L (10-37); BILIRUBIN,TOTAL 0.5 MG/DL (0.1-1.0); BLOOD UREA NITROGEN 48 MG/DL (7-18); BUN/CREATININE RATIO 13.8 (5.4-32.0); CHLORIDE 111 MMOL/L (99-107); CREATININE 3.47 MG/DL (0.60-1.10); GLUCOSE 162 MG/DL (70-104); MAGNESIUM 1.6 MG/DL (1.5-2.4); PHOSPHORUS 4.6 MG/DL (2.3-4.5); POTASSIUM 3.7 MMOL/L (3.5-5.1); SODIUM 143 MMOL/L (135-145); TOTAL CARBON DIOXIDE 19.6 MMOL/L (24-32); eGFR 18 ML/MIN
--- NOTE | 2019-10-13 06:34 | NUR ---
REPORT GIVEN TO CHRISTINE XIONG.
[2019-10-13] MEDS: HYDROcodone/acetaminophen 10/325mg tab PO PRN ×3 (06:48→17:23)
[2019-10-13] MEDS ORDERED: vancomycin/NS 1 GM ADD-VANTAGE 250 ML IV PRN (07:20)
[2019-10-13] MEDS ORDERED: VANCOMYCIN LEVEL IV ONE (07:30)
[2019-10-13] MEDS: K and/or MAG REPLACEMENT MC SCH ×2 (08:00→20:00)
[2019-10-13] MEDS: pantoprazole 40mg Tablet.DR PO SCH (08:34)
[2019-10-13] MEDS: aspirin/dipyridamole 25mg/200mg SR. capsule PO SCH ×2 (08:35→20:50)
[2019-10-13] MEDS: chlorthalidone 25mg tablet PO SCH (08:35)
[2019-10-13] MEDS: duloxetine 30mg CAPSULE.DR PO SCH (08:36)
[2019-10-13] MEDS: tamsulosin 0.4mg capsule PO SCH (08:36)
[2019-10-13] MEDS: lactobacillus rhamnosus 10,000 MMU CELLS/CAPSULE PO SCH ×2 (08:36→20:48)
[2019-10-13] MEDS: docusate sod 100mg capsule PO SCH ×2 (08:36→20:48)
[2019-10-13] MEDS: atorvastatin 20mg tablet PO SCH (08:36)
[2019-10-13] MEDS: metoprolol tartrate 25mg tablet PO SCH (08:37)
[2019-10-13] MEDS: finasteride 5mg tablet PO SCH (08:38)
[2019-10-13] MEDS: FLUoxetine 20mg capsule PO SCH ×2 (08:38→20:48)
[2019-10-13] MEDS: rifampin 300mg capsule PO SCH ×2 (08:38→20:50)
[2019-10-13] MEDS ORDERED: epoetin 20,000 units/ml inj IV ONE (12:20)
[2019-10-13 13:04] VITALS: BP 155/87
--- NOTE | 2019-10-13 13:09 | NUR ---
PAGER ID: [phone] MESSAGE: TYRESE [id number]-RE: JANE SEBASTIAN 4016...DR. BERRIOS WAS IN TO SEE PT
[2019-10-13 15:16] LABS: % IRON SATURATION 29 % (11-46); IRON 51 UG/DL (53-167); TOTAL IRON BINDING CAPACITY 175 UG/DL (259-388)
[2019-10-13 18:00] VITALS: BP 170/88
--- NOTE | 2019-10-13 18:10 | NUR ---
Problems reprioritized. Patient report given, questions answered & plan of care reviewed with waldemar szymanski.
--- NOTE | 2019-10-13 18:43 | NUR ---
Patient in room ORTHO 4016. I have received report from Deirdre KING and had the opportunity to ask questions and assume patient care.
[2019-10-13] MEDS: gabapentin 400mg capsule PO SCH (20:48)
[2019-10-13] MEDS: Melatonin 3mg tablet PO SCH (20:48)
[2019-10-13] MEDS: insulin glargine (Lantus) pen - multi-dose SQ SCH (21:00)
[2019-10-13] MEDS ORDERED: sodium bicarbonate (8.4%) inj. 50 MEQ in normal saline 1000ml 1,000 ML IV SCH (21:50)
[2019-10-13 22:00] VITALS: BP 160/85
[2019-10-13] MEDS ORDERED: SODIUM BICARBONATE IV SCH (22:11)
[2019-10-13] MEDS ORDERED: SODIUM CHLORIDE 0.45% IV SCH (22:11)
[2019-10-13] MEDS: sodium bicarbonate (8.4%) inj. 100 MEQ in sodium chloride 0.45% 1,000 ML IV SCH (22:47)
--- NOTE | 2019-10-14 00:23 | NUR ---
Problems reprioritized. Patient report given, questions answered & plan of care reviewed with Mary KING.
--- NOTE | 2019-10-14 00:58 | NUR ---
Patient in room ORTHO 4016. I have received report from Elisa KING and had the opportunity to ask questions and assume patient care.
--- NOTE | 2019-10-14 00:58 | NUR ---
pawn shop keeper: I have reviewed and agree with all interventions, assessments performed and documented by Elisa KING.
[2019-10-14] MEDS: HYDROmorphone 1 mg/ml syringe IV PRN ×4 (01:43→20:08)
[2019-10-14 03:27] LABS: BASOPHILS # (AUTO) 0.1 X10'3 (0-0.2); BASOPHILS % (AUTO) 0.9 % (0-1); EOSINOPHILS # (AUTO) 0.4 X10'3 (0-0.9); EOSINOPHILS % (AUTO) 6.6 % (0-6); HEMOGLOBIN 7.2 g/dl (14.0-17.9); MEAN CORPUSCULAR HEMOGLOBIN 27.2 PG (27.0-31.0); MEAN CORPUSCULAR HGB CONC 33.6 g/dL (33.0-36.5); MEAN PLATELET VOLUME 7.5 FL (7.4-10.4); MONOCYTES # (AUTO) 0.7 X10'3 (0-0.9); MONOCYTES % (AUTO) 12.8 % (2-12); NEUTROPHILS # (AUTO) 3.7 X10'3 (1.8-7.7); NEUTROPHILS % (AUTO) 62.7 % (42-75); PLATELET COUNT 181 X10'3 (140-440); RED BLOOD COUNT 2.66 X10'6 (4.70-6.10); RED CELL DISTRIBUTION WIDTH 17.5 % (11.5-14.5); WHITE BLOOD COUNT 5.8 X10'3 (4.5-11.0)
[2019-10-14 03:49] LABS: HEMATOCRIT 21.5 % (42.0-52.0)
[2019-10-14] MEDS: VANCOMYCIN LEVEL IV SCH (03:53)
[2019-10-14 03:54] LABS: ALANINE AMINOTRANSFERASE 8 U/L (12-78); ALBUMIN 2.1 G/DL (3.4-5.0); ALBUMIN/GLOBULIN RATIO 0.8 (1.1-1.5); ALKALINE PHOSPHATASE 47 IU/L (46-116); ANION GAP 11 (8-16); ASPARTATE AMINO TRANSFERASE 17 U/L (10-37); BILIRUBIN,TOTAL 0.4 MG/DL (0.1-1.0); BLOOD UREA NITROGEN 53 MG/DL (7-18); BUN/CREATININE RATIO 16.3 (5.4-32.0); CALCIUM 9.6 MG/DL (8.5-10.1); CHLORIDE 112 MMOL/L (99-107); CREATININE 3.26 MG/DL (0.60-1.10); GLUCOSE 140 MG/DL (70-104); MAGNESIUM 1.6 MG/DL (1.5-2.4); PHOSPHORUS 4.8 MG/DL (2.3-4.5); POTASSIUM 3.8 MMOL/L (3.5-5.1); SODIUM 143 MMOL/L (135-145); TOTAL CARBON DIOXIDE 20.1 MMOL/L (24-32); TOTAL PROTEIN 4.8 G/DL (6.4-8.2); eGFR 19 ML/MIN
[2019-10-14 04:28] LABS: TOTAL CELLS COUNTED 100
[2019-10-14 04:30] LABS: ANISOCYTOSIS 1+; PLATELET ESTIMATE NORMAL
--- NOTE | 2019-10-14 04:37 | NUR ---
Page Sent promotional table spacer PAGER ID: [phone] MESSAGE: [id number] Mack Barrientos critical Hct 21.5 from 22.4. Hgb is 7.2. Esme [id number]
[2019-10-14 06:00] VITALS: BP 163/85
--- NOTE | 2019-10-14 06:09 | NUR ---
Problems reprioritized. Patient report given, questions answered & plan of care reviewed with Stephanie KING.
--- NOTE | 2019-10-14 06:31 | NUR ---
Patient in room ORTHO 4016. Andrew SIEGEL and Ana Maria almaraz have received report from Mel Siegel and had the opportunity to ask questions and assume patient care. Addendum: 10/14/19 at 0730 by Stephanie Vargas RN Received report from Esme SIEGEL, not Mel Siegel
[2019-10-14] MEDS: aspirin/dipyridamole 25mg/200mg SR. capsule PO SCH ×2 (07:37→20:11)
[2019-10-14] MEDS: docusate sod 100mg capsule PO SCH ×2 (07:37→20:12)
[2019-10-14] MEDS: duloxetine 30mg CAPSULE.DR PO SCH (07:37)
[2019-10-14] MEDS: pantoprazole 40mg Tablet.DR PO SCH (07:37)
[2019-10-14] MEDS: lactobacillus rhamnosus 10,000 MMU CELLS/CAPSULE PO SCH ×2 (07:37→20:12)
[2019-10-14] MEDS: HYDROcodone/acetaminophen 10/325mg tab PO PRN ×2 (07:38→13:18)
[2019-10-14] MEDS: finasteride 5mg tablet PO SCH (07:38)
[2019-10-14] MEDS: tamsulosin 0.4mg capsule PO SCH (07:38)
[2019-10-14] MEDS: atorvastatin 20mg tablet PO SCH (07:38)
[2019-10-14] MEDS: FLUoxetine 20mg capsule PO SCH ×2 (07:38→20:12)
[2019-10-14] MEDS: rifampin 300mg capsule PO SCH ×2 (07:38→20:11)
[2019-10-14] MEDS: K and/or MAG REPLACEMENT MC SCH ×2 (08:00→20:00)
[2019-10-14 09:10] LABS: OCCULT BLOOD STOOL NEGATIVE (Neg)
[2019-10-14] MEDS: sodium bicarbonate (8.4%) inj. 100 MEQ in sodium chloride 0.45% 1,000 ML IV SCH ×2 (09:57→20:11)
[2019-10-14 10:00] VITALS: BP 140/88
--- NOTE | 2019-10-14 10:57 | NUR ---
PAGER ID: [phone] MESSAGE: EDIEXAVIER [id number] RE: JAZ 4016 BP HAS BEEN ELEVATED. CHLORTHALIDONE WAS CONTINUED ON MED REC BUT NOT ON EMAR. MAYBE BP MED?
--- NOTE | 2019-10-14 14:18 | NUR ---
Reassessment: Pt PO 75-100% avg meals receiving double proteins TIDWM meeting needs. LBM 10/12. No nutrition concerns at this time. Will continue to monitor. Rec: 1. continue carb controlled diet; double proteins TIDWM 2. bowel care as needed 3. wt per rx Addendum: 10/14/19 at [address] Amended: Links added.
--- NOTE | 2019-10-14 17:52 | NUR ---
PAGER ID: [phone] MESSAGE: HARRY [id number] RE: JAZ 8008 BP 160/84 NO BP MEDS ORDERED.
[2019-10-14 18:00] VITALS: BP 160/84
--- NOTE | 2019-10-14 18:00 | NUR ---
Patient in room ORTHO 4016. I have received report from CHRISTINE Morales and had the opportunity to ask questions and assume patient care.
--- NOTE | 2019-10-14 18:10 | NUR ---
Problems reprioritized. Patient report given, questions answered & plan of care reviewed with GARCIA KING.
[2019-10-14] MEDS: gabapentin 400mg capsule PO SCH (20:11)
[2019-10-14] MEDS: Melatonin 3mg tablet PO SCH (20:12)
[2019-10-14] MEDS: insulin glargine (Lantus) pen - multi-dose SQ SCH (21:00)
[2019-10-14 22:00] VITALS: BP 166/87
[2019-10-15] MEDS: HYDROmorphone 1 mg/ml syringe IV PRN ×6 (01:09→20:56)
[2019-10-15] MEDS: VANCOMYCIN LEVEL IV SCH (03:00)
[2019-10-15 06:00] VITALS: BP 161/92
[2019-10-15 06:00] LABS: BASOPHILS # (AUTO) 0.1 X10'3 (0-0.2); EOSINOPHILS # (AUTO) 0.3 X10'3 (0-0.9); EOSINOPHILS % (AUTO) 4.4 % (0-6); HEMOGLOBIN 7.3 g/dl (14.0-17.9); LYMPHOCYTES # (AUTO) 1.1 X10'3 (1.1-4.8); LYMPHOCYTES % (AUTO) 18.9 % (21-51); MEAN CORPUSCULAR HEMOGLOBIN 26.8 PG (27.0-31.0); MEAN CORPUSCULAR HGB CONC 33.5 g/dL (33.0-36.5); MEAN CORPUSCULAR VOLUME 80.2 FL (78-98); MEAN PLATELET VOLUME 8.2 FL (7.4-10.4); MONOCYTES # (AUTO) 0.7 X10'3 (0-0.9); MONOCYTES % (AUTO) 12.2 % (2-12); NEUTROPHILS # (AUTO) 3.8 X10'3 (1.8-7.7); NEUTROPHILS % (AUTO) 63.5 % (42-75); PLATELET COUNT 165 X10'3 (140-440); RED BLOOD COUNT 2.71 X10'6 (4.70-6.10); RED CELL DISTRIBUTION WIDTH 17.9 % (11.5-14.5); WHITE BLOOD COUNT 6.1 X10'3 (4.5-11.0)
--- NOTE | 2019-10-15 06:00 | NUR ---
Patient in room ORTHO 4016. I have received report from GARCIA KING and had the opportunity to ask questions and assume patient care.
--- NOTE | 2019-10-15 06:11 | NUR ---
Problems reprioritized. Patient report given, questions answered & plan of care reviewed with CHRISTINE Morales.
[2019-10-15 06:17] LABS: ALANINE AMINOTRANSFERASE 10 U/L (12-78); ALBUMIN 2.2 G/DL (3.4-5.0); ALBUMIN/GLOBULIN RATIO 0.8 (1.1-1.5); ALKALINE PHOSPHATASE 44 IU/L (46-116); ANION GAP 12 (8-16); ASPARTATE AMINO TRANSFERASE 23 U/L (10-37); BILIRUBIN,TOTAL 0.7 MG/DL (0.1-1.0); BLOOD UREA NITROGEN 58 MG/DL (7-18); BUN/CREATININE RATIO 15.9 (5.4-32.0); CALCIUM 9.3 MG/DL (8.5-10.1); CHLORIDE 110 MMOL/L (99-107); CREATININE 3.65 MG/DL (0.60-1.10); GLUCOSE 143 MG/DL (70-104); MAGNESIUM 1.5 MG/DL (1.5-2.4); PHOSPHORUS 4.9 MG/DL (2.3-4.5); POTASSIUM 3.8 MMOL/L (3.5-5.1); SODIUM 145 MMOL/L (135-145); TOTAL CARBON DIOXIDE 23.1 MMOL/L (24-32); VANCOMYCIN,TROUGH 18.9 UG/ML (6.0-14.0); eGFR 17 ML/MIN
[2019-10-15 06:32] LABS: HEMATOCRIT 21.7 % (42.0-52.0)
--- NOTE | 2019-10-15 07:54 | NUR ---
PAGER ID: [phone] MESSAGE: HARRY [id number] RE: JAZ [id number] CRIT[address] HCT 21.7 DR BERRIOS HERE NOW, ALSO TOLD HIM.
[2019-10-15] MEDS: K and/or MAG REPLACEMENT MC SCH ×2 (08:00→20:00)
[2019-10-15] MEDS ORDERED: epoetin 20,000 units/ml inj SQ ONE (08:00)
[2019-10-15] MEDS: pantoprazole 40mg Tablet.DR PO SCH (08:47)
[2019-10-15] MEDS: docusate sod 100mg capsule PO SCH ×2 (08:48→20:00)
[2019-10-15] MEDS: chlorthalidone 25mg tablet PO SCH (08:48)
[2019-10-15] MEDS: lactobacillus rhamnosus 10,000 MMU CELLS/CAPSULE PO SCH ×2 (08:48→20:55)
[2019-10-15] MEDS: FLUoxetine 20mg capsule PO SCH ×2 (08:49→20:56)
[2019-10-15] MEDS: duloxetine 30mg CAPSULE.DR PO SCH (08:49)
[2019-10-15] MEDS: finasteride 5mg tablet PO SCH (08:49)
[2019-10-15] MEDS: tamsulosin 0.4mg capsule PO SCH (08:49)
[2019-10-15] MEDS: rifampin 300mg capsule PO SCH ×2 (08:49→20:55)
[2019-10-15] MEDS: atorvastatin 20mg tablet PO SCH (08:49)
[2019-10-15] MEDS: aspirin/dipyridamole 25mg/200mg SR. capsule PO SCH ×2 (08:50→21:00)
[2019-10-15] MEDS: sodium bicarbonate (8.4%) inj. 100 MEQ in sodium chloride 0.45% 1,000 ML IV SCH (08:52)
[2019-10-15 10:00] VITALS: BP 160/93
[2019-10-15] MEDS: normal saline 1000ml 1,000 ML IV SCH (11:40)
[2019-10-15 14:00] VITALS: BP 152/92
--- NOTE | 2019-10-15 15:50 | NUR ---
PATIENT REPORTED MID STERNUM CHEST TIGHTNESS AFTER COMPLETING A WALK. STATED IT STARTED ABOUT 5FT INTO THE WALK, BUT DIDN'T ALERT STAFF UNTIL AFTER. STATES IT HAS SUBSIDED. WILL PERFORM EKG AND CONTINUE TO MONITOR.
[2019-10-15 18:00] VITALS: BP 164/91
--- NOTE | 2019-10-15 18:02 | NUR ---
Student documentation: I have reviewed and agree with all interventions, assessments performed and documented by TODD GUEVARA. Student Medication Administration: For this medication-pass time frame, all medication were reviewed, dispensed, administered and documented per hospital policy by TODD GUEVARA.
--- NOTE | 2019-10-15 18:05 | NUR ---
Problems reprioritized. Patient report given, questions answered & plan of care reviewed with WENDY KING.
--- NOTE | 2019-10-15 18:52 | NUR ---
Patient in room ORTHO 4016. I have received report from Andrew KING and had the opportunity to ask questions and assume patient care.
[2019-10-15] MEDS: gabapentin 400mg capsule PO SCH (20:55)
[2019-10-15] MEDS: insulin glargine (Lantus) pen - multi-dose SQ SCH (21:00)
[2019-10-15] MEDS: Melatonin 3mg tablet PO SCH (21:12)
[2019-10-15 22:00] VITALS: BP 168/93
[2019-10-16] VITALS (9 sets, daily range): BP systolic 159–196; BP diastolic 80–116
[2019-10-16] MEDS: normal saline 1000ml 1,000 ML IV SCH ×2 (01:04→15:49)
[2019-10-16] MEDS: HYDROmorphone 1 mg/ml syringe IV PRN ×6 (01:06→23:58)
[2019-10-16] MEDS: VANCOMYCIN LEVEL IV SCH (03:00)
--- NOTE | 2019-10-16 06:30 | NUR ---
Patient in room ORTHO 4016. I have received report from Jacklyn KING and had the opportunity to ask questions and assume patient care.
--- NOTE | 2019-10-16 07:11 | NUR ---
Problems reprioritized. Patient report given, questions answered & plan of care reviewed with LIONEL KING.
[2019-10-16] MEDS: pantoprazole 40mg Tablet.DR PO SCH (07:12)
[2019-10-16] MEDS: K and/or MAG REPLACEMENT MC SCH ×2 (08:00→20:00)
[2019-10-16] MEDS: atorvastatin 20mg tablet PO SCH (08:37)
[2019-10-16] MEDS: chlorthalidone 25mg tablet PO SCH (08:37)
[2019-10-16] MEDS: lactobacillus rhamnosus 10,000 MMU CELLS/CAPSULE PO SCH ×2 (08:37→20:12)
[2019-10-16] MEDS: tamsulosin 0.4mg capsule PO SCH (08:38)
[2019-10-16] MEDS: finasteride 5mg tablet PO SCH (08:38)
[2019-10-16] MEDS: FLUoxetine 20mg capsule PO SCH ×2 (08:38→20:08)
[2019-10-16] MEDS: docusate sod 100mg capsule PO SCH ×2 (08:38→20:08)
[2019-10-16] MEDS: rifampin 300mg capsule PO SCH ×2 (08:38→20:08)
[2019-10-16] MEDS: aspirin/dipyridamole 25mg/200mg SR. capsule PO SCH ×2 (08:38→20:07)
[2019-10-16] MEDS: duloxetine 30mg CAPSULE.DR PO SCH (08:38)
[2019-10-16 09:50] LABS: BASOPHILS # (AUTO) 0.1 X10'3 (0-0.2); BASOPHILS % (AUTO) 0.9 % (0-1); EOSINOPHILS # (AUTO) 0.2 X10'3 (0-0.9); EOSINOPHILS % (AUTO) 3.6 % (0-6); LYMPHOCYTES # (AUTO) 0.9 X10'3 (1.1-4.8); LYMPHOCYTES % (AUTO) 14.4 % (21-51); MEAN CORPUSCULAR HEMOGLOBIN 27.4 PG (27.0-31.0); MEAN CORPUSCULAR HGB CONC 33.8 g/dL (33.0-36.5); MEAN CORPUSCULAR VOLUME 81.1 FL (78-98); MEAN PLATELET VOLUME 7.6 FL (7.4-10.4); MONOCYTES # (AUTO) 0.8 X10'3 (0-0.9); MONOCYTES % (AUTO) 12.1 % (2-12); NEUTROPHILS # (AUTO) 4.5 X10'3 (1.8-7.7); PLATELET COUNT 125 X10'3 (140-440); RED BLOOD COUNT 2.45 X10'6 (4.70-6.10); RED CELL DISTRIBUTION WIDTH 18.1 % (11.5-14.5); WHITE BLOOD COUNT 6.5 X10'3 (4.5-11.0)
[2019-10-16 09:55] LABS: HEMATOCRIT 19.9 % (42.0-52.0); HEMOGLOBIN 6.7 g/dl (14.0-17.9)
[2019-10-16 10:04] LABS: ALANINE AMINOTRANSFERASE 11 U/L (12-78); ALBUMIN 2.2 G/DL (3.4-5.0); ALBUMIN/GLOBULIN RATIO 0.8 (1.1-1.5); ALKALINE PHOSPHATASE 46 IU/L (46-116); ASPARTATE AMINO TRANSFERASE 28 U/L (10-37); BILIRUBIN,TOTAL 0.7 MG/DL (0.1-1.0); BLOOD UREA NITROGEN 62 MG/DL (7-18); BUN/CREATININE RATIO 14.4 (5.4-32.0); CALCIUM 9.1 MG/DL (8.5-10.1); CHLORIDE 111 MMOL/L (99-107); CREATININE 4.32 MG/DL (0.60-1.10); GLUCOSE 122 MG/DL (70-104); MAGNESIUM 1.5 MG/DL (1.5-2.4); PHOSPHORUS 4.7 MG/DL (2.3-4.5); POTASSIUM 3.5 MMOL/L (3.5-5.1); TOTAL CARBON DIOXIDE 21.4 MMOL/L (24-32); TOTAL PROTEIN 4.8 G/DL (6.4-8.2); VANCOMYCIN,TROUGH 15.4 UG/ML (6.0-14.0); eGFR 14 ML/MIN
[2019-10-16 10:05] LABS: ANION GAP 11 (8-16); SODIUM 143 MMOL/L (135-145)
--- NOTE | 2019-10-16 10:15 | NUR ---
PAGER ID: [phone] MESSAGE: Shawna [id number] Mack Robledo in 4016- received critical lab H/H 6.7/19.9. If you want to transfuse he will need a new type and screen
[2019-10-16] MEDS ORDERED: amLODIPine 5mg tablet PO ONE (11:40)
--- NOTE | 2019-10-16 11:44 | NUR ---
I spoke to Dr Ledezma He want to continue home medication Nebivolol 5mg daily
[2019-10-16] MEDS: metoprolol tartrate 25mg tablet PO SCH ×2 (12:07→20:11)
[2019-10-16] MEDS ORDERED: tPA-cathflo 2 MG/2 ml IV flush IVF ONE (15:20)
--- NOTE | 2019-10-16 17:30 | NUR ---
I spoke to Dr. Ledezma about patient bp being high again, he ordered the hydralazine 20mg iv stat and 10mg q4 per parameters prn. Also eosinophil UA check for tubular necrosis ordered.
[2019-10-16] MEDS ORDERED: hydrALAZINE 20mg/ml inj. IV STA (17:34)
--- NOTE | 2019-10-16 18:30 | NUR ---
Problems reprioritized. Patient report given, questions answered & plan of care reviewed with Jacklyn Esquivel
--- NOTE | 2019-10-16 18:54 | NUR ---
Patient in room ORTHO 4016. I have received report from Polly KING and had the opportunity to ask questions and assume patient care.
[2019-10-16] MEDS: gabapentin 400mg capsule PO SCH (20:08)
[2019-10-16] MEDS: Melatonin 3mg tablet PO SCH (20:08)
[2019-10-16] MEDS: insulin glargine (Lantus) pen - multi-dose SQ SCH (21:00)
[2019-10-17 02:00] VITALS: BP 166/98
[2019-10-17] MEDS: VANCOMYCIN LEVEL IV SCH (03:44)
[2019-10-17 04:03] LABS: ALANINE AMINOTRANSFERASE 12 U/L (12-78); ALBUMIN 2.2 G/DL (3.4-5.0); ALBUMIN/GLOBULIN RATIO 0.8 (1.1-1.5); ALKALINE PHOSPHATASE 49 IU/L (46-116); ANION GAP 10 (8-16); ASPARTATE AMINO TRANSFERASE 25 U/L (10-37); BILIRUBIN,TOTAL 0.8 MG/DL (0.1-1.0); BLOOD UREA NITROGEN 67 MG/DL (7-18); BUN/CREATININE RATIO 13.7 (5.4-32.0); CHLORIDE 109 MMOL/L (99-107); CREATININE 4.89 MG/DL (0.60-1.10); GLUCOSE 152 MG/DL (70-104); MAGNESIUM 1.5 MG/DL (1.5-2.4); PHOSPHORUS 4.3 MG/DL (2.3-4.5); POTASSIUM 3.5 MMOL/L (3.5-5.1); SODIUM 141 MMOL/L (135-145); TOTAL CARBON DIOXIDE 21.7 MMOL/L (24-32); TOTAL PROTEIN 4.9 G/DL (6.4-8.2); VANCOMYCIN,TROUGH 14.2 UG/ML (6.0-14.0); eGFR 12 ML/MIN
[2019-10-17] MEDS: HYDROmorphone 1 mg/ml syringe IV PRN ×4 (04:21→20:41)
[2019-10-17] MEDS: normal saline 1000ml 1,000 ML IV SCH (05:57)
[2019-10-17 06:00] VITALS: BP 166/92
[2019-10-17 06:16] LABS: BASOPHILS # (AUTO) 0.1 X10'3 (0-0.2); BASOPHILS % (AUTO) 0.6 % (0-1); EOSINOPHILS # (AUTO) 0.2 X10'3 (0-0.9); EOSINOPHILS % (AUTO) 2.3 % (0-6); HEMATOCRIT 22.2 % (42.0-52.0); HEMOGLOBIN 7.4 g/dl (14.0-17.9); LYMPHOCYTES # (AUTO) 0.9 X10'3 (1.1-4.8); LYMPHOCYTES % (AUTO) 10.7 % (21-51); MEAN CORPUSCULAR HEMOGLOBIN 27.5 PG (27.0-31.0); MEAN CORPUSCULAR HGB CONC 33.3 g/dL (33.0-36.5); MEAN CORPUSCULAR VOLUME 82.4 FL (78-98); MEAN PLATELET VOLUME 7.7 FL (7.4-10.4); MONOCYTES # (AUTO) 0.9 X10'3 (0-0.9); MONOCYTES % (AUTO) 10.8 % (2-12); NEUTROPHILS # (AUTO) 6.7 X10'3 (1.8-7.7); NEUTROPHILS % (AUTO) 75.6 % (42-75); PLATELET COUNT 110 X10'3 (140-440); RED BLOOD COUNT 2.69 X10'6 (4.70-6.10); RED CELL DISTRIBUTION WIDTH 18.7 % (11.5-14.5); WHITE BLOOD COUNT 8.8 X10'3 (4.5-11.0)
--- NOTE | 2019-10-17 06:53 | NUR ---
REPORT TO EARLY SHIFT RNGAYLE
[2019-10-17 07:26] LABS: ANISOCYTOSIS 2+; PLATELET ESTIMATE DECREASED
[2019-10-17 07:27] LABS: POLYCHROMASIA FEW; SCHISTOCYTES FEW
[2019-10-17] MEDS: K and/or MAG REPLACEMENT MC SCH ×2 (08:00→20:00)
[2019-10-17] MEDS: duloxetine 30mg CAPSULE.DR PO SCH (08:53)
[2019-10-17] MEDS: lactobacillus rhamnosus 10,000 MMU CELLS/CAPSULE PO SCH ×2 (08:54→21:37)
[2019-10-17] MEDS: FLUoxetine 20mg capsule PO SCH ×2 (08:54→21:37)
[2019-10-17] MEDS: tamsulosin 0.4mg capsule PO SCH (08:54)
[2019-10-17] MEDS: amLODIPine 5mg tablet PO SCH (08:54)
[2019-10-17] MEDS: atorvastatin 20mg tablet PO SCH (08:54)
[2019-10-17] MEDS: rifampin 300mg capsule PO SCH ×2 (08:54→21:37)
[2019-10-17] MEDS: docusate sod 100mg capsule PO SCH ×2 (08:54→21:36)
[2019-10-17] MEDS: aspirin/dipyridamole 25mg/200mg SR. capsule PO SCH ×2 (08:54→21:36)
[2019-10-17] MEDS: pantoprazole 40mg Tablet.DR PO SCH (08:54)
[2019-10-17] MEDS: finasteride 5mg tablet PO SCH (08:55)
[2019-10-17 09:00] VITALS: BP 170/95
[2019-10-17] MEDS: metoprolol tartrate 25mg tablet PO SCH (09:00)
[2019-10-17] MEDS ORDERED: proCHLORperazine 10 MG/2 ml inj IV PRN (12:25)
[2019-10-17] MEDS: ondansetron/PF 4mg/2ml inj IV PRN (12:28)
[2019-10-17 16:28] LABS: CLARITY,URINE CLEAR (Clear); COLOR,URINE YELLOW (Yellow); GLUCOSE, URINE NEGATIVE (Neg); KETONES,URINE NEGATIVE (Neg); LEUKOCYTE ESTERASE ,URINE NEGATIVE (Neg); NITRITES, URINE NEGATIVE (Neg); OCCULT BLOOD,URINE MODERATE (Neg); PH,URINE 5.5 (4.8-8.0); PROTEIN,URINE >=300 mg/dl (Neg); UROBILINOGEN,URINE 0.2 E.U/dL (0.2-1.0)
[2019-10-17 16:30] LABS: UA COLLECTION TYPE VOIDED
[2019-10-17 16:39] LABS: BACTERIA,URINE NONE SEEN /HPF (Neg); COARSE GRANULAR CAST 0-3 /LPF (NEGATIVE); HYALINE CASTS 0-3 /LPF (NEGATIVE); MUCUS STRANDS NONE SEEN /LPF (Neg); RBC,URINE 0-2 /HPF (0-2); SQUAMOUS EPITHELIAL CELL,UR NONE SEEN /LPF (FEW); WBC,URINE NONE SEEN /HPF (0-4)
[2019-10-17] MEDS: BYSTOLIC 5 MG PO SCH (17:54)
[2019-10-17 18:00] VITALS: BP 172/100
[2019-10-17] MEDS ORDERED: HYDROmorphone 1 mg/ml syringe IV PRN (20:00)
[2019-10-17] MEDS: cloNIDine 0.1 mg tablet PO SCH (21:00)
[2019-10-17] MEDS ORDERED: cloNIDine 0.1 mg tablet PO ONE (21:00)
[2019-10-17] MEDS: Melatonin 3mg tablet PO SCH (21:39)
[2019-10-17] MEDS: gabapentin 400mg capsule PO SCH (21:47)
[2019-10-17 22:00] VITALS: BP 165/96
--- NOTE | 2019-10-18 00:49 | NUR ---
pt c/o being short of breath and feeling congested , lungs sound clear and pt is coughing but is non productive , vitals pulse ox 93 to 98% on room air, respirations slow at 14 to 16 per minute , encouraged to use the incentive spirometer and able to pull up to 1500 cc o2 on via nasal cannula and pulse ox at 98% Addendum: 10/18/19 at 0057 by Alma Rosa Betts RN Amended: Links added.
[2019-10-18 00:53] VITALS: BP 146/81
[2019-10-18] MEDS: HYDROmorphone 1 mg/ml syringe IV PRN ×2 (01:59→13:02)
[2019-10-18] MEDS: VANCOMYCIN LEVEL IV SCH (03:00)
[2019-10-18 06:00] VITALS: BP 151/91
[2019-10-18] MEDS: K and/or MAG REPLACEMENT MC SCH ×2 (08:00→20:00)
[2019-10-18 08:28] LABS: BASOPHILS # (AUTO) 0.1 X10'3 (0-0.2); BASOPHILS % (AUTO) 0.7 % (0-1); EOSINOPHILS # (AUTO) 0.3 X10'3 (0-0.9); EOSINOPHILS % (AUTO) 3.3 % (0-6); HEMATOCRIT 23.2 % (42.0-52.0); HEMOGLOBIN 7.7 g/dl (14.0-17.9); LYMPHOCYTES # (AUTO) 0.9 X10'3 (1.1-4.8); LYMPHOCYTES % (AUTO) 11.4 % (21-51); MEAN CORPUSCULAR HEMOGLOBIN 27.6 PG (27.0-31.0); MEAN CORPUSCULAR VOLUME 83.6 FL (78-98); MEAN PLATELET VOLUME 7.9 FL (7.4-10.4); MONOCYTES # (AUTO) 0.8 X10'3 (0-0.9); NEUTROPHILS # (AUTO) 5.6 X10'3 (1.8-7.7); NEUTROPHILS % (AUTO) 73.6 % (42-75); PLATELET COUNT 106 X10'3 (140-440); RED BLOOD COUNT 2.78 X10'6 (4.70-6.10); RED CELL DISTRIBUTION WIDTH 18.3 % (11.5-14.5); WHITE BLOOD COUNT 7.6 X10'3 (4.5-11.0)
[2019-10-18 08:39] LABS: ALANINE AMINOTRANSFERASE 13 U/L (12-78); ALBUMIN 2.4 G/DL (3.4-5.0); ALBUMIN/GLOBULIN RATIO 0.8 (1.1-1.5); ALKALINE PHOSPHATASE 57 IU/L (46-116); ANION GAP 11 (8-16); ASPARTATE AMINO TRANSFERASE 29 U/L (10-37); BILIRUBIN,TOTAL 0.7 MG/DL (0.1-1.0); BLOOD UREA NITROGEN 66 MG/DL (7-18); BUN/CREATININE RATIO 11.7 (5.4-32.0); CALCIUM 9.1 MG/DL (8.5-10.1); CHLORIDE 108 MMOL/L (99-107); CREATININE 5.66 MG/DL (0.60-1.10); GLUCOSE 129 MG/DL (70-104); MAGNESIUM 1.6 MG/DL (1.5-2.4); PHOSPHORUS 5.6 MG/DL (2.3-4.5); POTASSIUM 3.7 MMOL/L (3.5-5.1); SODIUM 141 MMOL/L (135-145); TOTAL CARBON DIOXIDE 21.7 MMOL/L (24-32); TOTAL PROTEIN 5.3 G/DL (6.4-8.2); VANCOMYCIN,TROUGH 11.9 UG/ML (6.0-14.0); eGFR 10 ML/MIN
[2019-10-18 09:33] LABS: ANISOCYTOSIS 2+; HYPOCHROMASIA 1+; LARGE PLATELETS FEW; PLATELET ESTIMATE DECREASED; POLYCHROMASIA 2+; TOTAL CELLS COUNTED 100
[2019-10-18 09:35] LABS: ELLIPTOCYTES FEW; SCHISTOCYTES FEW; TOXIC GRANULATION 1+
[2019-10-18 10:00] VITALS: BP 175/95
[2019-10-18] MEDS: duloxetine 30mg CAPSULE.DR PO SCH (10:01)
[2019-10-18] MEDS: rifampin 300mg capsule PO SCH (10:03)
[2019-10-18] MEDS: HYDROcodone/acetaminophen 10/325mg tab PO PRN (10:03)
[2019-10-18] MEDS: docusate sod 100mg capsule PO SCH ×2 (10:04→20:46)
[2019-10-18] MEDS: tamsulosin 0.4mg capsule PO SCH (10:04)
[2019-10-18] MEDS: atorvastatin 20mg tablet PO SCH (10:04)
[2019-10-18] MEDS: amLODIPine 5mg tablet PO SCH (10:04)
[2019-10-18] MEDS: pantoprazole 40mg Tablet.DR PO SCH (10:04)
[2019-10-18] MEDS: lactobacillus rhamnosus 10,000 MMU CELLS/CAPSULE PO SCH ×2 (10:04→20:46)
[2019-10-18] MEDS: FLUoxetine 20mg capsule PO SCH ×2 (10:05→20:46)
[2019-10-18] MEDS: finasteride 5mg tablet PO SCH (10:05)
[2019-10-18] MEDS: cloNIDine 0.1 mg tablet PO SCH ×3 (10:05→20:47)
[2019-10-18] MEDS: BYSTOLIC 5 MG PO SCH (10:05)
--- NOTE | 2019-10-18 12:07 | NUR ---
DR. DIAS WANTS PATIENT VANCO LEVEL TO BE BETWEEN 15-20
--- NOTE | 2019-10-18 12:19 | NUR ---
PAGER ID: [phone] MESSAGE: [id number] JANE SEBASTIAN Can we please restart his home 4mg PO dilaudid? He is getting the same here but IV. Elisa [phone]
[2019-10-18] MEDS: aspirin/dipyridamole 25mg/200mg SR. capsule PO SCH ×2 (13:03→23:48)
[2019-10-18 17:35] LABS: CLARITY,URINE CLEAR (Clear); COLOR,URINE YELLOW (Yellow); GLUCOSE, URINE NEGATIVE (Neg); KETONES,URINE NEGATIVE (Neg); LEUKOCYTE ESTERASE ,URINE NEGATIVE (Neg); NITRITES, URINE NEGATIVE (Neg); OCCULT BLOOD,URINE MODERATE (Neg); PH,URINE 5.5 (4.8-8.0); PROTEIN,URINE >=300 mg/dl (Neg); UROBILINOGEN,URINE 0.2 E.U/dL (0.2-1.0)
[2019-10-18 17:39] LABS: UA COLLECTION TYPE CLN CATCH MIDSTREAM
[2019-10-18 17:45] LABS: BACTERIA,URINE FEW /HPF (Neg); COARSE GRANULAR CAST 0-3 /LPF (NEGATIVE); HYALINE CASTS 0-3 /LPF (NEGATIVE); MUCUS STRANDS NONE SEEN /LPF (Neg); SQUAMOUS EPITHELIAL CELL,UR NONE SEEN /LPF (FEW); TRANSITIONAL EPI CELLS,URINE FEW /HPF; WBC,URINE 0-4 /HPF (0-4)
[2019-10-18 18:00] VITALS: BP 168/99
--- NOTE | 2019-10-18 18:46 | NUR ---
Problems reprioritized. Patient report given, questions answered & plan of care reviewed with NORBERTO KING.
[2019-10-18] MEDS: HYDROmorphone 2mg tablet PO PRN (19:27)
[2019-10-18] MEDS: famotidine 20mg tablet PO SCH (20:46)
[2019-10-18] MEDS: gabapentin 400mg capsule PO SCH (20:46)
[2019-10-18] MEDS: Melatonin 3mg tablet PO SCH (20:48)
[2019-10-18 22:00] VITALS: BP 169/98
[2019-10-19] VITALS (7 sets, daily range): BP systolic 165–186; BP diastolic 95–101
[2019-10-19] MEDS: VANCOMYCIN LEVEL IV SCH (03:00)
[2019-10-19 06:11] LABS: HBSAG SCREEN Negative (Negative); HEP B CORE AB, IGM Negative (Negative); HEPATITIS C ANTIBODY <0.1 s/co ratio (0.0-0.9)
[2019-10-19 06:12] LABS: BASOPHILS % (AUTO) 0.5 % (0-1); EOSINOPHILS # (AUTO) 0.2 X10'3 (0-0.9); EOSINOPHILS % (AUTO) 3.3 % (0-6); LYMPHOCYTES # (AUTO) 0.9 X10'3 (1.1-4.8); LYMPHOCYTES % (AUTO) 12.2 % (21-51); MEAN CORPUSCULAR HEMOGLOBIN 28.1 PG (27.0-31.0); MEAN CORPUSCULAR HGB CONC 33.4 g/dL (33.0-36.5); MEAN CORPUSCULAR VOLUME 84.1 FL (78-98); MEAN PLATELET VOLUME 8.8 FL (7.4-10.4); MONOCYTES # (AUTO) 0.8 X10'3 (0-0.9); MONOCYTES % (AUTO) 10.9 % (2-12); NEUTROPHILS # (AUTO) 5.1 X10'3 (1.8-7.7); NEUTROPHILS % (AUTO) 73.1 % (42-75); PLATELET COUNT 115 X10'3 (140-440); RED BLOOD COUNT 2.32 X10'6 (4.70-6.10); RED CELL DISTRIBUTION WIDTH 18.7 % (11.5-14.5)
[2019-10-19 06:19] LABS: HEMATOCRIT 19.5 % (42.0-52.0); HEMOGLOBIN 6.5 g/dl (14.0-17.9)
[2019-10-19 06:20] LABS: ALANINE AMINOTRANSFERASE 10 U/L (12-78); ALBUMIN 2.2 G/DL (3.4-5.0); ALBUMIN/GLOBULIN RATIO 0.9 (1.1-1.5); ALKALINE PHOSPHATASE 51 IU/L (46-116); ANION GAP 16 (8-16); ASPARTATE AMINO TRANSFERASE 32 U/L (10-37); BILIRUBIN,TOTAL 0.5 MG/DL (0.1-1.0); BLOOD UREA NITROGEN 73 MG/DL (7-18); BUN/CREATININE RATIO 11.1 (5.4-32.0); CALCIUM 8.9 MG/DL (8.5-10.1); CHLORIDE 107 MMOL/L (99-107); CREATININE 6.56 MG/DL (0.60-1.10); GLUCOSE 135 MG/DL (70-104); SODIUM 142 MMOL/L (135-145); TOTAL PROTEIN 4.7 G/DL (6.4-8.2); eGFR 9 ML/MIN
[2019-10-19 06:23] LABS: MAGNESIUM 1.7 MG/DL (1.5-2.4); PHOSPHORUS 6.1 MG/DL (2.3-4.5); POTASSIUM 3.9 MMOL/L (3.5-5.1)
--- NOTE | 2019-10-19 06:30 | NUR ---
Patient in room ORTHO 4016. I have received report from CHRISTINE Palacios and had the opportunity to ask questions and assume patient care.
[2019-10-19 06:31] LABS: VANCOMYCIN,TROUGH 20.1 UG/ML (6.0-14.0)
--- NOTE | 2019-10-19 06:54 | NUR ---
Shaina Davenport 1895 critical on [place] 4016 H&H 6.5 / 19.5
[2019-10-19] MEDS: K and/or MAG REPLACEMENT MC SCH ×2 (08:00→20:00)
[2019-10-19] MEDS ORDERED: ringers solution, lactated 500ml IV solution IV SCH (08:30)
[2019-10-19 08:35] LABS: ANISOCYTOSIS 2+; PLATELET ESTIMATE DECREASED; SCHISTOCYTES 1+
[2019-10-19 08:36] LABS: MICROCYTOSIS 1+; POLYCHROMASIA 1+
[2019-10-19] MEDS: cloNIDine 0.1 mg tablet PO SCH ×3 (08:36→21:41)
[2019-10-19] MEDS: aspirin/dipyridamole 25mg/200mg SR. capsule PO SCH (08:36)
[2019-10-19] MEDS: FLUoxetine 20mg capsule PO SCH ×2 (08:36→21:41)
[2019-10-19] MEDS: lactobacillus rhamnosus 10,000 MMU CELLS/CAPSULE PO SCH ×2 (08:37→21:41)
[2019-10-19] MEDS: atorvastatin 20mg tablet PO SCH (08:37)
[2019-10-19] MEDS: duloxetine 30mg CAPSULE.DR PO SCH (08:37)
[2019-10-19] MEDS: amLODIPine 5mg tablet PO SCH (08:37)
[2019-10-19] MEDS: tamsulosin 0.4mg capsule PO SCH (08:37)
[2019-10-19] MEDS: docusate sod 100mg capsule PO SCH ×2 (08:37→20:00)
[2019-10-19] MEDS: finasteride 5mg tablet PO SCH (08:38)
[2019-10-19] MEDS: famotidine 20mg tablet PO SCH ×2 (08:38→21:41)
[2019-10-19] MEDS: BYSTOLIC 5 MG PO SCH (08:38)
[2019-10-19] MEDS: HYDROmorphone 2mg tablet PO PRN ×2 (08:39→23:44)
[2019-10-19] MEDS: ondansetron/PF 4mg/2ml inj IV PRN (10:17)
--- NOTE | 2019-10-19 15:10 | NUR ---
Reassessment: Pt PO 75-100% avg meals receiving double proteins TIDWM meeting needs. LBM 10/17. No nutrition concerns at this time. Will continue to monitor. Rec: 1. continue carb controlled diet; double proteins TIDWM 2. bowel care as needed 3. wt per rx Addendum: 10/19/19 at [address] Amended: Links added.
--- NOTE | 2019-10-19 18:28 | NUR ---
Problems reprioritized. Patient report given, questions answered & plan of care reviewed with CHRISTINE Leal.
--- NOTE | 2019-10-19 18:56 | NUR ---
Per CHRISTINE Greggcredit charge authorizer nurse, per Dr. Vargas put in orders for stroke alert.
--- NOTE | 2019-10-19 19:37 | NUR ---
Neuro Tele Psyc initiated.
[2019-10-19 20:10] LABS: BASOPHILS # (AUTO) 0.1 X10'3 (0-0.2); BASOPHILS % (AUTO) 0.8 % (0-1); EOSINOPHILS # (AUTO) 0.2 X10'3 (0-0.9); EOSINOPHILS % (AUTO) 3.3 % (0-6); HEMATOCRIT 23.4 % (42.0-52.0); LYMPHOCYTES # (AUTO) 0.8 X10'3 (1.1-4.8); LYMPHOCYTES % (AUTO) 11.8 % (21-51); MEAN CORPUSCULAR HEMOGLOBIN 28.5 PG (27.0-31.0); MEAN CORPUSCULAR HGB CONC 34.1 g/dL (33.0-36.5); MEAN CORPUSCULAR VOLUME 83.7 FL (78-98); MEAN PLATELET VOLUME 7.8 FL (7.4-10.4); MONOCYTES # (AUTO) 0.8 X10'3 (0-0.9); MONOCYTES % (AUTO) 10.4 % (2-12); NEUTROPHILS # (AUTO) 5.3 X10'3 (1.8-7.7); NEUTROPHILS % (AUTO) 73.7 % (42-75); PLATELET COUNT 108 X10'3 (140-440); RED CELL DISTRIBUTION WIDTH 20.4 % (11.5-14.5); WHITE BLOOD COUNT 7.2 X10'3 (4.5-11.0)
[2019-10-19 20:22] LABS: PARTIAL THROMBOPLASTIN TIME 29 SECONDS (22-32)
[2019-10-19 20:23] LABS: ALANINE AMINOTRANSFERASE 11 U/L (12-78); ALBUMIN 2.4 G/DL (3.4-5.0); ALBUMIN/GLOBULIN RATIO 0.9 (1.1-1.5); ALKALINE PHOSPHATASE 66 IU/L (46-116); ANION GAP 14 (8-16); ASPARTATE AMINO TRANSFERASE 27 U/L (10-37); BILIRUBIN,TOTAL 0.6 MG/DL (0.1-1.0); BLOOD UREA NITROGEN 80 MG/DL (7-18); BUN/CREATININE RATIO 11.4 (5.4-32.0); CALCIUM 8.8 MG/DL (8.5-10.1); CHLORIDE 106 MMOL/L (99-107); CREATININE 7.02 MG/DL (0.60-1.10); GLUCOSE 130 MG/DL (70-104); POTASSIUM 3.8 MMOL/L (3.5-5.1); SODIUM 140 MMOL/L (135-145); TOTAL CARBON DIOXIDE 20.1 MMOL/L (24-32); TOTAL PROTEIN 5.2 G/DL (6.4-8.2); eGFR 8 ML/MIN
[2019-10-19 20:48] LABS: ANISOCYTOSIS 3+; PLATELET ESTIMATE DECREASED; SCHISTOCYTES 1+
[2019-10-19] MEDS ORDERED: clopidogrel 300mg tablet PO ONE (21:05)
[2019-10-19] MEDS: Melatonin 3mg tablet PO SCH (21:41)
[2019-10-19] MEDS: gabapentin 400mg capsule PO SCH (21:41)
[2019-10-19] MEDS: HYDROcodone/acetaminophen 10/325mg tab PO PRN (21:42)
--- NOTE | 2019-10-19 23:04 | NUR ---
1800 RECEIVED REPORT FROM ANAT KING AND ASSUMED PATIENT CARE. 183 ANAT TOLD ME PATIENT WAS EXHIBITING SIGNS OF STROKE INCLUDING RIGHT SIDE FACIAL DROOP, RIGHT SIDE WEAKNESS AND INCREASED SLURRED SPEECH. I WAS UNABLE TO ASSESS PATIENT PRIOR TO THIS REPORT BUT I WAS TOLD PATIENT HAD BASELINE RIGHT SIDE WEAKNESS FROM PRIOR CVA. BOTH ANAT KING AND THE PATIENT REPORTS THIS LOOKED WORSE. STROKE ALERT CALLED BY DORITA KING. NOTIFIED. [address] 1944 TELE NEURO CONSULTATION INITIATED. RECOMMENDATIONS CALLED TO DR. MO. ORDERED ADDITIONAL HEAD IMAGING FOR AM.
[2019-10-20 02:00] VITALS: BP 162/88
[2019-10-20] MEDS: VANCOMYCIN LEVEL IV SCH (03:00)
[2019-10-20 06:00] VITALS: BP 161/95
--- NOTE | 2019-10-20 06:17 | NUR ---
REPORT GIVEN TO MARI KING
[2019-10-20 06:22] LABS: BASOPHILS # (AUTO) 0.1 X10'3 (0-0.2); BASOPHILS % (AUTO) 0.9 % (0-1); EOSINOPHILS # (AUTO) 0.3 X10'3 (0-0.9); HEMOGLOBIN 7.2 g/dl (14.0-17.9); LYMPHOCYTES % (AUTO) 15.4 % (21-51); MEAN CORPUSCULAR HGB CONC 33.9 g/dL (33.0-36.5); MEAN CORPUSCULAR VOLUME 82.6 FL (78-98); MONOCYTES # (AUTO) 0.8 X10'3 (0-0.9); MONOCYTES % (AUTO) 12.6 % (2-12); NEUTROPHILS # (AUTO) 4.5 X10'3 (1.8-7.7); NEUTROPHILS % (AUTO) 67.1 % (42-75); PLATELET COUNT 100 X10'3 (140-440); RED BLOOD COUNT 2.58 X10'6 (4.70-6.10); RED CELL DISTRIBUTION WIDTH 20.4 % (11.5-14.5); WHITE BLOOD COUNT 6.7 X10'3 (4.5-11.0)
[2019-10-20 06:35] LABS: HEMATOCRIT 21.3 % (42.0-52.0)
[2019-10-20 06:37] LABS: ALANINE AMINOTRANSFERASE 10 U/L (12-78); ALBUMIN 2.2 G/DL (3.4-5.0); ALBUMIN/GLOBULIN RATIO 0.8 (1.1-1.5); ALKALINE PHOSPHATASE 59 IU/L (46-116); ANION GAP 16 (8-16); ASPARTATE AMINO TRANSFERASE 27 U/L (10-37); BILIRUBIN,TOTAL 0.5 MG/DL (0.1-1.0); BLOOD UREA NITROGEN 83 MG/DL (7-18); BUN/CREATININE RATIO 11.2 (5.4-32.0); CALCIUM 8.7 MG/DL (8.5-10.1); CHLORIDE 107 MMOL/L (99-107); CHOLESTEROL 155 MG/DL (0-200); CREATININE 7.44 MG/DL (0.60-1.10); GLUCOSE 131 MG/DL (70-104); HDL CHOLESTEROL 39 MG/DL (35-60); LDL CHOLESTEROL 92 MG/DL (50-100); MAGNESIUM 1.7 MG/DL (1.5-2.4); POTASSIUM 3.8 MMOL/L (3.5-5.1); SODIUM 141 MMOL/L (135-145); TOTAL CARBON DIOXIDE 17.9 MMOL/L (24-32); TOTAL PROTEIN 4.9 G/DL (6.4-8.2); TRIGLYCERIDES 117 MG/DL (20-135); VANCOMYCIN,TROUGH 16.7 UG/ML (6.0-14.0); eGFR 7 ML/MIN
--- NOTE | 2019-10-20 06:48 | NUR ---
PAGER ID: [phone] MESSAGE: [id number]. pt. Mack Barrientos. H&H came back at 7.2 and 21.3 this morning. please advise. CHRISTINE Greenberg [phone]
--- NOTE | 2019-10-20 06:48 | NUR ---
Patient in room ORTHO 4016. I have received report from CHRISTINE Leal and had the opportunity to ask questions and assume patient care.
[2019-10-20] MEDS ORDERED: clopidogrel 75mg tablet PO SCH (08:00)
[2019-10-20] MEDS: K and/or MAG REPLACEMENT MC SCH ×2 (08:00→20:00)
[2019-10-20] MEDS ORDERED: aspirin 325mg tablet PO SCH (08:30)
[2019-10-20] MEDS: docusate sod 100mg capsule PO SCH ×2 (08:37→20:31)
[2019-10-20] MEDS: duloxetine 30mg CAPSULE.DR PO SCH (08:37)
[2019-10-20] MEDS: amLODIPine 5mg tablet PO SCH (08:37)
[2019-10-20] MEDS: famotidine 20mg tablet PO SCH ×2 (08:37→20:25)
[2019-10-20] MEDS: HYDROcodone/acetaminophen 10/325mg tab PO PRN ×3 (08:38→20:31)
[2019-10-20] MEDS: lactobacillus rhamnosus 10,000 MMU CELLS/CAPSULE PO SCH ×2 (08:39→20:25)
[2019-10-20] MEDS: finasteride 5mg tablet PO SCH (08:39)
[2019-10-20] MEDS: cloNIDine 0.1 mg tablet PO SCH ×3 (08:39→20:27)
[2019-10-20] MEDS: aspirin 81mg tablet.DR PO SCH (08:39)
[2019-10-20] MEDS: FLUoxetine 20mg capsule PO SCH ×2 (08:39→20:31)
[2019-10-20] MEDS: tamsulosin 0.4mg capsule PO SCH (08:39)
[2019-10-20] MEDS: atorvastatin 20mg tablet PO SCH (08:39)
[2019-10-20] MEDS: BYSTOLIC 5 MG PO SCH (08:46)
[2019-10-20 10:00] VITALS: BP 170/84
[2019-10-20 10:09] LABS: ANISOCYTOSIS 3+; PLATELET ESTIMATE DECREASED
[2019-10-20 10:10] LABS: MICROCYTOSIS 1+; SCHISTOCYTES 1+
[2019-10-20 10:11] LABS: POLYCHROMASIA FEW
[2019-10-20 14:00] VITALS: BP 176/105
[2019-10-20] MEDS: hydrALAZINE 20mg/ml inj. IV PRN (14:40)
[2019-10-20] MEDS: HYDROmorphone 2mg tablet PO PRN (15:48)
[2019-10-20 18:00] VITALS: BP 186/97
--- NOTE | 2019-10-20 18:22 | NUR ---
Problems reprioritized. Patient report given, questions answered & plan of care reviewed with CHRISTINE Segal.
--- NOTE | 2019-10-20 18:44 | NUR ---
received report from CHRISTINE Matias
[2019-10-20] MEDS: gabapentin 400mg capsule PO SCH (20:25)
[2019-10-20] MEDS: Melatonin 3mg tablet PO SCH (20:34)
[2019-10-20 22:00] VITALS: BP 168/90
[2019-10-21] VITALS (7 sets, daily range): BP systolic 133–183; BP diastolic 79–110
[2019-10-21] MEDS: VANCOMYCIN LEVEL IV SCH (03:00)
[2019-10-21] MEDS: HYDROmorphone 2mg tablet PO PRN ×2 (03:07→14:56)
[2019-10-21] MEDS: hydrALAZINE 20mg/ml inj. IV PRN (03:21)
[2019-10-21 04:33] LABS: BASOPHILS % (AUTO) 0.7 % (0-1); EOSINOPHILS # (AUTO) 0.2 X10'3 (0-0.9); EOSINOPHILS % (AUTO) 4.1 % (0-6); HEMOGLOBIN 7.3 g/dl (14.0-17.9); LYMPHOCYTES # (AUTO) 0.9 X10'3 (1.1-4.8); LYMPHOCYTES % (AUTO) 15.5 % (21-51); MEAN CORPUSCULAR HEMOGLOBIN 28.4 PG (27.0-31.0); MEAN CORPUSCULAR HGB CONC 33.8 g/dL (33.0-36.5); MEAN PLATELET VOLUME 8.3 FL (7.4-10.4); MONOCYTES # (AUTO) 0.7 X10'3 (0-0.9); MONOCYTES % (AUTO) 10.9 % (2-12); NEUTROPHILS # (AUTO) 4.2 X10'3 (1.8-7.7); NEUTROPHILS % (AUTO) 68.8 % (42-75); PLATELET COUNT 96 X10'3 (140-440); RED BLOOD COUNT 2.57 X10'6 (4.70-6.10); RED CELL DISTRIBUTION WIDTH 20.9 % (11.5-14.5); WHITE BLOOD COUNT 6.1 X10'3 (4.5-11.0)
[2019-10-21 04:39] LABS: HEMATOCRIT 21.6 % (42.0-52.0)
[2019-10-21 04:45] LABS: ALANINE AMINOTRANSFERASE 9 U/L (12-78); ALBUMIN 2.2 G/DL (3.4-5.0); ALBUMIN/GLOBULIN RATIO 0.8 (1.1-1.5); ALKALINE PHOSPHATASE 57 IU/L (46-116); ANION GAP 16 (8-16); ASPARTATE AMINO TRANSFERASE 24 U/L (10-37); BILIRUBIN,TOTAL 0.6 MG/DL (0.1-1.0); BLOOD UREA NITROGEN 87 MG/DL (7-18); BUN/CREATININE RATIO 10.8 (5.4-32.0); CALCIUM 8.6 MG/DL (8.5-10.1); CHLORIDE 106 MMOL/L (99-107); CREATININE 8.06 MG/DL (0.60-1.10); GLUCOSE 138 MG/DL (70-104); MAGNESIUM 1.7 MG/DL (1.5-2.4); PHOSPHORUS 7.1 MG/DL (2.3-4.5); POTASSIUM 3.8 MMOL/L (3.5-5.1); SODIUM 140 MMOL/L (135-145); TOTAL CARBON DIOXIDE 17.8 MMOL/L (24-32); TOTAL PROTEIN 4.8 G/DL (6.4-8.2); VANCOMYCIN,TROUGH 14.6 UG/ML (6.0-14.0); eGFR 7 ML/MIN
[2019-10-21] MEDS: HYDROcodone/acetaminophen 10/325mg tab PO PRN ×3 (05:39→20:39)
--- NOTE | 2019-10-21 05:48 | NUR ---
PAGER ID: [phone] MESSAGE: [place] pt 416 Mack [place] has critical Hgb 21.6. [phone]
--- NOTE | 2019-10-21 05:51 | NUR ---
PAGER ID: [phone] MESSAGE: [place] pt 416 Mack Barrientos has critical Hct 21.6. disregard last page. thanks. [phone]
[2019-10-21 06:07] LABS: ANISOCYTOSIS 3+; PLATELET ESTIMATE DECREASED
[2019-10-21 06:08] LABS: POLYCHROMASIA FEW
--- NOTE | 2019-10-21 06:30 | NUR ---
Patient in room ORTHO 4016. I have received report from Luzma KING and had the opportunity to ask questions and assume patient care.
--- NOTE | 2019-10-21 06:36 | NUR ---
gave report to CHRISTINE Matias
--- NOTE | 2019-10-21 06:59 | NUR ---
I let Dr. Berry know about patient increase in creatinine and if it is okay to still give vanco, he said yes.
[2019-10-21] MEDS ORDERED: vancomycin/NS 1 GM ADD-VANTAGE 250 ML IV ONE (07:00)
[2019-10-21] MEDS: amLODIPine 5mg tablet PO SCH (07:56)
[2019-10-21] MEDS: atorvastatin 20mg tablet PO SCH (07:57)
[2019-10-21] MEDS: duloxetine 30mg CAPSULE.DR PO SCH (07:57)
[2019-10-21] MEDS: lactobacillus rhamnosus 10,000 MMU CELLS/CAPSULE PO SCH ×2 (07:57→20:39)
[2019-10-21] MEDS: cloNIDine 0.1 mg tablet PO SCH ×3 (07:57→20:39)
[2019-10-21] MEDS: tamsulosin 0.4mg capsule PO SCH (07:57)
[2019-10-21] MEDS: aspirin 81mg tablet.DR PO SCH (07:57)
[2019-10-21] MEDS: famotidine 20mg tablet PO SCH ×2 (07:57→20:39)
[2019-10-21] MEDS: docusate sod 100mg capsule PO SCH ×2 (07:57→20:00)
[2019-10-21] MEDS: FLUoxetine 20mg capsule PO SCH ×2 (07:57→20:39)
[2019-10-21] MEDS: K and/or MAG REPLACEMENT MC SCH ×2 (08:00→20:00)
[2019-10-21] MEDS: finasteride 5mg tablet PO SCH (08:01)
[2019-10-21] MEDS: BYSTOLIC 5 MG PO SCH (08:26)
--- NOTE | 2019-10-21 11:26 | NUR ---
Student documentation: I have reviewed all interventions, assessments performed and documented by Edilberto Jade. Student Medication Administration: For this medication-pass time frame, all medication were reviewed, dispensed, administered and documented per hospital policy by Edilberto Jade.
--- NOTE | 2019-10-21 18:00 | NUR ---
Patient in room ORTHO 4016. I have received report from CHRISTINE Matias and had the opportunity to ask questions and assume patient care.
--- NOTE | 2019-10-21 18:18 | NUR ---
Problems reprioritized. Patient report given, questions answered & plan of care reviewed with Carol Ann KING.
[2019-10-21] MEDS: gabapentin 400mg capsule PO SCH (20:38)
[2019-10-21] MEDS: Melatonin 3mg tablet PO SCH (20:39)
[2019-10-22] MEDS: VANCOMYCIN LEVEL IV SCH (03:00)
[2019-10-22] MEDS: HYDROmorphone 2mg tablet PO PRN ×2 (04:22→21:44)
[2019-10-22 05:02] LABS: BASOPHILS % (AUTO) 0.8 % (0-1); EOSINOPHILS # (AUTO) 0.3 X10'3 (0-0.9); EOSINOPHILS % (AUTO) 4.3 % (0-6); HEMOGLOBIN 7.1 g/dl (14.0-17.9); LYMPHOCYTES # (AUTO) 0.8 X10'3 (1.1-4.8); MEAN CORPUSCULAR HEMOGLOBIN 28.6 PG (27.0-31.0); MEAN CORPUSCULAR HGB CONC 33.9 g/dL (33.0-36.5); MEAN CORPUSCULAR VOLUME 84.4 FL (78-98); MEAN PLATELET VOLUME 8.1 FL (7.4-10.4); MONOCYTES # (AUTO) 0.6 X10'3 (0-0.9); MONOCYTES % (AUTO) 9.7 % (2-12); NEUTROPHILS # (AUTO) 4.2 X10'3 (1.8-7.7); NEUTROPHILS % (AUTO) 72.2 % (42-75); PLATELET COUNT 92 X10'3 (140-440); RED BLOOD COUNT 2.49 X10'6 (4.70-6.10); RED CELL DISTRIBUTION WIDTH 22.4 % (11.5-14.5); WHITE BLOOD COUNT 5.9 X10'3 (4.5-11.0)
[2019-10-22 05:19] LABS: PARTIAL THROMBOPLASTIN TIME 27 SECONDS (22-32)
[2019-10-22 05:23] LABS: ALANINE AMINOTRANSFERASE 9 U/L (12-78); ALBUMIN 2.3 G/DL (3.4-5.0); ALBUMIN/GLOBULIN RATIO 0.9 (1.1-1.5); ALKALINE PHOSPHATASE 59 IU/L (46-116); ANION GAP 18 (8-16); ASPARTATE AMINO TRANSFERASE 26 U/L (10-37); BILIRUBIN,TOTAL 0.6 MG/DL (0.1-1.0); BLOOD UREA NITROGEN 94 MG/DL (7-18); BUN/CREATININE RATIO 10.7 (5.4-32.0); CALCIUM 8.4 MG/DL (8.5-10.1); CHLORIDE 107 MMOL/L (99-107); CREATININE 8.82 MG/DL (0.60-1.10); GLUCOSE 140 MG/DL (70-104); POTASSIUM 4.2 MMOL/L (3.5-5.1); SODIUM 142 MMOL/L (135-145); TOTAL CARBON DIOXIDE 16.6 MMOL/L (24-32); VANCOMYCIN,TROUGH 19.3 UG/ML (6.0-14.0); eGFR 6 ML/MIN
[2019-10-22 06:10] VITALS: BP 174/103
--- NOTE | 2019-10-22 06:34 | NUR ---
Patient in room ORTHO 4016. I have received report from Carol Ann KING and had the opportunity to ask questions and assume patient care.
--- NOTE | 2019-10-22 06:36 | NUR ---
Problems reprioritized. Patient report given, questions answered & plan of care reviewed with CHRISTINE Matias.
[2019-10-22 07:25] LABS: PLATELET ESTIMATE DECREASED
[2019-10-22 07:26] LABS: ANISOCYTOSIS 3+; HYPOCHROMASIA 1+; POLYCHROMASIA 1+; SCHISTOCYTES 1+
[2019-10-22 07:27] LABS: ACANTHOCYTES FEW
[2019-10-22] MEDS ORDERED: heparin 1,000 units/ml 10ml inj HE ONE ×2 (08:00)
[2019-10-22] MEDS ORDERED: heparin 1,000unit/ml 10ml vial 10 ML IV ONE (08:00)
[2019-10-22] MEDS ORDERED: epoetin 20,000 units/ml inj IV ONE (08:00)
[2019-10-22] MEDS: K and/or MAG REPLACEMENT MC SCH ×2 (08:00→20:00)
[2019-10-22] MEDS ORDERED: normal saline 1000ml 250 ML IV PRN (08:00)
[2019-10-22] MEDS: cloNIDine 0.1 mg tablet PO SCH ×3 (08:25→21:44)
[2019-10-22] MEDS: lactobacillus rhamnosus 10,000 MMU CELLS/CAPSULE PO SCH ×2 (08:25→21:44)
[2019-10-22] MEDS: BYSTOLIC 5 MG PO SCH (08:25)
[2019-10-22] MEDS: FLUoxetine 20mg capsule PO SCH ×2 (08:25→21:45)
[2019-10-22] MEDS: famotidine 20mg tablet PO SCH ×2 (08:25→21:44)
[2019-10-22] MEDS: finasteride 5mg tablet PO SCH (08:25)
[2019-10-22] MEDS: amLODIPine 5mg tablet PO SCH (08:25)
[2019-10-22] MEDS: docusate sod 100mg capsule PO SCH ×2 (08:25→20:00)
[2019-10-22] MEDS: duloxetine 30mg CAPSULE.DR PO SCH (08:26)
[2019-10-22] MEDS: atorvastatin 20mg tablet PO SCH (08:26)
[2019-10-22] MEDS: tamsulosin 0.4mg capsule PO SCH (08:26)
[2019-10-22] MEDS ORDERED: LIDOcaine 1%/PF 5ML 10 MG/ML VIAL ONE ×2 (09:20→09:50)
[2019-10-22] MEDS ORDERED: heparin 1,000unit/ml 10ml vial 10 ML ONE (09:20)
[2019-10-22] MEDS ORDERED: fentaNYL/PF 50MCG/1 ML 2ML syringe ONE (09:20)
[2019-10-22] MEDS: HYDROcodone/acetaminophen 10/325mg tab PO PRN ×2 (10:29→14:32)
[2019-10-22] MEDS ORDERED: apixaban 5mg tablet PO ONE (11:00)
[2019-10-22 15:29] VITALS: BP 131/70
--- NOTE | 2019-10-22 16:00 | NUR ---
Patient stated she noticed right lip swelling. Patient not slurring paitent still has baseline rsw. Patient denies any new numbness or tingling. Patient is oriented. I let Dr. mcdonald know about this he is aware, and maybe from the [place] the patient is on. Patient started on eliquis today for right arm dvt. Dr. Mcdonald didn't recommend another scan.
[2019-10-22 18:00] VITALS: BP 123/66
--- NOTE | 2019-10-22 18:00 | NUR ---
Patient in room ORTHO 4016. I have received report from CHRISTINE Matias and had the opportunity to ask questions and assume patient care.
--- NOTE | 2019-10-22 18:11 | NUR ---
Problems reprioritized. Patient report given, questions answered & plan of care reviewed with Carol Ann IKNG.
--- NOTE | 2019-10-22 19:05 | NUR ---
Patient was found on the floor around 1900 tonight; he was on both knees, between the bathroom and bed. He did not yell out but his iv was alarming and another nurse discovered him on the floor. He was assisted up from the floor and helped into a chair and then into the bed. He did not have any new bruises or open areas to his skin and no bleeding at his surgical site to the right hip. His push pulls and appearance of his legs did not look unchanged from the prior night per his nurse, Carol Ann. Vitals were stable once we got him into the bed. He had gotten out of bed on his own after dialysis was done and he verbalized that he was not dizzy or light headed but his legs just gave away. He had walked into the bathroom without a walker and was walking back to bed when his legs gave out from him.
--- NOTE | 2019-10-22 19:22 | NUR ---
I had paged Dr. Milian regarding finding the patient falling on the floor after shift change. His vitals where stable and he had no open area to the skin, and his dressing to his hip incision is CDI and without any excessive edema. She returned my page and I informed her that I was trying to reach the oncall Orthopedist regarding new xray request; since the patient was c/o of extreme pain to his operative R hip.
[2019-10-22] MEDS ORDERED: apixaban 5mg tablet PO SCH (20:00)
--- NOTE | 2019-10-22 20:13 | NUR ---
Dr. Hand called back and gave me an order for two view xray of the right hip status post fall. I had attempted to call the environmental services worker Orthopedist after his initial fall and around 2009 I got a call back from [facility].
--- NOTE | 2019-10-22 20:55 | NUR ---
I called the pt's spouse, [place] regarding the patient falling onto the floor earlier in the shift. She verbalized a concern regarding her 's lips swelling up today after starting the medicine; Elequist. I informed her that he was getting a hip xray tonight and I would call the Md regarding concern about swollen lips and possible allergic reaction. I also informed her that we are going to place a TABS alarm on to remind the patient not to get oob on his own.
[2019-10-22] MEDS: gabapentin 400mg capsule PO SCH (21:44)
[2019-10-22] MEDS: Melatonin 3mg tablet PO SCH (21:47)
[2019-10-22 22:00] VITALS: BP 171/82
--- NOTE | 2019-10-22 22:15 | NUR ---
I paged Dr. Milian regarding possible allergic reaction to Elequist today with pt's lips being swollen; she said to hold tonight's dose and to have the day doctor address the medicine and change it if needed.
[2019-10-23] MEDS: VANCOMYCIN LEVEL IV SCH (03:00)
[2019-10-23] MEDS: HYDROcodone/acetaminophen 10/325mg tab PO PRN ×2 (03:28→14:36)
[2019-10-23 06:10] VITALS: BP 148/90
--- NOTE | 2019-10-23 06:35 | NUR ---
Problems reprioritized. Patient report given, questions answered & plan of care reviewed with CHRISTINE Matias.
--- NOTE | 2019-10-23 06:38 | NUR ---
Patient in room ORTHO 4016. I have received report from Carol Ann KING and had the opportunity to ask questions and assume patient care.
[2019-10-23 06:57] LABS: BASOPHILS % (AUTO) 0.6 % (0-1); EOSINOPHILS # (AUTO) 0.2 X10'3 (0-0.9); EOSINOPHILS % (AUTO) 2.8 % (0-6); HEMOGLOBIN 7.1 g/dl (14.0-17.9); LYMPHOCYTES # (AUTO) 0.8 X10'3 (1.1-4.8); MEAN CORPUSCULAR HEMOGLOBIN 29.2 PG (27.0-31.0); MEAN CORPUSCULAR HGB CONC 34.6 g/dL (33.0-36.5); MEAN CORPUSCULAR VOLUME 84.2 FL (78-98); MEAN PLATELET VOLUME 8.5 FL (7.4-10.4); MONOCYTES # (AUTO) 0.5 X10'3 (0-0.9); MONOCYTES % (AUTO) 9.5 % (2-12); NEUTROPHILS # (AUTO) 4.2 X10'3 (1.8-7.7); NEUTROPHILS % (AUTO) 73.1 % (42-75); PLATELET COUNT 85 X10'3 (140-440); RED BLOOD COUNT 2.42 X10'6 (4.70-6.10); RED CELL DISTRIBUTION WIDTH 25.3 % (11.5-14.5); WHITE BLOOD COUNT 5.8 X10'3 (4.5-11.0)
[2019-10-23 07:01] LABS: HEMATOCRIT 20.4 % (42.0-52.0)
[2019-10-23 07:06] LABS: ALANINE AMINOTRANSFERASE 10 U/L (12-78); ALBUMIN 2.4 G/DL (3.4-5.0); ALBUMIN/GLOBULIN RATIO 0.9 (1.1-1.5); ALKALINE PHOSPHATASE 60 IU/L (46-116); ANION GAP 15 (8-16); ASPARTATE AMINO TRANSFERASE 25 U/L (10-37); BILIRUBIN,TOTAL 0.6 MG/DL (0.1-1.0); BLOOD UREA NITROGEN 81 MG/DL (7-18); BUN/CREATININE RATIO 10.1 (5.4-32.0); CHLORIDE 106 MMOL/L (99-107); CREATININE 8.03 MG/DL (0.60-1.10); GLUCOSE 117 MG/DL (70-104); MAGNESIUM 1.8 MG/DL (1.5-2.4); PHOSPHORUS 6.7 MG/DL (2.3-4.5); POTASSIUM 4.2 MMOL/L (3.5-5.1); SODIUM 141 MMOL/L (135-145); TOTAL CARBON DIOXIDE 20.4 MMOL/L (24-32); TOTAL PROTEIN 5.1 G/DL (6.4-8.2); VANCOMYCIN,RANDOM 18.4 UG/ML; eGFR 7 ML/MIN
--- NOTE | 2019-10-23 07:22 | NUR ---
PAGER ID: [phone] MESSAGE: Dr Ledezma I have to call the critical Hematocrit for Mack Barrientos 20.4, hemoglobin is 7.1, it has been like this for days. Also his Eliquis was put on hold last night for possible allergic reaction. Polly [id number]
[2019-10-23 07:54] LABS: PLATELET ESTIMATE DECREASED; POLYCHROMASIA 2+
[2019-10-23 07:55] LABS: ANISOCYTOSIS 3+; HYPOCHROMASIA 2+; ROULEAUX 1+; SCHISTOCYTES 1+
[2019-10-23] MEDS: K and/or MAG REPLACEMENT MC SCH ×2 (08:00→20:00)
[2019-10-23] MEDS: FLUoxetine 20mg capsule PO SCH ×2 (08:13→20:28)
[2019-10-23] MEDS: cloNIDine 0.1 mg tablet PO SCH ×3 (08:13→20:28)
[2019-10-23] MEDS: famotidine 20mg tablet PO SCH ×2 (08:13→20:27)
[2019-10-23] MEDS: lactobacillus rhamnosus 10,000 MMU CELLS/CAPSULE PO SCH ×2 (08:14→20:27)
[2019-10-23] MEDS: amLODIPine 5mg tablet PO SCH (08:14)
[2019-10-23] MEDS: duloxetine 30mg CAPSULE.DR PO SCH (08:14)
[2019-10-23] MEDS: docusate sod 100mg capsule PO SCH ×2 (08:14→20:27)
[2019-10-23] MEDS: tamsulosin 0.4mg capsule PO SCH (08:14)
[2019-10-23] MEDS: BYSTOLIC 5 MG PO SCH (08:15)
[2019-10-23] MEDS: atorvastatin 20mg tablet PO SCH (08:15)
[2019-10-23] MEDS: finasteride 5mg tablet PO SCH (08:16)
[2019-10-23] MEDS ORDERED: normal saline 1000ml 250 ML IV PRN (09:33)
[2019-10-23] MEDS ORDERED: heparin 1,000unit/ml 10ml vial 10 ML IV ONE (09:33)
[2019-10-23] MEDS ORDERED: epoetin 20,000 units/ml inj IV ONE (09:35)
[2019-10-23] MEDS ORDERED: heparin 1,000 units/ml 10ml inj HE ONE ×2 (09:40)
[2019-10-23 10:00] VITALS: BP 185/106
[2019-10-23] MEDS: HYDROmorphone 2mg tablet PO PRN ×2 (10:07→22:15)
[2019-10-23] MEDS ORDERED: bisacodyl 10mg suppository rectal RC PRN (15:30)
[2019-10-23] MEDS ORDERED: PEG 3350/Na sulf,bicarb,Cl/KCl oral sol 4 liter bottle PO ONE (16:15)
[2019-10-23 18:00] VITALS: BP 148/81
--- NOTE | 2019-10-23 18:02 | NUR ---
I paged Dr. Ledezma patient is getting more confused and trying to get out of be he pulled his picc line out as well, waiting for call back,. Addendum: 10/23/19 at 1854 by Yari Chou RN DR. Ledezma called back ordered tele/neuro stat, ammonia stat, and sitter. I called Sherita as well and she ordered lactulose now and daily for BM, I told her about patient increasing confusion and pulling picc line out, and what Dr. Ledezma ordered. Patient was placed on tele earlier.
[2019-10-23] MEDS ORDERED: lactulose 20gm/30ml cup PO PRN (18:30)
[2019-10-23] MEDS ORDERED: lactulose 20gm/30ml cup PO ONE (18:30)
--- NOTE | 2019-10-23 18:55 | NUR ---
patient report given to Carol Ann KING
--- NOTE | 2019-10-23 19:00 | NUR ---
Ashia LAWTON called back regarding sitter request and said he absolutely had to have a sitter or be at the nurse's station so he won't pull out his HD catheter. I informed day supervisor powdered sugar of the order.
--- NOTE | 2019-10-23 19:10 | NUR ---
I made arrangements for teleneuro evaluation per the order of Dr. Ledezma for increased confusion and possible changes on his mri of the brain that was done today compared to previous mri of brain done this admit. Evaluation was done by neurologist and he said that the findings on the mri were insignificant and he agrees with the other doctors that patient needs anticoagulant. Neurologist said he would put his recommendations in the computer and if the medical doctor had any questions that they could call him.
--- NOTE | 2019-10-23 19:11 | NUR ---
Patient in room ORTHO 4016. I have received report from Polly KING and had the opportunity to ask questions and assume patient care.
[2019-10-23] MEDS: gabapentin 400mg capsule PO SCH (20:27)
[2019-10-23] MEDS: Melatonin 3mg tablet PO SCH (20:29)
[2019-10-23] MEDS ORDERED: warfarin 5mg tablet PO SCH (21:00)
[2019-10-23 22:00] VITALS: BP 167/88
[2019-10-24] VITALS (10 sets, daily range): BP systolic 123–180; BP diastolic 64–113
[2019-10-24] MEDS: VANCOMYCIN LEVEL IV SCH (03:00)
[2019-10-24 06:18] LABS: OCCULT BLOOD STOOL NEGATIVE (Neg)
[2019-10-24] MEDS ORDERED: MIDAZolam 5mg/5ml vial ONE (06:37)
[2019-10-24] MEDS ORDERED: fentaNYL/PF 50MCG/1 ML 2ML syringe ONE (06:37)
[2019-10-24] MEDS ORDERED: LIDOcaine Viscous 15ml cup ONE (06:38)
--- NOTE | 2019-10-24 06:49 | NUR ---
Problems reprioritized. Patient report given, questions answered & plan of care reviewed with CHRISTNIE Pennington.
[2019-10-24] MEDS: cloNIDine 0.1 mg tablet PO SCH ×2 (08:00→21:49)
[2019-10-24] MEDS: K and/or MAG REPLACEMENT MC SCH ×2 (10:30→20:00)
[2019-10-24 11:25] LABS: BASOPHILS % (AUTO) 0.8 % (0-1); EOSINOPHILS # (AUTO) 0.2 X10'3 (0-0.9); EOSINOPHILS % (AUTO) 2.6 % (0-6); HEMATOCRIT 22.5 % (42.0-52.0); HEMOGLOBIN 7.6 g/dl (14.0-17.9); LYMPHOCYTES # (AUTO) 0.8 X10'3 (1.1-4.8); LYMPHOCYTES % (AUTO) 12.4 % (21-51); MEAN CORPUSCULAR HEMOGLOBIN 28.8 PG (27.0-31.0); MEAN CORPUSCULAR HGB CONC 33.7 g/dL (33.0-36.5); MEAN CORPUSCULAR VOLUME 85.4 FL (78-98); MEAN PLATELET VOLUME 8.4 FL (7.4-10.4); MONOCYTES # (AUTO) 0.8 X10'3 (0-0.9); MONOCYTES % (AUTO) 12.5 % (2-12); NEUTROPHILS # (AUTO) 4.4 X10'3 (1.8-7.7); NEUTROPHILS % (AUTO) 71.7 % (42-75); PLATELET COUNT 89 X10'3 (140-440); RED BLOOD COUNT 2.63 X10'6 (4.70-6.10); RED CELL DISTRIBUTION WIDTH 25.2 % (11.5-14.5); WHITE BLOOD COUNT 6.2 X10'3 (4.5-11.0)
[2019-10-24 11:40] LABS: ALANINE AMINOTRANSFERASE 9 U/L (12-78); ALBUMIN 2.5 G/DL (3.4-5.0); ALBUMIN/GLOBULIN RATIO 0.9 (1.1-1.5); ALKALINE PHOSPHATASE 62 IU/L (46-116); ANION GAP 15 (8-16); ASPARTATE AMINO TRANSFERASE 27 U/L (10-37); BILIRUBIN,TOTAL 0.7 MG/DL (0.1-1.0); BLOOD UREA NITROGEN 57 MG/DL (7-18); BUN/CREATININE RATIO 7.9 (5.4-32.0); CALCIUM 8.4 MG/DL (8.5-10.1); CHLORIDE 104 MMOL/L (99-107); CREATININE 7.26 MG/DL (0.60-1.10); GLUCOSE 123 MG/DL (70-104); MAGNESIUM 1.9 MG/DL (1.5-2.4); POTASSIUM 4.2 MMOL/L (3.5-5.1); SODIUM 142 MMOL/L (135-145); TOTAL CARBON DIOXIDE 23.2 MMOL/L (24-32); TOTAL PROTEIN 5.4 G/DL (6.4-8.2); eGFR 8 ML/MIN
[2019-10-24 12:10] LABS: ANISOCYTOSIS 3+; HYPOCHROMASIA 1+; PLATELET ESTIMATE DECREASED; POLYCHROMASIA 2+; ROULEAUX 1+; SCHISTOCYTES 1+
[2019-10-24] MEDS ORDERED: epoetin 20,000 units/ml inj IV ONE (13:40)
[2019-10-24] MEDS ORDERED: normal saline 1000ml 250 ML IV PRN (13:40)
[2019-10-24] MEDS ORDERED: heparin 1,000unit/ml 10ml vial 10 ML IV ONE (13:40)
[2019-10-24] MEDS ORDERED: heparin 1,000 units/ml 10ml inj HE ONE ×2 (13:45)
[2019-10-24] MEDS ORDERED: heparin 10,000 units/1 ML INJ IV PRN (14:05)
[2019-10-24] MEDS ORDERED: heparin 10,000 units/1 ML INJ IV ONE (14:05)
[2019-10-24] MEDS: atorvastatin 20mg tablet PO SCH (16:00)
[2019-10-24] MEDS: lactobacillus rhamnosus 10,000 MMU CELLS/CAPSULE PO SCH ×2 (16:00→20:54)
[2019-10-24] MEDS: tamsulosin 0.4mg capsule PO SCH (16:00)
[2019-10-24] MEDS: duloxetine 30mg CAPSULE.DR PO SCH (16:00)
[2019-10-24] MEDS: BYSTOLIC 5 MG PO SCH (16:01)
[2019-10-24] MEDS: finasteride 5mg tablet PO SCH (16:02)
[2019-10-24] MEDS: famotidine 20mg tablet PO SCH ×2 (16:05→20:54)
[2019-10-24] MEDS: docusate sod 100mg capsule PO SCH ×2 (16:05→20:00)
[2019-10-24] MEDS: FLUoxetine 20mg capsule PO SCH ×2 (16:06→20:55)
[2019-10-24] MEDS: amLODIPine 5mg tablet PO SCH (17:42)
--- NOTE | 2019-10-24 18:22 | NUR ---
RECEIVED REPORT FROM GAYLE KING AND ASSUMED PATIENT CARE
[2019-10-24] MEDS: heparin 25,000 UNIT/250ml bag 250 ML IV SCH (19:11)
[2019-10-24] MEDS: Melatonin 3mg tablet PO SCH (20:55)
[2019-10-24] MEDS: gabapentin 400mg capsule PO SCH (20:55)
[2019-10-24] MEDS ORDERED: warfarin 5mg tablet PO ONE (21:00)
--- NOTE | 2019-10-24 21:02 | NUR ---
IT WAS REPORTED TO ME BY MAGAZINE WRITER AT CHANGE OF SHIFT AND ALSO JUAN, RECEIVING RN FOR NOC SHIFT, THAT PATIENT WOULD BE HAVING DIALYSIS TONIGHT. IT IS GETTING LATE INTO THE SHIFT I SPOKE TO SEPTEMBER JERED FOR [employer] [facility] WHO DID CONFIRM THERE IS AN ORDER FOR HEMODIALYSIS TONIGHT AND TO CHECK WITH THE ON-CALL DIALYSIS NURSE ABOUT THIS TRTMT. I SPOKE WITH MARY WITH [facility], WHO DID CONFIRM IT HAD BEEN ORDERED BUT HE HAD SPOKEN TO DR. ELLINGTON EARLIER AND DUE TO 4 PATIENTS SCHEDULED FOR DIALYSIS THIS EVENING, MR SEBASTIAN WILL RECEIVE DIALYSIS TOMORROW 10/25. DR ELLINGTON IS AWARE OF THIS PER MARY
[2019-10-24] MEDS: HYDROmorphone 2mg tablet PO PRN (21:03)
[2019-10-24] MEDS ORDERED: cloNIDine 0.1 mg tablet PO ONE (21:55)
[2019-10-25 02:00] VITALS: BP 166/93
[2019-10-25 02:11] LABS: BASOPHILS % (AUTO) 0.7 % (0-1); EOSINOPHILS # (AUTO) 0.2 X10'3 (0-0.9); EOSINOPHILS % (AUTO) 2.2 % (0-6); HEMOGLOBIN 7.1 g/dl (14.0-17.9); LYMPHOCYTES % (AUTO) 14.7 % (21-51); MEAN CORPUSCULAR HEMOGLOBIN 28.6 PG (27.0-31.0); MEAN CORPUSCULAR HGB CONC 33.5 g/dL (33.0-36.5); MEAN CORPUSCULAR VOLUME 85.4 FL (78-98); MEAN PLATELET VOLUME 8.3 FL (7.4-10.4); MONOCYTES # (AUTO) 0.9 X10'3 (0-0.9); MONOCYTES % (AUTO) 12.7 % (2-12); NEUTROPHILS % (AUTO) 69.7 % (42-75); PLATELET COUNT 94 X10'3 (140-440); RED BLOOD COUNT 2.49 X10'6 (4.70-6.10); RED CELL DISTRIBUTION WIDTH 24.7 % (11.5-14.5); WHITE BLOOD COUNT 7.1 X10'3 (4.5-11.0)
[2019-10-25 02:23] LABS: HEMATOCRIT 21.2 % (42.0-52.0)
[2019-10-25 02:25] LABS: ALANINE AMINOTRANSFERASE 9 U/L (12-78); ALBUMIN 2.4 G/DL (3.4-5.0); ALBUMIN/GLOBULIN RATIO 0.9 (1.1-1.5); ALKALINE PHOSPHATASE 62 IU/L (46-116); ANION GAP 11 (8-16); ASPARTATE AMINO TRANSFERASE 26 U/L (10-37); BILIRUBIN,TOTAL 0.7 MG/DL (0.1-1.0); BLOOD UREA NITROGEN 64 MG/DL (7-18); BUN/CREATININE RATIO 7.7 (5.4-32.0); CALCIUM 8.3 MG/DL (8.5-10.1); CHLORIDE 104 MMOL/L (99-107); CREATININE 8.35 MG/DL (0.60-1.10); GLUCOSE 122 MG/DL (70-104); MAGNESIUM 1.9 MG/DL (1.5-2.4); PHOSPHORUS 6.3 MG/DL (2.3-4.5); SODIUM 139 MMOL/L (135-145); TOTAL CARBON DIOXIDE 23.7 MMOL/L (24-32); TOTAL PROTEIN 5.2 G/DL (6.4-8.2); eGFR 6 ML/MIN
[2019-10-25] MEDS: heparin 25,000 UNIT/250ml bag 250 ML IV SCH ×3 (02:36→23:00)
[2019-10-25] MEDS: HYDROcodone/acetaminophen 10/325mg tab PO PRN ×3 (02:41→16:51)
[2019-10-25] MEDS: VANCOMYCIN LEVEL IV SCH (03:00)
[2019-10-25 06:00] VITALS: BP 151/85
[2019-10-25 06:17] LABS: LARGE PLATELETS FEW; PLATELET ESTIMATE DECREASED
[2019-10-25 06:18] LABS: ANISOCYTOSIS 3+; TARGET CELLS FEW
[2019-10-25] MEDS: FLUoxetine 20mg capsule PO SCH ×2 (07:56→20:40)
[2019-10-25] MEDS: cloNIDine 0.1 mg tablet PO SCH ×3 (07:56→20:40)
[2019-10-25] MEDS: BYSTOLIC 5 MG PO SCH (07:56)
[2019-10-25] MEDS: tamsulosin 0.4mg capsule PO SCH (07:57)
[2019-10-25] MEDS: atorvastatin 20mg tablet PO SCH (07:57)
[2019-10-25] MEDS: lactobacillus rhamnosus 10,000 MMU CELLS/CAPSULE PO SCH ×2 (07:57→20:40)
[2019-10-25] MEDS: amLODIPine 5mg tablet PO SCH (07:57)
[2019-10-25] MEDS: famotidine 20mg tablet PO SCH ×2 (07:57→20:39)
[2019-10-25] MEDS: duloxetine 30mg CAPSULE.DR PO SCH (07:57)
[2019-10-25] MEDS: aspirin 81mg tablet.DR PO SCH (07:57)
[2019-10-25] MEDS: docusate sod 100mg capsule PO SCH ×2 (07:58→20:00)
[2019-10-25] MEDS: K and/or MAG REPLACEMENT MC SCH ×2 (08:00→20:00)
[2019-10-25] MEDS ORDERED: heparin 1,000 units/ml 10ml inj HE ONE ×4 (08:00→10:15)
[2019-10-25] MEDS: finasteride 5mg tablet PO SCH (08:00)
[2019-10-25] MEDS ORDERED: normal saline 1000ml 250 ML IV PRN ×2 (08:00→08:36)
[2019-10-25] MEDS ORDERED: heparin 1,000unit/ml 10ml vial 10 ML IV ONE (08:00)
[2019-10-25] MEDS ORDERED: epoetin 20,000 units/ml inj IV ONE (08:00)
[2019-10-25] MEDS ORDERED: normal saline 1000ml 100 ML IV PRN (08:36)
[2019-10-25 10:00] VITALS: BP 153/84
[2019-10-25 16:00] VITALS: BP 146/78
--- NOTE | 2019-10-25 17:50 | NUR ---
HEPARIN DOSING REMAINS THERAPEUTIC AT THIS TIME, NO DOSE CHANGE
[2019-10-25 18:00] VITALS: BP 154/86
--- NOTE | 2019-10-25 18:06 | NUR ---
PATIENT APPEARS TO BE EXPERIENCING CONFUSION POST DIALYSIS. DR RODRIGUEZ NOTIFIED.
--- NOTE | 2019-10-25 18:33 | NUR ---
RECEIVED REPORT FROM GAYLE KING AND ASSUMED PATIENT CARE
[2019-10-25] MEDS: gabapentin 400mg capsule PO SCH (20:39)
[2019-10-25] MEDS: HYDROmorphone 2mg tablet PO PRN (20:40)
[2019-10-25] MEDS: Melatonin 3mg tablet PO SCH (20:40)
[2019-10-25] MEDS ORDERED: warfarin 5mg tablet PO ONE (21:00)
[2019-10-25 22:00] VITALS: BP 156/90
[2019-10-26] MEDS: heparin 25,000 UNIT/250ml bag 250 ML IV SCH ×3 (01:36→20:32)
[2019-10-26] MEDS: VANCOMYCIN LEVEL IV SCH (03:00)
[2019-10-26] MEDS: HYDROcodone/acetaminophen 10/325mg tab PO PRN (04:48)
[2019-10-26 06:32] LABS: ABSOLUTE RETICS # 210200 /CUMM (23000-93000); BASOPHILS % (AUTO) 0.6 % (0-1); EOSINOPHILS # (AUTO) 0.2 X10'3 (0-0.9); EOSINOPHILS % (AUTO) 3.5 % (0-6); HEMOGLOBIN 7.1 g/dl (14.0-17.9); LYMPHOCYTES # (AUTO) 0.7 X10'3 (1.1-4.8); LYMPHOCYTES % (AUTO) 12.8 % (21-51); MEAN CORPUSCULAR HEMOGLOBIN 28.5 PG (27.0-31.0); MEAN CORPUSCULAR VOLUME 86.2 FL (78-98); MEAN PLATELET VOLUME 8.4 FL (7.4-10.4); MONOCYTES # (AUTO) 0.8 X10'3 (0-0.9); MONOCYTES % (AUTO) 13.8 % (2-12); NEUTROPHILS % (AUTO) 69.3 % (42-75); PLATELET COUNT 100 X10'3 (140-440); RED CELL DISTRIBUTION WIDTH 25.4 % (11.5-14.5); RETICULOCYTE % (AUTO) 8.4 % (0.5-1.5); WHITE BLOOD COUNT 5.8 X10'3 (4.5-11.0)
[2019-10-26 06:44] LABS: HEMATOCRIT 21.5 % (42.0-52.0)
[2019-10-26 06:54] VITALS: BP 157/92
[2019-10-26 07:02] LABS: ALANINE AMINOTRANSFERASE 9 U/L (12-78); ALBUMIN 2.2 G/DL (3.4-5.0); ALBUMIN/GLOBULIN RATIO 0.8 (1.1-1.5); ALKALINE PHOSPHATASE 60 IU/L (46-116); ANION GAP 8 (8-16); ASPARTATE AMINO TRANSFERASE 22 U/L (10-37); BILIRUBIN,TOTAL 0.7 MG/DL (0.1-1.0); BLOOD UREA NITROGEN 35 MG/DL (7-18); BUN/CREATININE RATIO 5.7 (5.4-32.0); C-REACTIVE PROTEIN 8.43 MG/DL (0.0-0.5); CALCIUM 8.1 MG/DL (8.5-10.1); CHLORIDE 104 MMOL/L (99-107); CREATININE 6.19 MG/DL (0.60-1.10); GLUCOSE 144 MG/DL (70-104); LACTATE DEHYDROGENASE 749 U/L (85-227); MAGNESIUM 1.8 MG/DL (1.5-2.4); PHOSPHORUS 4.5 MG/DL (2.3-4.5); SODIUM 141 MMOL/L (135-145); TOTAL CARBON DIOXIDE 29.3 MMOL/L (24-32); TOTAL PROTEIN 5.1 G/DL (6.4-8.2); eGFR 9 ML/MIN
[2019-10-26] MEDS: K and/or MAG REPLACEMENT MC SCH ×2 (08:00→20:00)
[2019-10-26] MEDS ORDERED: VANCOmycin 1250MG/NS 250ml Bag 250 ML IV PRN (08:00)
[2019-10-26] MEDS: duloxetine 30mg CAPSULE.DR PO SCH (08:26)
[2019-10-26] MEDS: docusate sod 100mg capsule PO SCH ×2 (08:27→20:34)
[2019-10-26] MEDS: atorvastatin 20mg tablet PO SCH (08:27)
[2019-10-26] MEDS: aspirin 81mg tablet.DR PO SCH (08:27)
[2019-10-26] MEDS: FLUoxetine 20mg capsule PO SCH ×2 (08:27→20:35)
[2019-10-26] MEDS: amLODIPine 5mg tablet PO SCH (08:27)
[2019-10-26] MEDS: lactobacillus rhamnosus 10,000 MMU CELLS/CAPSULE PO SCH ×2 (08:27→20:34)
[2019-10-26] MEDS: tamsulosin 0.4mg capsule PO SCH (08:27)
[2019-10-26] MEDS: cloNIDine 0.1 mg tablet PO SCH ×3 (08:28→21:39)
[2019-10-26] MEDS: BYSTOLIC 5 MG PO SCH (08:31)
[2019-10-26] MEDS: finasteride 5mg tablet PO SCH (08:32)
[2019-10-26] MEDS: famotidine 20mg tablet PO SCH ×2 (08:57→20:35)
[2019-10-26 09:24] LABS: ANISOCYTOSIS 3+; PLATELET ESTIMATE DECREASED
[2019-10-26 09:25] LABS: POLYCHROMASIA 1+
[2019-10-26 09:26] LABS: LARGE PLATELETS FEW; SCHISTOCYTES FEW
[2019-10-26 09:29] LABS: MICROCYTOSIS 2+
[2019-10-26] MEDS ORDERED: normal saline 1000ml 250 ML IV PRN (09:34)
[2019-10-26] MEDS ORDERED: heparin 1,000unit/ml 10ml vial 10 ML IV ONE (09:34)
[2019-10-26] MEDS ORDERED: epoetin 20,000 units/ml inj SQ ONE (09:35)
[2019-10-26] MEDS ORDERED: heparin 1,000 units/ml 10ml inj IV ONE (09:35)
[2019-10-26] MEDS ORDERED: heparin 1,000 units/ml 10ml inj HE ONE (09:40)
[2019-10-26 14:13] VITALS: BP 153/81
[2019-10-26 14:17] LABS: PARTIAL THROMBOPLASTIN TIME 61 SECONDS (22-32)
[2019-10-26] MEDS: HYDROmorphone 2mg tablet PO PRN (14:54)
--- NOTE | 2019-10-26 15:08 | NUR ---
DR BERRIOS WANTED IV REMOVED AFTER VANCO INFUSED TODAY AND HAVE CARBURIZER INFUSE FROM NOW ON TO AVOID PIVS. CONFIRMED WITH DR RODRIGUEZ THAT IT IS APPROPRIATE TO LEAVE IV IN UNTIL INR THERAPEUTIC WITH HEPARIN GTT. WILL CONTINUE TO MONITOR.
--- NOTE | 2019-10-26 15:32 | NUR ---
Reassessment: Pt PO has declined to roughly 50% avg past 7 days from 75-100% prior; receiving double proteins TIDWM. LBM 10/22 copious stool per EMR receiving routine colace. Pt noted to be more confused past few days requiring sitter as not to pull prior PICC and new HD cath per RN. Pt has JESSICA now on HD per MD. CRP and lactate dehydrogenase both elevated today though difficult to interpret given events over weekend per ID MD note; pt did have fall. RD d/w RN regarding MVI for wound healing needs per MD approval. Will continue to monitor for additional protein needs and PO hx w/ ALOC. Pt did have trial period today without sitter per RN. Rec: 1. continue carb controlled diet; double proteins TIDWM 2. bowel care as needed 3. MVI for wound healing per MD approval 4. wt per rx Addendum: 10/26/19 at [address] Amended: Links added.
[2019-10-26 18:00] VITALS: BP 154/81
[2019-10-26 20:06] LABS: PARTIAL THROMBOPLASTIN TIME 37 SECONDS (22-32)
[2019-10-26] MEDS: gabapentin 400mg capsule PO SCH (20:34)
[2019-10-26] MEDS ORDERED: warfarin 7.5mg tablet PO ONE ×2 (21:00→22:18)
[2019-10-26] MEDS: Melatonin 3mg tablet PO SCH (21:39)
--- NOTE | 2019-10-26 21:50 | NUR ---
NOT TRAINED IN STROKE ALERT
--- NOTE | 2019-10-26 21:50 | NUR ---
NOT STROKE ALERT CERTIFIED Addendum: 10/26/19 at 2151 by Cinthia Villatoro RN Amended: Links added.
--- NOTE | 2019-10-26 21:51 | NUR ---
NOT STROKE ALERT CERTIFIED Addendum: 10/26/19 at 2152 by Cinthia Villatoro RN Amended: Links added.
[2019-10-26 22:00] VITALS: BP 163/82
--- NOTE | 2019-10-26 22:11 | NUR ---
NOT STROKE CERTIFIED Addendum: 10/26/19 at 2212 by Cinthia Villatoro RN Amended: Links added.
[2019-10-27 02:48] LABS: BASOPHILS % (AUTO) 0.8 % (0-1); EOSINOPHILS # (AUTO) 0.3 X10'3 (0-0.9); EOSINOPHILS % (AUTO) 5.6 % (0-6); HEMATOCRIT 22.9 % (42.0-52.0); HEMOGLOBIN 7.4 g/dl (14.0-17.9); LYMPHOCYTES # (AUTO) 0.8 X10'3 (1.1-4.8); MEAN CORPUSCULAR HEMOGLOBIN 28.4 PG (27.0-31.0); MEAN CORPUSCULAR HGB CONC 32.3 g/dL (33.0-36.5); MEAN CORPUSCULAR VOLUME 87.9 FL (78-98); MEAN PLATELET VOLUME 8.5 FL (7.4-10.4); MONOCYTES # (AUTO) 0.7 X10'3 (0-0.9); MONOCYTES % (AUTO) 13.4 % (2-12); NEUTROPHILS # (AUTO) 3.5 X10'3 (1.8-7.7); NEUTROPHILS % (AUTO) 65.2 % (42-75); PLATELET COUNT 112 X10'3 (140-440); RED BLOOD COUNT 2.61 X10'6 (4.70-6.10); RED CELL DISTRIBUTION WIDTH 25.1 % (11.5-14.5); WHITE BLOOD COUNT 5.3 X10'3 (4.5-11.0)
[2019-10-27] MEDS: VANCOMYCIN LEVEL IV SCH (03:00)
[2019-10-27 03:03] LABS: ALANINE AMINOTRANSFERASE 10 U/L (12-78); ALBUMIN 2.4 G/DL (3.4-5.0); ALBUMIN/GLOBULIN RATIO 0.8 (1.1-1.5); ALKALINE PHOSPHATASE 63 IU/L (46-116); ANION GAP 8 (8-16); ASPARTATE AMINO TRANSFERASE 21 U/L (10-37); BILIRUBIN,TOTAL 0.7 MG/DL (0.1-1.0); BLOOD UREA NITROGEN 40 MG/DL (7-18); BUN/CREATININE RATIO 5.3 (5.4-32.0); CALCIUM 8.5 MG/DL (8.5-10.1); CHLORIDE 102 MMOL/L (99-107); CREATININE 7.49 MG/DL (0.60-1.10); GLUCOSE 152 MG/DL (70-104); MAGNESIUM 1.8 MG/DL (1.5-2.4); PHOSPHORUS 5.8 MG/DL (2.3-4.5); POTASSIUM 4.4 MMOL/L (3.5-5.1); SODIUM 138 MMOL/L (135-145); TOTAL CARBON DIOXIDE 27.8 MMOL/L (24-32); TOTAL PROTEIN 5.6 G/DL (6.4-8.2); VANCOMYCIN,RANDOM 23.4 UG/ML; eGFR 7 ML/MIN
[2019-10-27 03:43] LABS: PLATELET ESTIMATE DECREASED; POLYCHROMASIA 1+
[2019-10-27 03:44] LABS: ANISOCYTOSIS 3+
[2019-10-27] MEDS: heparin 25,000 UNIT/250ml bag 250 ML IV SCH (05:58)
[2019-10-27 06:00] VITALS: BP 162/87
--- NOTE | 2019-10-27 06:26 | NUR ---
Problems reprioritized. Patient report given, questions answered & plan of care reviewed with Dania KING.
--- NOTE | 2019-10-27 06:28 | NUR ---
Problems reprioritized. Patient report given, questions answered & plan of care reviewed with Dania KING.
--- NOTE | 2019-10-27 06:30 | NUR ---
Patient in room ORTHO 4016. I have received report from Cinthia and had the opportunity to ask questions and assume patient care.
[2019-10-27] MEDS: K and/or MAG REPLACEMENT MC SCH (08:00)
[2019-10-27] MEDS ORDERED: apixaban 2.5mg tablet PO SCH (08:45)
[2019-10-27] MEDS: aspirin 81mg tablet.DR PO SCH (08:49)
[2019-10-27] MEDS: tamsulosin 0.4mg capsule PO SCH (08:49)
[2019-10-27] MEDS: duloxetine 30mg CAPSULE.DR PO SCH (08:49)
[2019-10-27] MEDS: atorvastatin 20mg tablet PO SCH (08:50)
[2019-10-27] MEDS: amLODIPine 5mg tablet PO SCH (08:50)
[2019-10-27] MEDS: lactobacillus rhamnosus 10,000 MMU CELLS/CAPSULE PO SCH ×2 (08:50→20:13)
[2019-10-27] MEDS: FLUoxetine 20mg capsule PO SCH ×2 (08:50→20:10)
[2019-10-27] MEDS: docusate sod 100mg capsule PO SCH ×2 (08:50→20:10)
[2019-10-27] MEDS: famotidine 20mg tablet PO SCH ×2 (08:50→20:10)
[2019-10-27] MEDS: HYDROmorphone 2mg tablet PO PRN ×2 (08:51→22:25)
[2019-10-27] MEDS: BYSTOLIC 5 MG PO SCH (08:52)
[2019-10-27] MEDS ORDERED: APIX2.5T PO (08:52)
[2019-10-27] MEDS: cloNIDine 0.1 mg tablet PO SCH ×3 (08:52→20:09)
[2019-10-27] MEDS: finasteride 5mg tablet PO SCH (08:52)
[2019-10-27 10:00] VITALS: BP 149/79
[2019-10-27] MEDS ORDERED: ASPI-1071 PO (12:37)
[2019-10-27] MEDS ORDERED: LACT1CAP26 PO (12:37)
[2019-10-27] MEDS ORDERED: LACT10SO32 PO (12:37)
[2019-10-27] MEDS ORDERED: RIVA15TA PO (12:37)
[2019-10-27] MEDS ORDERED: RIVA20TA PO (12:37)
[2019-10-27] MEDS ORDERED: CLON0.1T2 PO (12:37)
[2019-10-27] MEDS ORDERED: NOR5T PO (12:37)
[2019-10-27 14:43] VITALS: BP 133/76
[2019-10-27] MEDS: HYDROcodone/acetaminophen 10/325mg tab PO PRN ×2 (14:56→20:34)
--- NOTE | 2019-10-27 15:43 | NUR ---
PAGER ID: [phone] MESSAGE: Ricardo, for Mr. Barrientos in 4015, just fyi, dialysis has not been able to see him yet, thank you Dania #[phone]
[2019-10-27] MEDS ORDERED: epoetin 20,000 units/ml inj IV ONE (16:45)
[2019-10-27] MEDS ORDERED: heparin 1,000 units/ml 10ml inj HE ONE ×2 (16:50)
[2019-10-27] MEDS ORDERED: rivaroxaban 20mg tablet PO SCH (17:00)
--- NOTE | 2019-10-27 17:18 | NUR ---
PT CURRENTLY HAVING DIALYSIS. XARELTO TO BE GIVEN ON CARDIOLOGY TECHNICIAN PER PHARMACY UNABLE TO CHANGE TIME DUE.
--- NOTE | 2019-10-27 17:27 | NUR ---
I have reviewed and agree with the assessment performed/charted by Sheri Lu RN.
[2019-10-27 18:00] VITALS: BP 130/82
[2019-10-27] MEDS: gabapentin 400mg capsule PO SCH (20:10)
[2019-10-27] MEDS: Melatonin 3mg tablet PO SCH (21:00)
[2019-10-27 22:00] VITALS: BP 151/88
--- NOTE | 2019-10-27 22:45 | NUR ---
PT LEFT WITH STABLE CONDITION AFTER DIALYSIS. VSS. NIGHT MEDS GIVEN. PICTURE OF RIGHT HIP TAKEN. DC INSTRUCTION GIVEN TO PT AND HIS AND ANSWERED QUESTIONS. PT AGREED TO FOLLOW UP WITH MULTIPLE MD'S. DC'D IV AND TELE BOX SENT BACK. PT TRANSFERRED BY WHEELCHAIR TO PRIVATE VEHICLE.
[2019-11-02] MEDS ORDERED: diatr meglu/diatrizoate 30ml oral sol.-(3 dose) bottle PO SCH
== END 2019-10-27 22:42 | disposition home or self-care (01) | DRG 856 ==
LOC: ER 23:08 → ED HOLD 10-06 03:32 → ORTHO 4S 10-06 04:11
PROVIDERS: ADMIT Internal Medicine; ATTEND Family Medicine
PROC: 0S990ZZ Drainage of Right Hip Joint, Open Approach (ICD-10-PCS; principal; 2019-10-06 08:32)
PROC: 3E0U029 Introduction of Other Anti-infective into Joints, Open Approach (ICD-10-PCS; 2019-10-08)
PROC: 30233N1 Transfusion of Nonautologous Red Blood Cells into Peripheral Vein, Percutaneous Approach (ICD-10-PCS; 2019-10-16)
PROC: 0DJ08ZZ Inspection of Upper Intestinal Tract, Via Natural or Artificial Opening Endoscopic (ICD-10-PCS; 2019-10-24)
DX: T81.41XA Infection following a procedure, superficial incisional surgical site, initial encounter (principal); N17.0 Acute kidney failure with tubular necrosis; L03.115 Cellulitis of right lower limb; I69.351 Hemiplegia and hemiparesis following cerebral infarction affecting right dominant side; E87.2 Acidosis; I82.621 Acute embolism and thrombosis of deep veins of right upper extremity; D64.9 Anemia, unspecified; I48.91 Unspecified atrial fibrillation; E11.22 Type 2 diabetes mellitus with diabetic chronic kidney disease; I12.9 Hypertensive chronic kidney disease with stage 1 through stage 4 chronic kidney disease, or unspecified chronic kidney disease; E78.5 Hyperlipidemia, unspecified; E87.6 Hypokalemia; N40.0 Benign prostatic hyperplasia without lower urinary tract symptoms; T36.8X5A Adverse effect of other systemic antibiotics, initial encounter; Z96.641 Presence of right artificial hip joint; F32.9 Major depressive disorder, single episode, unspecified; G89.29 Other chronic pain; M19.90 Unspecified osteoarthritis, unspecified site; N18.3 Chronic kidney disease, stage 3 (moderate); D69.6 Thrombocytopenia, unspecified; K44.9 Diaphragmatic hernia without obstruction or gangrene; M54.9 Dorsalgia, unspecified; Z82.49 Family history of ischemic heart disease and other diseases of the circulatory system; Y92.89 Other specified places as the place of occurrence of the external cause; W18.39XA Other fall on same level, initial encounter; Y93.89 Activity, other specified; Y92.239 Unspecified place in hospital as the place of occurrence of the external cause; Y99.8 Other external cause status; Z87.11 Personal history of peptic ulcer disease; Z79.82 Long term (current) use of aspirin; Z79.899 Other long term (current) drug therapy; Z91.013 Allergy to seafood; Z87.891 Personal history of nicotine dependence; Z83.79 Family history of other diseases of the digestive system
CPT/HCPCS: 36558; 36573; 43235; 93306; 99285; Z7506; Z7508; 36415; 36430; 70450; 70544; 70547; 70551; 71045; 73502; 76775; 76937; 77001; 80048; 80053; 80061; 80202; 81001; 82140; 82272; 82570; 82948; 83010; 83540; 83550; 83605; 83615; 83735; 84100; 84145; 84156; 84300; 84439; 84443; 85025; 85045; 85610; 85651; 85730; 86140; 86480; 86705; 86706; 86803; 86885; 86900; 86901; 86920; 87040; 87070; 87075; 87081; 87088; 87102; 87207; 87340; 93005; 93971; 97110; 97116; 97161; 97530; 99152; A4215; A4618; A4620; A6454; A6550; A7000; A9270; A9272; C1713; C1750; C1769; C1894; G0257; G0378; J0360; J0690; J0696; J1170; J1644; J1815; J2001; J2150; J2250; J2270; J2370; J2405; J2543; J2704; J3010; J3260; J3370; J3490; J7030; J7040; J7120; P9016; Q4081

== ENCOUNTER 2019-11-01 16:50 | Inpatient (IN) | payer BC, MEDICARE ==
[~2019-11-01] VITALS: Ht 190.5 cm; Wt 99.0 kg
[~2019-11-01 16:50] MED LIST changes: +ASPI-1071 PO; -ASPI1CPM6 PO; -CHLO25TA10 PO; +CLON0.1T2 PO; +GABA800T11 PO; +LACT10SO32 PO; +LACT1CAP26 PO; +MELA3TAB39 PO; -MELA3TAB64 PO; +NOR5T PO; +RIVA15TA PO; +RIVA20TA PO
--- NOTE | 2019-11-01 17:27 | NUR ---
DIALYSIS PORT RIGHT UPPER CHEST.
[2019-11-01 18:31] LABS: BASOPHILS % (AUTO) 0.3 % (0-1); EOSINOPHILS % (AUTO) 0 % (0-6); HEMATOCRIT 22.9 % (42.0-52.0); HEMOGLOBIN 7.2 g/dl (14.0-17.9); LYMPHOCYTES # (AUTO) 0.6 X10'3 (1.1-4.8); LYMPHOCYTES % (AUTO) 9.5 % (21-51); MEAN CORPUSCULAR HEMOGLOBIN 28.4 PG (27.0-31.0); MEAN CORPUSCULAR HGB CONC 31.6 g/dL (33.0-36.5); MEAN CORPUSCULAR VOLUME 89.9 FL (78-98); MEAN PLATELET VOLUME 7.5 FL (7.4-10.4); MONOCYTES # (AUTO) 0.3 X10'3 (0-0.9); NEUTROPHILS # (AUTO) 5.3 X10'3 (1.8-7.7); NEUTROPHILS % (AUTO) 85.2 % (42-75); PLATELET COUNT 134 X10'3 (140-440); RED BLOOD COUNT 2.54 X10'6 (4.70-6.10); RED CELL DISTRIBUTION WIDTH 23.3 % (11.5-14.5); WHITE BLOOD COUNT 6.2 X10'3 (4.5-11.0)
[2019-11-01 18:44] LABS: ALANINE AMINOTRANSFERASE 11 U/L (12-78); ALBUMIN 2.9 G/DL (3.4-5.0); ALBUMIN/GLOBULIN RATIO 0.9 (1.1-1.5); ALKALINE PHOSPHATASE 67 IU/L (46-116); ANION GAP 28 (8-16); ASPARTATE AMINO TRANSFERASE 32 U/L (10-37); BLOOD UREA NITROGEN 23 MG/DL (7-18); BUN/CREATININE RATIO 4.4 (5.4-32.0); CALCIUM 8.7 MG/DL (8.5-10.1); CHLORIDE 97 MMOL/L (99-107); CREATININE 5.23 MG/DL (0.60-1.10); GLUCOSE 111 MG/DL (70-104); POTASSIUM 4.4 MMOL/L (3.5-5.1); SODIUM 140 MMOL/L (135-145); TOTAL CARBON DIOXIDE 15.3 MMOL/L (24-32); eGFR 11 ML/MIN
[2019-11-01 19:13] LABS: ANISOCYTOSIS 3+; MICROCYTOSIS 1+; PLATELET ESTIMATE DECREASED
[2019-11-01] MEDS ORDERED: acetaminophen 325mg tablet PO PRN ×2 (21:35)
[2019-11-01] MEDS ORDERED: ondansetron/PF 4mg/2ml inj IV PRN (21:35)
[2019-11-01] MEDS ORDERED: HYDROcodone/acetaminophen 5mg/325mg tablet PO PRN (21:35)
--- NOTE | 2019-11-01 22:42 | NUR ---
Patient in room ED 3. I have received report from CHRISTINE Wilburn and had the opportunity to ask questions and assume patient care.
[2019-11-01 23:07] VITALS: BP 168/89
[2019-11-01 23:31] VITALS: BP 150/84
[2019-11-01] MEDS: HYDROcodone/acetaminophen 10/325mg tab PO PRN (23:37)
[2019-11-02] VITALS (8 sets, daily range): BP systolic 150–182; BP diastolic 80–103
--- NOTE | 2019-11-02 06:11 | NUR ---
Problems reprioritized. Patient report given, questions answered & plan of care reviewed with CHRISTINE Vivar.
--- NOTE | 2019-11-02 06:30 | NUR ---
Patient in room PCU 3028. I have received report from Ghazala KING and had the opportunity to ask questions and assume patient care. Patient was awake during report, patient knows who he is and that he is at hospital, slightly confused, will continue to monitor.
[2019-11-02 07:16] LABS: BASOPHILS % (AUTO) 0.3 % (0-1); EOSINOPHILS % (AUTO) 0.3 % (0-6); HEMATOCRIT 23.5 % (42.0-52.0); HEMOGLOBIN 7.5 g/dl (14.0-17.9); LYMPHOCYTES # (AUTO) 0.9 X10'3 (1.1-4.8); LYMPHOCYTES % (AUTO) 12.8 % (21-51); MEAN CORPUSCULAR HGB CONC 32.2 g/dL (33.0-36.5); MEAN CORPUSCULAR VOLUME 90.1 FL (78-98); MEAN PLATELET VOLUME 8.3 FL (7.4-10.4); MONOCYTES # (AUTO) 1.1 X10'3 (0-0.9); MONOCYTES % (AUTO) 15.5 % (2-12); NEUTROPHILS % (AUTO) 71.1 % (42-75); PLATELET COUNT 177 X10'3 (140-440); RED BLOOD COUNT 2.61 X10'6 (4.70-6.10); RED CELL DISTRIBUTION WIDTH 23.4 % (11.5-14.5); WHITE BLOOD COUNT 7.1 X10'3 (4.5-11.0)
[2019-11-02 07:42] LABS: ALANINE AMINOTRANSFERASE 14 U/L (12-78); ALBUMIN 3.1 G/DL (3.4-5.0); ALKALINE PHOSPHATASE 63 IU/L (46-116); ANION GAP 35 (8-16); ASPARTATE AMINO TRANSFERASE 35 U/L (10-37); BILIRUBIN,TOTAL 0.8 MG/DL (0.1-1.0); BLOOD UREA NITROGEN 35 MG/DL (7-18); BUN/CREATININE RATIO 5.5 (5.4-32.0); CALCIUM 8.8 MG/DL (8.5-10.1); CHLORIDE 94 MMOL/L (99-107); CREATININE 6.31 MG/DL (0.60-1.10); GLUCOSE 120 MG/DL (70-104); MAGNESIUM 1.9 MG/DL (1.5-2.4); PHOSPHORUS 6.9 MG/DL (2.3-4.5); SODIUM 140 MMOL/L (135-145); TOTAL PROTEIN 6.1 G/DL (6.4-8.2); eGFR 9 ML/MIN
[2019-11-02 07:53] LABS: TOTAL CARBON DIOXIDE 10.9 MMOL/L (24-32)
--- NOTE | 2019-11-02 07:55 | NUR ---
Critical lab: CO2 10.9. Notified primary Elisa KING.
--- NOTE | 2019-11-02 08:15 | NUR ---
Called Dr. Landers and reported critical lab values, and that the patient was still altered mentally, no new orders obtained at this time.
[2019-11-02 09:24] LABS: ANISOCYTOSIS 3+; MICROCYTOSIS 1+; PLATELET ESTIMATE NORMAL; TOTAL CELLS COUNTED 100
[2019-11-02 09:25] LABS: SCHISTOCYTES FEW
[2019-11-02] MEDS: HYDROcodone/acetaminophen 10/325mg tab PO PRN (09:32)
[2019-11-02] MEDS ORDERED: heparin 1,000unit/ml 10ml vial 10 ML IV ONE (09:58)
[2019-11-02] MEDS ORDERED: heparin 1,000 units/ml 10ml inj IV ONE (10:00)
[2019-11-02] MEDS ORDERED: albumin (human) 25% 100ml IV 100 ML IV PRN (10:00)
[2019-11-02] MEDS ORDERED: epoetin 20,000 units/ml inj IV ONE (10:00)
[2019-11-02] MEDS ORDERED: vancomycin/NS 1 GM ADD-VANTAGE 250 ML IV ONE ×2 (10:55→17:40)
--- NOTE | 2019-11-02 11:00 | NUR ---
Spoke with Dr. Landers, new orders obtained, patient is to start HD, antibiotics after HD, MRI after HD and vascular study after HD. Will continue to monitor.
[2019-11-02] MEDS ORDERED: heparin 1,000 units/ml 10ml inj HE ONE ×2 (11:15)
[2019-11-02] MEDS ORDERED: WARF-55 PO (15:55)
[2019-11-02] MEDS ORDERED: ASPI-1265 PO (15:55)
[2019-11-02] MEDS ORDERED: CLON0.2T PO (15:55)
[2019-11-02] MEDS ORDERED: AMLO5TAB96 PO (15:55)
[2019-11-02] MEDS ORDERED: LACT1CAP26 PO (15:55)
[2019-11-02] MEDS: HYDROmorphone 1 mg/ml syringe IV PRN (16:38)
[2019-11-02] MEDS ORDERED: cefTAZidime inj. 1 GM in normal saline 100ml IV soln 100 ML IV SCH ×2 (16:55→20:00)
[2019-11-02] MEDS: cefTAZidime inj. 1 GM in normal saline 100ml IV soln 100 ML IV SCH (18:11)
--- NOTE | 2019-11-02 18:12 | NUR ---
Problems reprioritized. Patient report given, questions answered & plan of care reviewed with Daniela KING.
[2019-11-03] VITALS (10 sets, daily range): BP systolic 139–177; BP diastolic 79–92
[2019-11-03] MEDS: HYDROcodone/acetaminophen 10/325mg tab PO PRN ×2 (00:16→20:25)
[2019-11-03] MEDS: cloNIDine 0.1 mg tablet PO SCH ×4 (00:16→22:01)
[2019-11-03] MEDS: amLODIPine 5mg tablet PO SCH ×3 (00:16→20:21)
[2019-11-03] MEDS: hydrALAZINE 20mg/ml inj. IV PRN ×2 (03:08→09:24)
[2019-11-03 05:17] LABS: BASOPHILS % (AUTO) 0.8 % (0-1); EOSINOPHILS # (AUTO) 0.1 X10'3 (0-0.9); HEMOGLOBIN 7.1 g/dl (14.0-17.9); LYMPHOCYTES # (AUTO) 0.7 X10'3 (1.1-4.8); MEAN CORPUSCULAR HEMOGLOBIN 29.4 PG (27.0-31.0); MEAN CORPUSCULAR HGB CONC 33.6 g/dL (33.0-36.5); MEAN CORPUSCULAR VOLUME 87.5 FL (78-98); MEAN PLATELET VOLUME 7.5 FL (7.4-10.4); MONOCYTES # (AUTO) 0.7 X10'3 (0-0.9); MONOCYTES % (AUTO) 17.8 % (2-12); NEUTROPHILS # (AUTO) 2.4 X10'3 (1.8-7.7); NEUTROPHILS % (AUTO) 60.4 % (42-75); PLATELET COUNT 129 X10'3 (140-440); RED BLOOD COUNT 2.41 X10'6 (4.70-6.10); RED CELL DISTRIBUTION WIDTH 23.5 % (11.5-14.5); WHITE BLOOD COUNT 3.9 X10'3 (4.5-11.0)
[2019-11-03 05:21] LABS: HEMATOCRIT 21.1 % (42.0-52.0)
--- NOTE | 2019-11-03 05:24 | NUR ---
Reported critical Hct 21.1 to Hussein Vyas NP. He is also aware of the patient's hgb of 7.1 and wishes to wait until Dr. Landers is able to decide if he would like to transfuse this patient.
[2019-11-03 05:38] LABS: ALANINE AMINOTRANSFERASE 13 U/L (12-78); ALBUMIN 2.8 G/DL (3.4-5.0); ALKALINE PHOSPHATASE 61 IU/L (46-116); ANION GAP 13 (8-16); ASPARTATE AMINO TRANSFERASE 35 U/L (10-37); BILIRUBIN,TOTAL 0.9 MG/DL (0.1-1.0); BLOOD UREA NITROGEN 26 MG/DL (7-18); BUN/CREATININE RATIO 5.1 (5.4-32.0); CALCIUM 8.2 MG/DL (8.5-10.1); CHLORIDE 102 MMOL/L (99-107); CREATININE 5.11 MG/DL (0.60-1.10); GLUCOSE 103 MG/DL (70-104); MAGNESIUM 1.9 MG/DL (1.5-2.4); PHOSPHORUS 4.8 MG/DL (2.3-4.5); POTASSIUM 3.7 MMOL/L (3.5-5.1); SODIUM 141 MMOL/L (135-145); TOTAL CARBON DIOXIDE 25.6 MMOL/L (24-32); TOTAL PROTEIN 5.6 G/DL (6.4-8.2); eGFR 11 ML/MIN
--- NOTE | 2019-11-03 06:22 | NUR ---
Problems reprioritized. Patient report given, questions answered & plan of care reviewed with CHRISTINE ROSAS.
--- NOTE | 2019-11-03 07:07 | NUR ---
Patient in room PCU 3028. I have received report from Daniela KING and had the opportunity to ask questions and assume patient care.
[2019-11-03 07:34] LABS: ANISOCYTOSIS 3+; PLATELET ESTIMATE DECREASED; SCHISTOCYTES FEW
[2019-11-03 07:35] LABS: POLYCHROMASIA FEW
[2019-11-03] MEDS: cefTAZidime inj. 1 GM in normal saline 100ml IV soln 100 ML IV SCH (07:44)
[2019-11-03] MEDS: metoprolol tartrate 25mg tablet PO SCH ×2 (07:45→20:21)
--- NOTE | 2019-11-03 09:27 | NUR ---
Routine AM blood pressure meds ineffective in decreasing blood pressure. Recheck of blood pressure was 177/90. PRN hydralazine given, pending results.
--- NOTE | 2019-11-03 10:06 | NUR ---
Spoke with Dr. Landers regarding current diet. Received new orders to start renal, C.C. diet. H&H reviewed, no transfusion will be ordered today. Pt. will not receive Dialysis today. HgA1c and DM dx reviewed with and he declined needing to monitor blood sugars. Infection control will continue to monitor patient r/t results of right hip MRI. New orders implemented.
[2019-11-03] MEDS ORDERED: HYDROMORPHONE HCL PO PRN (11:00)
--- NOTE | 2019-11-03 11:00 | NUR ---
Re-check of blood pressure revealed 152/88, patient continues to deny pain. is at bedside and the patient is resting comfortably at this time.
[2019-11-03] MEDS ORDERED: vancomycin/NS 1 GM ADD-VANTAGE 250 ML IV PRN (11:35)
[2019-11-03] MEDS: EXENATIDE 10 MCG IJ SCH (11:50)
--- NOTE | 2019-11-03 12:51 | NUR ---
Patients stated she would bring in the [place] tomorrow, therefore it was not administered today. aware.
--- NOTE | 2019-11-03 14:21 | NUR ---
Cardiac diet/Malnutrition consults: Supposed to be DM consult. Pt hx DM w/ A1C less than 7 and not appropriate for DM ed at this time. Pt admit w/ R hip hemiarthroplasty infection, metabolic encephalopathy, lactic acidosis, and hx ESRD on HD. Metabolic encephalopathy and lactic acidosis resolved per MD note. Per MD note; no physical signs of infection at this time. Pt seen recently by RD on prior admit 10/10/19 for written/verbal high protein ed w/ RD contact information provided s/p washout w/ hardware retention. Pt previously agreed to double proteins TIDWM on prior admit but current PO hx only 25% first clear liquid meal. Now advanced to renal/carb controlled diet w/ PO pending. Given pt additional protein needs RD recs ensure high protein TIDWM; MD notified. RD also d/w RN regarding MVI for wound healing needs per MD approval. Pt wt to fluctuate w/ +2 bilateral ankle edema and R arm mild +2 edema in addition to HD but has no significant wt loss hx at this time. Confused on admit "Unsure" if actual wt loss per nursing malnutrition assessment; now AOx4 slow to recall information per EMR. At this time pt does not meet minimum malnutrition criteria given current edema less likely from declining nutrition given DX and HD hx in addition to stable wt hx. Will continue to monitor for ONS acceptance and additional malnutrition criteria this admit. Rec: 1. continue carb controlled/renal diet per MD 2. ensure high protein TIDWM; MD notified 3. MVI for wound healing needs Addendum: 11/03/19 at [address] Amended: Links added.
[2019-11-03] MEDS: HYDROmorphone 1 mg/ml syringe IV PRN (15:37)
--- NOTE | 2019-11-03 16:18 | NUR ---
patient stated he feels better today. Blood pressure has returned to a normal range. Pt. c/o pain X1, medicated with PRN Dilaudid which was effective. Pt. is resting comfortably in no apparent distress. Will continue to monitor.
[2019-11-03] MEDS: lactose-reduced food (Ensure High Protein) 237ml bottle PO SCH (18:00)
--- NOTE | 2019-11-03 18:23 | NUR ---
Problems reprioritized. Patient report given, questions answered & plan of care reviewed with andi KING.
--- NOTE | 2019-11-03 18:27 | NUR ---
Patient in room PCU 3028. I have received report from Ghazala KING and had the opportunity to ask questions and assume patient care.
[2019-11-03] MEDS: FLUoxetine 20mg capsule PO SCH (20:21)
[2019-11-03] MEDS ORDERED: gabapentin 400mg capsule PO SCH (21:00)
[2019-11-03] MEDS ORDERED: warfarin 5mg tablet PO ONE (21:00)
[2019-11-03] MEDS: Melatonin 3mg tablet PO SCH (22:01)
[2019-11-04] VITALS (7 sets, daily range): BP systolic 133–168; BP diastolic 77–97
[2019-11-04] MEDS: VANCOMYCIN LEVEL IV SCH (03:00)
[2019-11-04 05:04] LABS: BASOPHILS % (AUTO) 0.7 % (0-1); EOSINOPHILS # (AUTO) 0.1 X10'3 (0-0.9); EOSINOPHILS % (AUTO) 3.5 % (0-6); HEMOGLOBIN 7.1 g/dl (14.0-17.9); LYMPHOCYTES # (AUTO) 0.6 X10'3 (1.1-4.8); LYMPHOCYTES % (AUTO) 16.8 % (21-51); MEAN CORPUSCULAR HEMOGLOBIN 28.8 PG (27.0-31.0); MEAN CORPUSCULAR HGB CONC 32.9 g/dL (33.0-36.5); MEAN CORPUSCULAR VOLUME 87.6 FL (78-98); MEAN PLATELET VOLUME 7.3 FL (7.4-10.4); MONOCYTES # (AUTO) 0.7 X10'3 (0-0.9); MONOCYTES % (AUTO) 18.7 % (2-12); NEUTROPHILS # (AUTO) 2.2 X10'3 (1.8-7.7); NEUTROPHILS % (AUTO) 60.3 % (42-75); PLATELET COUNT 115 X10'3 (140-440); RED BLOOD COUNT 2.48 X10'6 (4.70-6.10); RED CELL DISTRIBUTION WIDTH 22.7 % (11.5-14.5); WHITE BLOOD COUNT 3.7 X10'3 (4.5-11.0)
[2019-11-04 05:11] LABS: HEMATOCRIT 21.7 % (42.0-52.0)
--- NOTE | 2019-11-04 05:18 | NUR ---
PAGER ID: [phone] MESSAGE: Mack Barrientos [id number] admitted with lactic acidosis/ALOC Hgb 7.1 and Hct 21.7 this AM has in to transfuse if his Hbg is below 7, his Hgb was 7.1 and Hct was 21.1 yesterday thank you Herlinda KING [phone]
[2019-11-04 05:20] LABS: ALANINE AMINOTRANSFERASE 10 U/L (12-78); ALBUMIN 2.6 G/DL (3.4-5.0); ALKALINE PHOSPHATASE 56 IU/L (46-116); ANION GAP 9 (8-16); ASPARTATE AMINO TRANSFERASE 25 U/L (10-37); BILIRUBIN,TOTAL 0.8 MG/DL (0.1-1.0); BLOOD UREA NITROGEN 37 MG/DL (7-18); BUN/CREATININE RATIO 5.2 (5.4-32.0); CALCIUM 8.7 MG/DL (8.5-10.1); CHLORIDE 104 MMOL/L (99-107); CREATININE 7.18 MG/DL (0.60-1.10); GLUCOSE 150 MG/DL (70-104); PHOSPHORUS 5.6 MG/DL (2.3-4.5); POTASSIUM 3.4 MMOL/L (3.5-5.1); SODIUM 142 MMOL/L (135-145); TOTAL CARBON DIOXIDE 29.5 MMOL/L (24-32); TOTAL PROTEIN 5.3 G/DL (6.4-8.2); VANCOMYCIN,RANDOM 15.5 UG/ML; eGFR 8 ML/MIN
--- NOTE | 2019-11-04 06:24 | NUR ---
Problems reprioritized. Patient report given, questions answered & plan of care reviewed with Harmony KING.
[2019-11-04 06:58] LABS: ANISOCYTOSIS 3+; PLATELET ESTIMATE DECREASED
[2019-11-04 07:05] LABS: SCHISTOCYTES FEW
[2019-11-04 07:06] LABS: POLYCHROMASIA FEW
[2019-11-04] MEDS ORDERED: heparin 1,000 units/ml 10ml inj IV ONE (08:00)
[2019-11-04] MEDS: EXENATIDE 10 MCG IJ SCH (08:00)
[2019-11-04] MEDS ORDERED: epoetin 20,000 units/ml inj IV ONE (08:00)
[2019-11-04] MEDS ORDERED: heparin 1,000unit/ml 10ml vial 10 ML IV ONE (08:00)
[2019-11-04] MEDS: lactose-reduced food (Ensure High Protein) 237ml bottle PO SCH ×3 (08:00→18:03)
[2019-11-04] MEDS ORDERED: albumin (human) 25% 100ml IV 100 ML IV PRN (08:00)
[2019-11-04] MEDS: cloNIDine 0.1 mg tablet PO SCH ×3 (09:06→21:32)
[2019-11-04] MEDS: FLUoxetine 20mg capsule PO SCH ×2 (09:06→19:58)
[2019-11-04] MEDS: finasteride 5mg tablet PO SCH (09:06)
[2019-11-04] MEDS: tamsulosin 0.4mg capsule PO SCH (09:06)
[2019-11-04] MEDS: duloxetine 30mg CAPSULE.DR PO SCH (09:06)
[2019-11-04] MEDS: lactobacillus rhamnosus 10,000 MMU CELLS/CAPSULE PO SCH (09:07)
[2019-11-04] MEDS: metoprolol tartrate 25mg tablet PO SCH ×2 (09:07→19:58)
[2019-11-04] MEDS: atorvastatin 20mg tablet PO SCH (09:07)
[2019-11-04] MEDS: amLODIPine 5mg tablet PO SCH ×2 (09:07→19:58)
[2019-11-04] MEDS: aspirin 81mg tab.chew PO SCH (09:07)
--- NOTE | 2019-11-04 10:17 | NUR ---
Administered Ensure that was on patient's breakfast tray, bar code wouldn't scan. Patient only drank half of his ensure.
[2019-11-04] MEDS: HYDROcodone/acetaminophen 10/325mg tab PO PRN (10:34)
[2019-11-04] MEDS ORDERED: heparin 1,000 units/ml 10ml inj HE ONE ×2 (11:05)
[2019-11-04] MEDS: HYDROmorphone 1 mg/ml syringe IV PRN ×2 (12:42→21:34)
[2019-11-04] MEDS ORDERED: midazolam 2 mg/2 ml injection ONE ×2 (13:55→15:12)
[2019-11-04] MEDS ORDERED: fentaNYL/PF 50MCG/1 ML 2ML syringe ONE ×2 (13:56→15:13)
--- NOTE | 2019-11-04 16:43 | NUR ---
1500 vital signs not done because patient was down at procedure.
--- NOTE | 2019-11-04 18:21 | NUR ---
Problems reprioritized. Patient report given, questions answered & plan of care reviewed with CHRISTINE Pate. Patient stable at transfer of care.
--- NOTE | 2019-11-04 18:38 | NUR ---
Patient in room PCU 3028. I have received report from Harmony KING and had the opportunity to ask questions and assume patient care.
[2019-11-04] MEDS ORDERED: potassium CL 10mEq/100ml bag 100 ML IV PRN (19:55)
[2019-11-04] MEDS ORDERED: potassium Cl 20 mEq SR tablet PO PRN ×2 (19:55)
[2019-11-04] MEDS ORDERED: warfarin 5mg tablet PO ONE (21:00)
--- NOTE | 2019-11-04 21:24 | NUR ---
notified pharmacy that there was no Coumadin in pt specific bin, will administer the medication as soon as it is ready for the pt
[2019-11-04] MEDS: Melatonin 3mg tablet PO SCH (21:32)
[2019-11-04] MEDS: gabapentin 400mg capsule PO SCH (21:33)
[2019-11-05 03:00] VITALS: BP 160/79
[2019-11-05] MEDS: VANCOMYCIN LEVEL IV SCH (03:00)
--- NOTE | 2019-11-05 06:12 | NUR ---
Problems reprioritized. Patient report given, questions answered & plan of care reviewed with Harmony KING.
[2019-11-05 07:00] VITALS: BP 163/106
[2019-11-05 07:05] LABS: BASOPHILS % (AUTO) 1.2 % (0-1); EOSINOPHILS # (AUTO) 0.2 X10'3 (0-0.9); EOSINOPHILS % (AUTO) 5.2 % (0-6); HEMATOCRIT 23.2 % (42.0-52.0); HEMOGLOBIN 7.7 g/dl (14.0-17.9); LYMPHOCYTES # (AUTO) 0.6 X10'3 (1.1-4.8); MEAN CORPUSCULAR HEMOGLOBIN 29.4 PG (27.0-31.0); MEAN CORPUSCULAR HGB CONC 33.1 g/dL (33.0-36.5); MEAN CORPUSCULAR VOLUME 88.7 FL (78-98); MEAN PLATELET VOLUME 7.2 FL (7.4-10.4); MONOCYTES # (AUTO) 0.6 X10'3 (0-0.9); MONOCYTES % (AUTO) 17.1 % (2-12); NEUTROPHILS # (AUTO) 2.2 X10'3 (1.8-7.7); NEUTROPHILS % (AUTO) 60.5 % (42-75); PLATELET COUNT 107 X10'3 (140-440); RED BLOOD COUNT 2.62 X10'6 (4.70-6.10); WHITE BLOOD COUNT 3.7 X10'3 (4.5-11.0)
[2019-11-05] MEDS: amLODIPine 5mg tablet PO SCH ×2 (07:20→20:18)
[2019-11-05] MEDS: lactobacillus rhamnosus 10,000 MMU CELLS/CAPSULE PO SCH (07:20)
[2019-11-05] MEDS: aspirin 81mg tab.chew PO SCH (07:20)
[2019-11-05] MEDS: cloNIDine 0.1 mg tablet PO SCH ×3 (07:20→20:18)
[2019-11-05] MEDS: tamsulosin 0.4mg capsule PO SCH (07:20)
[2019-11-05] MEDS: FLUoxetine 20mg capsule PO SCH ×2 (07:20→20:18)
[2019-11-05] MEDS: atorvastatin 20mg tablet PO SCH (07:20)
[2019-11-05] MEDS: finasteride 5mg tablet PO SCH (07:21)
[2019-11-05] MEDS: metoprolol tartrate 25mg tablet PO SCH ×2 (07:21→20:17)
[2019-11-05] MEDS: duloxetine 30mg CAPSULE.DR PO SCH (07:21)
[2019-11-05 07:26] LABS: ALANINE AMINOTRANSFERASE 11 U/L (12-78); ALBUMIN 2.5 G/DL (3.4-5.0); ALBUMIN/GLOBULIN RATIO 0.9 (1.1-1.5); ALKALINE PHOSPHATASE 61 IU/L (46-116); ANION GAP 5 (8-16); ASPARTATE AMINO TRANSFERASE 23 U/L (10-37); BILIRUBIN,TOTAL 0.9 MG/DL (0.1-1.0); BLOOD UREA NITROGEN 32 MG/DL (7-18); BUN/CREATININE RATIO 5.7 (5.4-32.0); CALCIUM 8.2 MG/DL (8.5-10.1); CHLORIDE 104 MMOL/L (99-107); CREATININE 5.58 MG/DL (0.60-1.10); GLUCOSE 142 MG/DL (70-104); MAGNESIUM 1.9 MG/DL (1.5-2.4); PHOSPHORUS 3.5 MG/DL (2.3-4.5); POTASSIUM 3.9 MMOL/L (3.5-5.1); SODIUM 140 MMOL/L (135-145); TOTAL CARBON DIOXIDE 30.6 MMOL/L (24-32); TOTAL PROTEIN 5.2 G/DL (6.4-8.2); eGFR 10 ML/MIN
[2019-11-05] MEDS: EXENATIDE 10 MCG IJ SCH (07:55)
[2019-11-05] MEDS: lactose-reduced food (Ensure High Protein) 237ml bottle PO SCH ×3 (08:00→18:00)
[2019-11-05] MEDS ORDERED: vancomycin/NS 1 GM ADD-VANTAGE 250 ML IV ONE (08:00)
[2019-11-05 08:57] LABS: ANISOCYTOSIS 3+; HYPOCHROMASIA 1+; PLATELET ESTIMATE DECREASED; POLYCHROMASIA 1+; SCHISTOCYTES 1+
[2019-11-05 11:00] VITALS: BP 154/87
[2019-11-05] MEDS: HYDROmorphone 1 mg/ml syringe IV PRN ×2 (11:40→17:05)
--- NOTE | 2019-11-05 14:48 | NUR ---
Initial: patient eating poorly, average PO 0-25% renal/carb controlled diet advanced two days ago, previously on clear liquid diet. Not meeting nutrition needs for at least 4 days. Last BM 10/31, receiving prn pain medication, no bowel care given, likely constipated. Has increased protein and calorie needs r/t ESRD and hemodialysis three times per week. S/p aspiration of fluid right right hip per MD note. Consumed the ensure high protein at three meals, 50% and 100% twice. Patient and seen at bedside, patient was sleeping and spoke with . His reports his appetite is actually improving and almost ate all of his lunch today. States at home he takes colace every morning. Noted patient not receiving colace, notified bedside RN and recommended bowel care. Provided RD contact information to , reports no LDAs except dislikes fish, no reported chewing/swallowing difficulty. Rec: 1. continue carb controlled/renal diet 2. ensure high protein TIDWM 3. routine bowel care 4. weight per rx Addendum: 11/05/19 at [address] Amended: Links added.
[2019-11-05 15:00] VITALS: BP 140/86
--- NOTE | 2019-11-05 15:26 | NUR ---
Orders for colace put in per Dr. Berry.
[2019-11-05 18:00] VITALS: BP 139/86
--- NOTE | 2019-11-05 18:08 | NUR ---
Patient in room PCU 3028. I have received report from Harmony KING and had the opportunity to ask questions and assume patient care.
--- NOTE | 2019-11-05 18:25 | NUR ---
Problems reprioritized. Patient report given, questions answered & plan of care reviewed with CHRISTINE Chang. Patient stable at transfer of care.
[2019-11-05] MEDS: docusate sod 100mg capsule PO SCH (20:16)
[2019-11-05] MEDS: Melatonin 3mg tablet PO SCH (20:18)
[2019-11-05] MEDS: gabapentin 400mg capsule PO SCH (20:18)
[2019-11-05] MEDS ORDERED: warfarin 3mg tablet PO ONE (21:00)
[2019-11-05 22:00] VITALS: BP 155/81
[2019-11-06 02:00] VITALS: BP 151/83
[2019-11-06] MEDS: HYDROmorphone 1 mg/ml syringe IV PRN ×2 (02:09→11:00)
--- NOTE | 2019-11-06 02:10 | NUR ---
pt reported pain of 8/10 in right hip, pt refused norco, per pt it does not work for him, per pt dilaudid is the only medication which works, pt educated about pain control goals and medication regimen.
[2019-11-06] MEDS ORDERED: EXENATIDE 10 MCG SQ SCH (04:50)
[2019-11-06 05:53] LABS: BASOPHILS % (AUTO) 0.7 % (0-1); EOSINOPHILS # (AUTO) 0.3 X10'3 (0-0.9); EOSINOPHILS % (AUTO) 6.5 % (0-6); HEMATOCRIT 23.2 % (42.0-52.0); HEMOGLOBIN 7.6 g/dl (14.0-17.9); LYMPHOCYTES # (AUTO) 0.8 X10'3 (1.1-4.8); LYMPHOCYTES % (AUTO) 17.8 % (21-51); MEAN CORPUSCULAR HGB CONC 32.8 g/dL (33.0-36.5); MEAN CORPUSCULAR VOLUME 88.4 FL (78-98); MEAN PLATELET VOLUME 7.4 FL (7.4-10.4); MONOCYTES # (AUTO) 0.7 X10'3 (0-0.9); NEUTROPHILS # (AUTO) 2.5 X10'3 (1.8-7.7); PLATELET COUNT 114 X10'3 (140-440); RED BLOOD COUNT 2.63 X10'6 (4.70-6.10); RED CELL DISTRIBUTION WIDTH 22.2 % (11.5-14.5); WHITE BLOOD COUNT 4.3 X10'3 (4.5-11.0)
--- NOTE | 2019-11-06 06:17 | NUR ---
Problems reprioritized. Patient report given, questions answered & plan of care reviewed with Harmony KING.
[2019-11-06 06:22] LABS: ALANINE AMINOTRANSFERASE 8 U/L (12-78); ALBUMIN 2.5 G/DL (3.4-5.0); ALBUMIN/GLOBULIN RATIO 0.9 (1.1-1.5); ALKALINE PHOSPHATASE 59 IU/L (46-116); ANION GAP 8 (8-16); ASPARTATE AMINO TRANSFERASE 19 U/L (10-37); BILIRUBIN,TOTAL 0.8 MG/DL (0.1-1.0); BLOOD UREA NITROGEN 47 MG/DL (7-18); BUN/CREATININE RATIO 6.6 (5.4-32.0); CALCIUM 8.3 MG/DL (8.5-10.1); CHLORIDE 103 MMOL/L (99-107); GLUCOSE 144 MG/DL (70-104); PHOSPHORUS 4.2 MG/DL (2.3-4.5); POTASSIUM 4.1 MMOL/L (3.5-5.1); SODIUM 140 MMOL/L (135-145); TOTAL CARBON DIOXIDE 28.7 MMOL/L (24-32); TOTAL PROTEIN 5.2 G/DL (6.4-8.2); VANCOMYCIN,RANDOM 18.9 UG/ML; eGFR 8 ML/MIN
--- NOTE | 2019-11-06 06:34 | NUR ---
Patient in room PCU 3028. I have received report from CHRISTINE Chang and had the opportunity to ask questions and assume patient care. Patient asleep in bed and in no acute distress.
[2019-11-06 07:00] VITALS: BP 155/81
[2019-11-06 07:41] LABS: LARGE PLATELETS FEW; PLATELET ESTIMATE DECREASED
[2019-11-06 07:42] LABS: ANISOCYTOSIS 3+; HYPOCHROMASIA 1+; POIKILOCYTOSIS 1+; POLYCHROMASIA 1+
[2019-11-06] MEDS: aspirin 81mg tab.chew PO SCH (07:43)
[2019-11-06] MEDS: cloNIDine 0.1 mg tablet PO SCH ×2 (07:44→14:39)
[2019-11-06] MEDS: docusate sod 100mg capsule PO SCH (07:45)
[2019-11-06] MEDS: FLUoxetine 20mg capsule PO SCH (07:45)
[2019-11-06] MEDS: tamsulosin 0.4mg capsule PO SCH (07:45)
[2019-11-06] MEDS: lactobacillus rhamnosus 10,000 MMU CELLS/CAPSULE PO SCH (07:45)
[2019-11-06] MEDS: amLODIPine 5mg tablet PO SCH (07:45)
[2019-11-06] MEDS: duloxetine 30mg CAPSULE.DR PO SCH (07:46)
[2019-11-06] MEDS: atorvastatin 20mg tablet PO SCH (07:46)
[2019-11-06] MEDS: metoprolol tartrate 25mg tablet PO SCH (07:47)
[2019-11-06] MEDS: finasteride 5mg tablet PO SCH (07:48)
[2019-11-06] MEDS ORDERED: heparin 1,000 units/ml 10ml inj HE ONE ×2 (08:00)
[2019-11-06] MEDS ORDERED: normal saline 1000ml 250 ML IV PRN (08:00)
[2019-11-06] MEDS: lactose-reduced food (Ensure High Protein) 237ml bottle PO SCH ×2 (08:00→13:00)
[2019-11-06] MEDS ORDERED: heparin 1,000unit/ml 10ml vial 10 ML IV ONE (08:00)
[2019-11-06] MEDS ORDERED: epoetin 20,000 units/ml inj IV ONE (08:00)
[2019-11-06 11:00] VITALS: BP 139/83
[2019-11-06] MEDS: HYDROcodone/acetaminophen 10/325mg tab PO PRN ×2 (14:32→19:23)
[2019-11-06 15:00] VITALS: BP 185/106
[2019-11-06] MEDS: hydrALAZINE 20mg/ml inj. IV PRN (15:16)
--- NOTE | 2019-11-06 18:08 | NUR ---
Problems reprioritized. Patient report given, questions answered & plan of care reviewed with CHRISTINE Chang. Patient stable at transfer of care.
--- NOTE | 2019-11-06 19:35 | NUR ---
Pt DC home with , DC education discussed with and pt all questions asked pt stable at time of DC.
[2019-11-06] MEDS ORDERED: warfarin 3mg tablet PO ONE (21:00)
== END 2019-11-06 19:35 | disposition home or self-care (01) | DRG 299 ==
LOC: ER 16:50 → ED HOLD 21:33 → EDBEDREQ 22:05 → PCU 3S 22:49
PROVIDERS: ADMIT Internal Medicine Critical Care Medicine; ATTEND Internal Medicine Critical Care Medicine
PROC: 5A1D70Z Performance of Urinary Filtration, Intermittent, Less than 6 Hours Per Day (ICD-10-PCS; principal; 2019-11-02)
PROC: 5A1D70Z Performance of Urinary Filtration, Intermittent, Less than 6 Hours Per Day (ICD-10-PCS; 2019-11-04)
PROC: 5A1D70Z Performance of Urinary Filtration, Intermittent, Less than 6 Hours Per Day (ICD-10-PCS; 2019-11-06)
DX: I82.621 Acute embolism and thrombosis of deep veins of right upper extremity (principal); G93.41 Metabolic encephalopathy; N18.6 End stage renal disease; E87.2 Acidosis; Z88.8 Allergy status to other drugs, medicaments and biological substances; E11.22 Type 2 diabetes mellitus with diabetic chronic kidney disease; I48.91 Unspecified atrial fibrillation; M19.90 Unspecified osteoarthritis, unspecified site; G89.29 Other chronic pain; M54.9 Dorsalgia, unspecified; D64.9 Anemia, unspecified; F32.9 Major depressive disorder, single episode, unspecified; Z91.013 Allergy to seafood; Z86.73 Personal history of transient ischemic attack (TIA), and cerebral infarction without residual deficits; Z82.49 Family history of ischemic heart disease and other diseases of the circulatory system; Z99.2 Dependence on renal dialysis; Z87.891 Personal history of nicotine dependence
CPT/HCPCS: 10160; 36415; 71045; 73721; 75989; 80053; 80202; 82948; 83605; 83735; 84100; 84145; 85025; 85610; 85651; 86140; 87040; 87070; 87075; 87081; 87102; 93970; 99285; G0257; G0378; J0360; J0713; J1170; J1644; J2250; J3010; J3370; Q4081

== ENCOUNTER 2019-12-06 14:11 | Inpatient (IN) | payer BC, MEDICARE ==
[~2019-12-06] VITALS: Ht 188 cm; Wt 112.1 kg
[2019-12-06] VITALS (9 sets, daily range): BP systolic 95–148; BP diastolic 49–74
[~2019-12-06 14:11] MED LIST changes: +AMLO5TAB96 PO; -ASPI-1071 PO; +ASPI-1265 PO; -CLON0.1T2 PO; +CLON0.2T PO; -LACT10SO32 PO; -NOR5T PO; -RIVA15TA PO; -RIVA20TA PO; +WARF-55 PO; +etomidate 2mg/ml inj. ONE; +rocuronium 10mg/ml inj IV ONE
[2019-12-06] MEDS ORDERED: piperacillin/tazo 3.375gm/50ml 50 ML IV ONE (14:45)
[2019-12-06] MEDS ORDERED: FENTANYL-0.9 % NACL/PF 100 ML IV PRN (14:45)
[2019-12-06] MEDS ORDERED: normal saline 1000ML IV soln IV ONE (14:45)
[2019-12-06] MEDS ORDERED: vancomycin/NS 1 GM ADD-VANTAGE 250 ML IV ONE (14:45)
--- NOTE | 2019-12-06 14:51 | NUR ---
ETT placement verified by Dr Perdomo at this time.
[2019-12-06] MEDS ORDERED: midazolam 100mg in NS 100ml 100 ML IV PRN (14:58)
[2019-12-06] MEDS ORDERED: NORepinephrine 8mg/ 250ml NS 250 ML IV PRN (14:58)
[2019-12-06] MEDS ORDERED: acetaminophen 325mg tablet PO PRN ×2 (15:00)
[2019-12-06] MEDS ORDERED: ondansetron/PF 4mg/2ml inj IV PRN (15:00)
[2019-12-06] MEDS ORDERED: fentaNYL/PF 50MCG/1 ML 2ML syringe IV PRN (15:00)
[2019-12-06] MEDS ORDERED: ipratropium/albuterol 3ml nebule NEB PRN (15:00)
[2019-12-06] MEDS ORDERED: midazolam 2 mg/2 ml injection IV ONE (15:00)
[2019-12-06] MEDS ORDERED: LIDOcaine 2% 10ml TOPICAL JELLY (Urojet) TP ONE (15:00)
[2019-12-06 15:04] LABS: BASOPHILS # (AUTO) 0.1 X10'3 (0-0.2); BASOPHILS % (AUTO) 0.5 % (0-1); EOSINOPHILS # (AUTO) 0.1 X10'3 (0-0.9); HEMATOCRIT 32.2 % (42.0-52.0); HEMOGLOBIN 8.5 g/dl (14.0-17.9); LYMPHOCYTES # (AUTO) 2.3 X10'3 (1.1-4.8); LYMPHOCYTES % (AUTO) 18.1 % (21-51); MEAN CORPUSCULAR HEMOGLOBIN 27.5 PG (27.0-31.0); MEAN CORPUSCULAR HGB CONC 26.4 g/dL (33.0-36.5); MEAN PLATELET VOLUME 8.2 FL (7.4-10.4); MONOCYTES # (AUTO) 1.4 X10'3 (0-0.9); MONOCYTES % (AUTO) 11.1 % (2-12); NEUTROPHILS # (AUTO) 8.6 X10'3 (1.8-7.7); NEUTROPHILS % (AUTO) 69.3 % (42-75); PLATELET COUNT 310 X10'3 (140-440); RED CELL DISTRIBUTION WIDTH 23.7 % (11.5-14.5); WHITE BLOOD COUNT 12.5 X10'3 (4.5-11.0)
[2019-12-06 15:05] LABS: PARTIAL THROMBOPLASTIN TIME 46 SECONDS (22-32)
[2019-12-06] MEDS: NORepinephrine 8mg/ 250ml NS 250 ML IV SCH ×3 (15:06→23:01)
[2019-12-06 15:08] LABS: ALANINE AMINOTRANSFERASE 10 U/L (12-78); ALBUMIN 3.3 G/DL (3.4-5.0); ALBUMIN/GLOBULIN RATIO 1.1 (1.1-1.5); ALKALINE PHOSPHATASE 63 IU/L (46-116); ASPARTATE AMINO TRANSFERASE 27 U/L (10-37); BILIRUBIN,TOTAL 0.5 MG/DL (0.1-1.0); BLOOD UREA NITROGEN 29 MG/DL (7-18); BUN/CREATININE RATIO 3.2 (5.4-32.0); CALCIUM 9.2 MG/DL (8.5-10.1); CHLORIDE 98 MMOL/L (99-107); CREATININE 9.06 MG/DL (0.60-1.10); GLUCOSE 83 MG/DL (70-104); MAGNESIUM 2.6 MG/DL (1.5-2.4); POTASSIUM 4.2 MMOL/L (3.5-5.1); SODIUM 142 MMOL/L (135-145); TOTAL PROTEIN 6.2 G/DL (6.4-8.2); eGFR 6 ML/MIN
[2019-12-06] MEDS: midazolam 100mg in NS 100ml 100 ML IV PRN (15:09)
[2019-12-06 15:12] LABS: ANION GAP 39 (8-16); TOTAL CARBON DIOXIDE < 5 MMOL/L (24-32)
[2019-12-06] MEDS ORDERED: dextrose 50%-water 50ml dispensing syringe IV ONE (15:15)
[2019-12-06 15:18] LABS: CLARITY,URINE CLOUDY (Clear); COLOR,URINE YELLOW (Yellow); GLUCOSE, URINE NEGATIVE (Neg); KETONES,URINE 15 mg/dl (Neg); LEUKOCYTE ESTERASE ,URINE NEGATIVE (Neg); NITRITES, URINE NEGATIVE (Neg); OCCULT BLOOD,URINE TRACE-INTACT (Neg); PROTEIN,URINE >=300 mg/dl (Neg); UA COLLECTION TYPE FOLEY CATH; UROBILINOGEN,URINE 0.2 E.U/dL (0.2-1.0)
[2019-12-06] MEDS: FENTANYL-0.9 % NACL/PF 100 ML IV PRN (15:22)
[2019-12-06] MEDS ORDERED: sodium bicarbonate (8.4%) 1 mEq/ml syringe IV ONE (15:25)
[2019-12-06 15:33] LABS: SQUAMOUS EPITHELIAL CELL,UR FEW /LPF (FEW)
[2019-12-06] MEDS ORDERED: TRAM50TA2 PO (15:33)
[2019-12-06] MEDS ORDERED: PIOG1TAB30 PO (15:33)
[2019-12-06] MEDS ORDERED: LIRA0.6P SQ (15:33)
[2019-12-06] MEDS ORDERED: OMEP40CA13 PO (15:33)
[2019-12-06] MEDS ORDERED: CHLO25TA10 PO (15:33)
[2019-12-06 15:34] LABS: RENAL CELLS, URINE FEW /HPF; TRANSITIONAL EPI CELLS,URINE MODERATE /HPF
[2019-12-06 15:35] LABS: RBC,URINE 0-2 /HPF (0-2); WBC,URINE 0-4 /HPF (0-4)
[2019-12-06] MEDS ORDERED: etomidate 2mg/ml inj. IV ONE (15:35)
[2019-12-06] MEDS ORDERED: VECuronium br 10mg inj. IV ONE (15:35)
[2019-12-06 15:37] LABS: AMORPHOUS URATES 4+; BACTERIA,URINE NONE SEEN /HPF (Neg)
[2019-12-06] MEDS ORDERED: normal saline 1000ml 250 ML IV PRN (15:40)
[2019-12-06] MEDS ORDERED: epoetin 20,000 units/ml inj IV ONE (15:40)
[2019-12-06] MEDS ORDERED: normal saline 1000ML IV soln IVB ONE (15:40)
[2019-12-06] MEDS ORDERED: normal saline 1000ml 100 ML IV PRN (15:40)
[2019-12-06 15:43] LABS: TOTAL CELLS COUNTED 100
[2019-12-06 15:44] LABS: ANISOCYTOSIS 3+; PLATELET ESTIMATE NORMAL
[2019-12-06] MEDS ORDERED: heparin 1,000 units/ml 10ml inj HE ONE ×2 (15:45)
[2019-12-06 15:46] LABS: BURR CELLS 1+; TEAR DROP CELLS 1+
[2019-12-06 15:47] LABS: HYPOCHROMASIA 2+; POIKILOCYTOSIS 2+; POLYCHROMASIA 1+; SCHISTOCYTES 1+; TARGET CELLS FEW; TOXIC VACUOLATION FEW
[2019-12-06 15:49] LABS: ELLIPTOCYTES FEW; SPHEROCYTES 1+
[2019-12-06 15:50] LABS: ACANTHOCYTES 2+
--- NOTE | 2019-12-06 16:00 | NUR ---
Pt. arrived from Ed via gurney. Intubated and sedated. CVP hooked up. Pt. hooked up to VS monitor. Pt. r/o COVID 19. VSS. Levo, Fentanyl and Versed infusing through CVL RIJ. TDC to right chest. HD here to dialyze pt. now.
[2019-12-06 17:31] LABS: ABG BASE EXCESS -28.3 mmol/L (-2.0-3.0); ABG HCO3 5.1 mmol/L (22.0-26.0); ABG OXYGEN SATURATION 94.8 % (95-98); ABG PCO2 (T) 32.7 mmHg (35.0-45.0); ABG PH (T) 6.807 (7.350-7.450); ABG PO2 (T) 102.5 mmHg (83-108); ALLEN'S TEST POSITIVE; FCOHb 0.3 % (0.5-1.5); FLOW 60 L/min; FMetHb 0.3 % (0.3-1.12); FO2Hb 94.2 % (94-100); PEEP 5 cm H2O; RESPIRATORY RATE 20 b/min; TIDAL VOLUME 550 mL; TOTAL HEMOGLOBIN 10.3 G/dl (14.0-17.9)
[2019-12-06 19:20] LABS: ABG BASE EXCESS -20.8 mmol/L (-2.0-3.0); ABG HCO3 8.5 mmol/L (22.0-26.0); ABG OXYGEN SATURATION 90.1 % (95-98); ABG PCO2 (T) 30.6 mmHg (35.0-45.0); ABG PH (T) 7.055 (7.350-7.450); ABG PO2 (T) 61.7 mmHg (83-108); ALLEN'S TEST POSITIVE; FCOHb 0.3 % (0.5-1.5); FMetHb 0.1 % (0.3-1.12); FO2Hb 89.7 % (94-100); PEEP 5 cm H2O; RESPIRATORY RATE 24 b/min; TIDAL VOLUME 550 mL; TOTAL HEMOGLOBIN 10.2 G/dl (14.0-17.9)
[2019-12-06 19:25] LABS: OXYGEN SATURATION (MIXED VEN) 78.7 % (60-80); PO2 MIXED VENOUS (TEMP COR) 43.8 mmHg (35-46)
[2019-12-06] MEDS: famotidine/PF 10 mg/ml inj IV SCH (19:36)
[2019-12-06] MEDS: docusate sod 100mg capsule PO SCH (19:37)
[2019-12-06] MEDS: heparin, porcine 5000 units/ml vial SQ SCH (19:37)
[2019-12-06] MEDS: ipratropium/albuterol 3ml nebule NEB SCH ×2 (19:43→23:24)
[2019-12-07] VITALS (24 sets, daily range): BP systolic 115–164; BP diastolic 59–84
[2019-12-07 02:22] LABS: BASOPHILS # (AUTO) 0.1 X10'3 (0-0.2); BASOPHILS % (AUTO) 0.3 % (0-1); EOSINOPHILS % (AUTO) 0 % (0-6); HEMATOCRIT 30.7 % (42.0-52.0); HEMOGLOBIN 8.6 g/dl (14.0-17.9); LYMPHOCYTES # (AUTO) 0.7 X10'3 (1.1-4.8); LYMPHOCYTES % (AUTO) 4.4 % (21-51); MEAN CORPUSCULAR HEMOGLOBIN 27.3 PG (27.0-31.0); MEAN CORPUSCULAR HGB CONC 28.1 g/dL (33.0-36.5); MEAN CORPUSCULAR VOLUME 97.2 FL (78-98); MEAN PLATELET VOLUME 7.9 FL (7.4-10.4); MONOCYTES # (AUTO) 1.2 X10'3 (0-0.9); MONOCYTES % (AUTO) 8.1 % (2-12); NEUTROPHILS # (AUTO) 13.2 X10'3 (1.8-7.7); NEUTROPHILS % (AUTO) 87.2 % (42-75); PLATELET COUNT 285 X10'3 (140-440); RED BLOOD COUNT 3.15 X10'6 (4.70-6.10); RED CELL DISTRIBUTION WIDTH 23.5 % (11.5-14.5); WHITE BLOOD COUNT 15.1 X10'3 (4.5-11.0)
[2019-12-07 02:39] LABS: ALANINE AMINOTRANSFERASE 13 U/L (12-78); ALBUMIN 3.2 G/DL (3.4-5.0); ALBUMIN/GLOBULIN RATIO 1.1 (1.1-1.5); ALKALINE PHOSPHATASE 72 IU/L (46-116); ANION GAP 37 (8-16); ASPARTATE AMINO TRANSFERASE 40 U/L (10-37); BILIRUBIN,TOTAL 0.6 MG/DL (0.1-1.0); BLOOD UREA NITROGEN 17 MG/DL (7-18); BUN/CREATININE RATIO 3.2 (5.4-32.0); CHLORIDE 95 MMOL/L (99-107); CREATININE 5.37 MG/DL (0.60-1.10); GLUCOSE 168 MG/DL (70-104); MAGNESIUM 1.9 MG/DL (1.5-2.4); PHOSPHORUS 5.5 MG/DL (2.3-4.5); POTASSIUM 4.2 MMOL/L (3.5-5.1); SODIUM 138 MMOL/L (135-145); eGFR 11 ML/MIN
[2019-12-07 02:43] LABS: TOTAL CARBON DIOXIDE 6.3 MMOL/L (24-32)
[2019-12-07] MEDS: ipratropium/albuterol 3ml nebule NEB SCH ×6 (03:06→23:08)
[2019-12-07 03:26] LABS: ABG HCO3 3.8 mmol/L (22.0-26.0); ABG OXYGEN SATURATION 96.2 % (95-98); ABG PCO2 (T) 14.5 mmHg (35.0-45.0); ABG PH (T) 7.036 (7.350-7.450); ABG PO2 (T) 88.6 mmHg (83-108); ALLEN'S TEST POSITIVE; FCOHb 0.3 % (0.5-1.5); FMetHb 0.3 % (0.3-1.12); FO2Hb 95.6 % (94-100); PATIENT TEMPERATURE 36.8; PEEP 5 cm H2O; TOTAL HEMOGLOBIN 9.6 G/dl (14.0-17.9)
[2019-12-07 04:37] LABS: ANISOCYTOSIS 3+; PLATELET ESTIMATE NORMAL; TOTAL CELLS COUNTED 100
[2019-12-07 04:38] LABS: POIKILOCYTOSIS 1+
--- NOTE | 2019-12-07 06:12 | NUR ---
Patient in room ICU 2046. I have received report from Antonia KING and had the opportunity to ask questions and assume patient care. Addendum: 12/07/19 at 0612 by Korin Villa RN Amended: Links added.
[2019-12-07] MEDS: famotidine/PF 10 mg/ml inj IV SCH ×2 (07:24→20:09)
[2019-12-07] MEDS: heparin, porcine 5000 units/ml vial SQ SCH ×2 (07:24→20:08)
[2019-12-07] MEDS: FENTANYL-0.9 % NACL/PF 100 ML IV PRN (07:25)
[2019-12-07] MEDS: docusate sod 100mg capsule PO SCH (08:00)
--- NOTE | 2019-12-07 09:32 | NUR ---
PCXR taken now. Weaning off Levo for MAP of 85.
[2019-12-07] MEDS ORDERED: hydrocortisone sod succ/PF 100mg/2ml inj. IV SCH (09:55)
[2019-12-07 09:56] LABS: HEMOGLOBIN A1C 3.7 % (4.5-6.2)
[2019-12-07 11:31] LABS: ABG BASE EXCESS -20.4 mmol/L (-2.0-3.0); ABG HCO3 5.6 mmol/L (22.0-26.0); ABG OXYGEN SATURATION 98.1 % (95-98); ABG PCO2 (T) 14.9 mmHg (35.0-45.0); ABG PH (T) 7.196 (7.350-7.450); ALLEN'S TEST POSITIVE; FCOHb 0.3 % (0.5-1.5); FMetHb 0.3 % (0.3-1.12); FO2Hb 97.5 % (94-100); PEEP 5 cm H2O; TOTAL HEMOGLOBIN 9.4 G/dl (14.0-17.9)
--- NOTE | 2019-12-07 11:40 | NUR ---
RT attempted weaning parameters on pt. Pt. awake and nods or shakes head to questions. Unsure if pt. understands the weaning tests due to the PAPR mask restricts clear communication. Dr. Berry notified of results of ABG and weaning parameters. Dr. Bautista in to see pt. She spoke with Dr. Berry re. pt. Levo. off now.
--- NOTE | 2019-12-07 12:33 | NUR ---
Initial: Pt admitted with acute respiratory failure, lactic acidosis, sepsis, and JESSICA. Pt dialysis dependent and to continue dialysis at this time per MD note. Lactic acidosis improving, pt passed weaning parameters and nearly off of pressors per MD note. TF recommendations below for if prolonged intubation and to receive nutrition support. No documented LBM, pt with routine bowel care. Will continue to follow closely. Recommendations: 1) IF to receive EN, continuous Vital High Protein with goal rate of 90 mL/hr to provide: 2160 mL total volume/day, 2160 kcal, 189 g protein, 1806 mL water 2) IF EN, additional water flush per MD d/t pt on dialysis 3) IF EN, prealbumin q /; daily weights 4) Advance diet to renal as medically indicated following extubation 5) Phosphorus binder with initiation of nutrition 6) Routine bowel care Addendum: 12/07/19 at [address] Amended: Links added.
--- NOTE | 2019-12-07 12:38 | NUR ---
Several attempts to insert OGT unsuccessful yesterday and today. Tried different styles and sizes of [place] sumps. Pt. has 1300 scheduled Gabapentin.
[2019-12-07] MEDS: gabapentin 400mg capsule PO SCH ×2 (13:00→20:09)
[2019-12-07] MEDS ORDERED: vancomycin/NS 1 GM ADD-VANTAGE 250 ML X 1 DOSE IV PRN (14:10)
[2019-12-07] MEDS ORDERED: vancomycin/NS 1 GM ADD-VANTAGE 250 ML X 1 DOSE IV ONE (15:00)
--- NOTE | 2019-12-07 15:28 | NUR ---
Pt. dc'd from isolation as his COVID is negative per Leila Villaseñor RN.
[2019-12-07] MEDS: Melatonin 3mg tablet PO SCH (20:09)
[2019-12-07] MEDS: mineral oil/petrolatum ophthal oint EACHEYE SCH (20:09)
[2019-12-08] VITALS (23 sets, daily range): BP systolic 150–176; BP diastolic 76–105
[2019-12-08 02:16] LABS: BASOPHILS % (AUTO) 0.2 % (0-1); EOSINOPHILS % (AUTO) 0 % (0-6); HEMATOCRIT 26.9 % (42.0-52.0); HEMOGLOBIN 8.1 g/dl (14.0-17.9); LYMPHOCYTES # (AUTO) 0.6 X10'3 (1.1-4.8); LYMPHOCYTES % (AUTO) 5.5 % (21-51); MEAN CORPUSCULAR HEMOGLOBIN 27.7 PG (27.0-31.0); MEAN CORPUSCULAR HGB CONC 30.2 g/dL (33.0-36.5); MEAN CORPUSCULAR VOLUME 91.8 FL (78-98); MEAN PLATELET VOLUME 7.7 FL (7.4-10.4); MONOCYTES % (AUTO) 9.4 % (2-12); NEUTROPHILS # (AUTO) 8.7 X10'3 (1.8-7.7); NEUTROPHILS % (AUTO) 84.9 % (42-75); PLATELET COUNT 193 X10'3 (140-440); RED BLOOD COUNT 2.93 X10'6 (4.70-6.10); RED CELL DISTRIBUTION WIDTH 23.9 % (11.5-14.5); WHITE BLOOD COUNT 10.3 X10'3 (4.5-11.0)
[2019-12-08] MEDS: mineral oil/petrolatum ophthal oint EACHEYE SCH ×4 (02:21→19:33)
[2019-12-08 02:47] LABS: ALANINE AMINOTRANSFERASE 12 U/L (12-78); ALBUMIN 3.1 G/DL (3.4-5.0); ALBUMIN/GLOBULIN RATIO 1.2 (1.1-1.5); ALKALINE PHOSPHATASE 60 IU/L (46-116); ANION GAP 34 (8-16); ASPARTATE AMINO TRANSFERASE 35 U/L (10-37); BILIRUBIN,TOTAL 0.6 MG/DL (0.1-1.0); BLOOD UREA NITROGEN 28 MG/DL (7-18); CALCIUM 7.7 MG/DL (8.5-10.1); CHLORIDE 94 MMOL/L (99-107); CREATININE 7.05 MG/DL (0.60-1.10); GLUCOSE 116 MG/DL (70-104); MAGNESIUM 1.8 MG/DL (1.5-2.4); PHOSPHORUS 6.6 MG/DL (2.3-4.5); POTASSIUM 4.9 MMOL/L (3.5-5.1); SODIUM 137 MMOL/L (135-145); TOTAL PROTEIN 5.7 G/DL (6.4-8.2); VANCOMYCIN,RANDOM 17.5 UG/ML; eGFR 8 ML/MIN
[2019-12-08 02:48] LABS: TOTAL CARBON DIOXIDE 9.3 MMOL/L (24-32)
[2019-12-08 03:24] LABS: PLATELET ESTIMATE NORMAL
[2019-12-08 03:25] LABS: ANISOCYTOSIS 3+; POIKILOCYTOSIS 1+
[2019-12-08 03:45] LABS: ABG HCO3 7.9 mmol/L (22.0-26.0); ABG OXYGEN SATURATION 98.4 % (95-98); ABG PCO2 (T) 19.9 mmHg (35.0-45.0); ABG PH (T) 7.217 (7.350-7.450); ABG PO2 (T) 119.6 mmHg (83-108); ALLEN'S TEST POSITIVE; FCOHb 0.3 % (0.5-1.5); FMetHb 0.1 % (0.3-1.12); PATIENT TEMPERATURE 37.1; PEEP 5 cm H2O; TOTAL HEMOGLOBIN 9.2 G/dl (14.0-17.9)
--- NOTE | 2019-12-08 06:15 | NUR ---
Patient in room ICU 2044. I have received report from cnc machinist 2nd shift and had the opportunity to ask questions and assume patient care.
[2019-12-08] MEDS ORDERED: pantoprazole 40mg Tablet.DR PO SCH (07:30)
[2019-12-08] MEDS ORDERED: metFORMIN 850mg tablet PO SCH (07:30)
[2019-12-08] MEDS: cefTAZidime inj. 1 GM in normal saline 100ml IV soln 100 ML IV SCH (07:56)
[2019-12-08] MEDS: docusate sodium 100mg/10ml UD cup PO SCH ×2 (07:57→19:32)
[2019-12-08] MEDS: chlorthalidone 25mg tablet PO SCH (07:57)
[2019-12-08] MEDS: gabapentin 400mg capsule PO SCH ×3 (07:58→19:32)
[2019-12-08] MEDS: tamsulosin 0.4mg capsule PO SCH (07:58)
[2019-12-08] MEDS: atorvastatin 20mg tablet PO SCH (07:58)
[2019-12-08] MEDS: aspirin 81mg tab.chew PO SCH (07:59)
[2019-12-08] MEDS: FLUoxetine 20mg capsule PO SCH (07:59)
[2019-12-08] MEDS ORDERED: epoetin 20,000 units/ml inj IV ONE (08:00)
[2019-12-08] MEDS ORDERED: METFORMIN HCL PO SCH (08:00)
[2019-12-08] MEDS: pioglitazone 15mg tablet PO SCH (08:00)
[2019-12-08] MEDS ORDERED: normal saline 1000ml 250 ML IV PRN (08:00)
[2019-12-08] MEDS: LIRAGLUTIDE 0.6 MG/0.1 ML SQ SCH (08:00)
[2019-12-08] MEDS ORDERED: heparin 1,000 units/ml 10ml inj HE ONE ×2 (08:00)
[2019-12-08] MEDS ORDERED: PIOGLITAZONE HCL PO SCH (08:00)
[2019-12-08] MEDS ORDERED: [UNRECOGNIZED DRUG - OTHER] PO SCH (08:00)
[2019-12-08] MEDS ORDERED: heparin 1,000unit/ml 10ml vial 10 ML IV ONE (08:00)
[2019-12-08] MEDS ORDERED: finasteride 5mg tablet PO SCH (08:00)
[2019-12-08] MEDS: heparin, porcine 5000 units/ml vial SQ SCH ×3 (08:00→19:39)
[2019-12-08] MEDS ORDERED: potassium chloride 10mEq ER tablet PO SCH (08:00)
[2019-12-08] MEDS: duloxetine 30mg CAPSULE.DR PO SCH (08:00)
[2019-12-08] MEDS: NORepinephrine 8mg/ 250ml NS 250 ML IV SCH ×2 (08:47→22:46)
[2019-12-08] MEDS: ipratropium/albuterol 3ml nebule NEB SCH ×5 (08:48→23:23)
--- NOTE | 2019-12-08 12:01 | NUR ---
no SVN tx @ this time. No Shortness of breath noted. pt hr 160+ rn padma aware Addendum: 12/08/19 at 1202 by Louise [address] RT Amended: Links added.
[2019-12-08] MEDS ORDERED: diltiazem 5mg/ml 5ml inj. IV ONE ×2 (12:40→15:35)
--- NOTE | 2019-12-08 12:48 | NUR ---
F/u: Noted pt A1C 3.7 w/ hx T2DM and prior A1C 6.0 hx; current likely error. Addendum: 12/08/19 at [address] Amended: Links added.
[2019-12-08] MEDS: famotidine/PF 10 mg/ml inj IV SCH ×2 (13:04→19:32)
[2019-12-08] MEDS: midazolam 100mg in NS 100ml 100 ML IV PRN (14:08)
[2019-12-08] MEDS: FENTANYL-0.9 % NACL/PF 100 ML IV PRN (14:09)
[2019-12-08] MEDS: diltiazem-NS 100mg/100ml 100 ML IV SCH (16:00)
--- NOTE | 2019-12-08 18:06 | NUR ---
Problems reprioritized. Patient report given, questions answered & plan of care reviewed with oncoming shift.
[2019-12-08] MEDS: Melatonin 3mg tablet PO SCH (21:00)
[2019-12-08] MEDS ORDERED: warfarin 5mg tablet PO SCH (21:00)
--- NOTE | 2019-12-08 21:45 | NUR ---
Patient in room ICU 2044. I have received report from Rhonda KING, and had the opportunity to ask questions and assume patient care.
[2019-12-09] VITALS (23 sets, daily range): BP systolic 149–184; BP diastolic 81–101
[2019-12-09] MEDS: diltiazem-NS 100mg/100ml 100 ML IV SCH (01:34)
[2019-12-09] MEDS: mineral oil/petrolatum ophthal oint EACHEYE SCH ×4 (02:37→20:19)
[2019-12-09] MEDS: ipratropium/albuterol 3ml nebule NEB SCH ×6 (02:43→23:12)
[2019-12-09 02:46] LABS: BASOPHILS % (AUTO) 0.3 % (0-1); EOSINOPHILS % (AUTO) 0.1 % (0-6); HEMATOCRIT 26.5 % (42.0-52.0); HEMOGLOBIN 8.5 g/dl (14.0-17.9); LYMPHOCYTES # (AUTO) 0.3 X10'3 (1.1-4.8); LYMPHOCYTES % (AUTO) 5.2 % (21-51); MEAN CORPUSCULAR HEMOGLOBIN 27.6 PG (27.0-31.0); MEAN CORPUSCULAR VOLUME 86.3 FL (78-98); MEAN PLATELET VOLUME 7.5 FL (7.4-10.4); MONOCYTES # (AUTO) 0.7 X10'3 (0-0.9); MONOCYTES % (AUTO) 11.1 % (2-12); NEUTROPHILS # (AUTO) 4.9 X10'3 (1.8-7.7); NEUTROPHILS % (AUTO) 83.3 % (42-75); PLATELET COUNT 117 X10'3 (140-440); RED BLOOD COUNT 3.06 X10'6 (4.70-6.10); WHITE BLOOD COUNT 5.9 X10'3 (4.5-11.0)
[2019-12-09 03:01] LABS: ABG BASE EXCESS -1.7 mmol/L (-2.0-3.0); ABG HCO3 23.1 mmol/L (22.0-26.0); ABG OXYGEN SATURATION 97.5 % (95-98); ABG PCO2 (T) 39.4 mmHg (35.0-45.0); ABG PH (T) 7.387 (7.350-7.450); ABG PO2 (T) 98.1 mmHg (83-108); ALLEN'S TEST POSITIVE; FCOHb 0.3 % (0.5-1.5); FMetHb 0.3 % (0.3-1.12); FO2Hb 96.9 % (94-100); PATIENT TEMPERATURE 37.1; PEEP 5 cm H2O; TOTAL HEMOGLOBIN 9.6 G/dl (14.0-17.9)
[2019-12-09 03:32] LABS: ALANINE AMINOTRANSFERASE 11 U/L (12-78); ALBUMIN 2.8 G/DL (3.4-5.0); ALBUMIN/GLOBULIN RATIO 1.1 (1.1-1.5); ALKALINE PHOSPHATASE 59 IU/L (46-116); ANION GAP 11 (8-16); ASPARTATE AMINO TRANSFERASE 29 U/L (10-37); BILIRUBIN,TOTAL 0.6 MG/DL (0.1-1.0); BLOOD UREA NITROGEN 22 MG/DL (7-18); BUN/CREATININE RATIO 4.3 (5.4-32.0); CALCIUM 8.1 MG/DL (8.5-10.1); CHLORIDE 100 MMOL/L (99-107); CREATININE 5.06 MG/DL (0.60-1.10); GLUCOSE 117 MG/DL (70-104); MAGNESIUM 1.8 MG/DL (1.5-2.4); PHOSPHORUS 3.9 MG/DL (2.3-4.5); SODIUM 137 MMOL/L (135-145); TOTAL CARBON DIOXIDE 26.2 MMOL/L (24-32); TOTAL PROTEIN 5.4 G/DL (6.4-8.2); VANCOMYCIN,RANDOM 13.5 UG/ML; eGFR 12 ML/MIN
[2019-12-09 04:06] LABS: ANISOCYTOSIS 3+; PLATELET ESTIMATE DECREASED
[2019-12-09 04:08] LABS: POIKILOCYTOSIS 1+
--- NOTE | 2019-12-09 06:15 | NUR ---
Patient in room ICU 2044. I have received report from night shift manager and had the opportunity to ask questions and assume patient care.
--- NOTE | 2019-12-09 06:44 | NUR ---
Problems reprioritized. Patient report given, questions answered & plan of care reviewed with Trina KING.
[2019-12-09] MEDS ORDERED: vancomycin/NS 1 GM ADD-VANTAGE 250 ML X 1 DOSE IV ONE (07:25)
[2019-12-09] MEDS: pioglitazone 15mg tablet PO SCH (08:00)
[2019-12-09] MEDS: tamsulosin 0.4mg capsule PO SCH (08:00)
[2019-12-09] MEDS: LIRAGLUTIDE 0.6 MG/0.1 ML SQ SCH (08:00)
[2019-12-09] MEDS: docusate sodium 100mg/10ml UD cup PO SCH ×2 (08:31→20:19)
[2019-12-09] MEDS: aspirin 81mg tab.chew PO SCH (08:31)
[2019-12-09] MEDS: chlorthalidone 25mg tablet PO SCH (08:31)
[2019-12-09] MEDS: gabapentin 400mg capsule PO SCH ×3 (08:31→20:20)
[2019-12-09] MEDS: duloxetine 30mg CAPSULE.DR PO SCH (08:31)
[2019-12-09] MEDS: heparin, porcine 5000 units/ml vial SQ SCH ×2 (08:32→20:19)
[2019-12-09] MEDS: atorvastatin 20mg tablet PO SCH (08:32)
[2019-12-09] MEDS: famotidine/PF 10 mg/ml inj IV SCH ×2 (08:32→20:18)
[2019-12-09] MEDS: cefTAZidime inj. 1 GM in normal saline 100ml IV soln 100 ML IV SCH (08:34)
[2019-12-09] MEDS: FLUoxetine 20mg capsule PO SCH (08:50)
--- NOTE | 2019-12-09 12:17 | NUR ---
TF Consult: Pt to start TF today per city clerk. TF recs below given intubation needs on HD w/ sepsis. Will monitor for TF tolerance. Recommendations: 1) Continuous TF per MD using Vital High Protein with goal rate of 90 mL/hr to provide: 2160 mL total volume/day, 2160 kcal, 189 g protein, 1806 mL water 2) additional water flush per MD on dialysis 3) prealbumin q /; daily weights 4) upon extubation, Advance diet to renal/carb controlled as medically indicated 5) Phosphorus binder with initiation of nutrition on HD 6) Routine bowel care Addendum: 12/09/19 at [address] Amended: Links added.
[2019-12-09] MEDS: NORepinephrine 8mg/ 250ml NS 250 ML IV SCH (12:45)
--- NOTE | 2019-12-09 13:30 | NUR ---
TUBE FEED STARTED PER ORDER
[2019-12-09] MEDS: diltiazem 30mg tablet PO SCH ×2 (13:41→20:19)
[2019-12-09 13:47] LABS: PREALBUMIN 17.8 MG/DL (19-36)
--- NOTE | 2019-12-09 18:04 | NUR ---
Problems reprioritized. Patient report given, questions answered & plan of care reviewed with oncoming shift.
[2019-12-09] MEDS: Melatonin 3mg tablet PO SCH (20:20)
[2019-12-09] MEDS: lactobacillus rhamnosus 10,000 MMU CELLS/CAPSULE PO SCH (20:21)
[2019-12-09] MEDS ORDERED: warfarin 3mg tablet PO ONE (21:00)
[2019-12-09] MEDS ORDERED: warfarin 5mg tablet PO SCH (21:00)
[2019-12-10] VITALS (24 sets, daily range): BP systolic 163–188; BP diastolic 80–126
[2019-12-10] MEDS: NORepinephrine 8mg/ 250ml NS 250 ML IV SCH ×2 (02:44→15:36)
[2019-12-10] MEDS: mineral oil/petrolatum ophthal oint EACHEYE SCH ×4 (02:50→20:07)
[2019-12-10] MEDS: diltiazem 30mg tablet PO SCH ×4 (02:50→20:11)
[2019-12-10] MEDS: ipratropium/albuterol 3ml nebule NEB SCH ×6 (02:59→22:57)
[2019-12-10 03:02] LABS: BASOPHILS % (AUTO) 0.3 % (0-1); EOSINOPHILS # (AUTO) 0.1 X10'3 (0-0.9); EOSINOPHILS % (AUTO) 1.2 % (0-6); HEMATOCRIT 27.3 % (42.0-52.0); HEMOGLOBIN 8.6 g/dl (14.0-17.9); LYMPHOCYTES # (AUTO) 0.3 X10'3 (1.1-4.8); LYMPHOCYTES % (AUTO) 5.1 % (21-51); MEAN CORPUSCULAR HEMOGLOBIN 26.9 PG (27.0-31.0); MEAN CORPUSCULAR HGB CONC 31.7 g/dL (33.0-36.5); MEAN CORPUSCULAR VOLUME 84.9 FL (78-98); MEAN PLATELET VOLUME 7.3 FL (7.4-10.4); MONOCYTES # (AUTO) 0.6 X10'3 (0-0.9); MONOCYTES % (AUTO) 10.8 % (2-12); NEUTROPHILS # (AUTO) 4.7 X10'3 (1.8-7.7); NEUTROPHILS % (AUTO) 82.6 % (42-75); PLATELET COUNT 118 X10'3 (140-440); RED BLOOD COUNT 3.22 X10'6 (4.70-6.10); WHITE BLOOD COUNT 5.7 X10'3 (4.5-11.0)
[2019-12-10 03:11] LABS: ALANINE AMINOTRANSFERASE 10 U/L (12-78); ALBUMIN 2.6 G/DL (3.4-5.0); ALKALINE PHOSPHATASE 63 IU/L (46-116); ANION GAP 12 (8-16); ASPARTATE AMINO TRANSFERASE 24 U/L (10-37); BILIRUBIN,TOTAL 0.8 MG/DL (0.1-1.0); BLOOD UREA NITROGEN 33 MG/DL (7-18); BUN/CREATININE RATIO 5.2 (5.4-32.0); CALCIUM 8.2 MG/DL (8.5-10.1); CHLORIDE 100 MMOL/L (99-107); CREATININE 6.32 MG/DL (0.60-1.10); GLUCOSE 167 MG/DL (70-104); MAGNESIUM 1.8 MG/DL (1.5-2.4); PHOSPHORUS 4.6 MG/DL (2.3-4.5); SODIUM 137 MMOL/L (135-145); TOTAL CARBON DIOXIDE 25.1 MMOL/L (24-32); TOTAL PROTEIN 5.3 G/DL (6.4-8.2); VANCOMYCIN,RANDOM 22.3 UG/ML; eGFR 9 ML/MIN
[2019-12-10 03:15] LABS: ABG BASE EXCESS -2.1 mmol/L (-2.0-3.0); ABG HCO3 21.8 mmol/L (22.0-26.0); ABG OXYGEN SATURATION 96.9 % (95-98); ABG PCO2 (T) 34.5 mmHg (35.0-45.0); ALLEN'S TEST POSITIVE; FCOHb 0.3 % (0.5-1.5); FMetHb 0.1 % (0.3-1.12); FO2Hb 96.5 % (94-100); PATIENT TEMPERATURE 37.2; PEEP 5 cm H2O; TOTAL HEMOGLOBIN 9.6 G/dl (14.0-17.9)
[2019-12-10 04:59] LABS: ANISOCYTOSIS 3+; PLATELET ESTIMATE DECREASED; POIKILOCYTOSIS 1+
[2019-12-10 05:00] LABS: HYPOCHROMASIA 1+
--- NOTE | 2019-12-10 06:24 | NUR ---
starting to wake up , but still weak , opens eyes when name called . Report to Karli KING
[2019-12-10] MEDS: tamsulosin 0.4mg capsule PO SCH (08:00)
[2019-12-10] MEDS ORDERED: normal saline 1000ml 250 ML IV PRN (08:00)
[2019-12-10] MEDS ORDERED: heparin 1,000 units/ml 10ml inj HE ONE ×2 (08:00)
[2019-12-10] MEDS: duloxetine 30mg CAPSULE.DR PO SCH (08:00)
[2019-12-10] MEDS ORDERED: epoetin 20,000 units/ml inj IV ONE (08:00)
[2019-12-10] MEDS: FLUoxetine 20mg capsule PO SCH (08:00)
[2019-12-10] MEDS: gabapentin 400mg capsule PO SCH (08:00)
[2019-12-10] MEDS ORDERED: heparin 1,000unit/ml 10ml vial 10 ML IV ONE (08:00)
[2019-12-10] MEDS: LIRAGLUTIDE 0.6 MG/0.1 ML SQ SCH (08:00)
[2019-12-10] MEDS: famotidine/PF 10 mg/ml inj IV SCH ×2 (08:32→20:06)
[2019-12-10] MEDS: lactobacillus rhamnosus 10,000 MMU CELLS/CAPSULE PO SCH ×2 (08:32→20:06)
[2019-12-10] MEDS: atorvastatin 20mg tablet PO SCH (08:32)
[2019-12-10] MEDS: aspirin 81mg tab.chew PO SCH (08:32)
[2019-12-10] MEDS: docusate sodium 100mg/10ml UD cup PO SCH ×2 (08:32→20:06)
[2019-12-10] MEDS: heparin, porcine 5000 units/ml vial SQ SCH ×2 (08:33→20:06)
[2019-12-10] MEDS: chlorthalidone 25mg tablet PO SCH (08:34)
[2019-12-10] MEDS: pioglitazone 15mg tablet PO SCH (08:42)
--- NOTE | 2019-12-10 18:30 | NUR ---
Patient in room ICU 2044. I have received report from Trina KING, and had the opportunity to ask questions and assume patient care.
[2019-12-10] MEDS: traMADol 50MG tablet PO PRN (20:07)
--- NOTE | 2019-12-10 20:15 | NUR ---
CONSTRUCTION ANALYST Asael at bedside and updated on PT condition. At beginning of shift PT HR in 130's (ST), pt went into a rapid Afib with rate reaching 150's, non sustained. Informed Asael that pt's PO Cardizem order was increased from 60 to 90mg, instructed to give PO meds and also give 5mg IVP metoprolol. PT also appeared agitated and had order for PRN Ultram which was given to see if it had any effect on PT agitation. Will continue to monitor.
[2019-12-10] MEDS ORDERED: metoprolol tartrate 1mg/ml inj IV ONE (20:25)
[2019-12-10] MEDS ORDERED: MESSAGE TO PHARMACY PO ONE (20:45)
[2019-12-10] MEDS ORDERED: dextrose ORAL solution 15 GM/59 ML bottle PO PRN ×2 (20:45)
[2019-12-10] MEDS ORDERED: glucagon, human recombinant 1mg kit SUBCUT PRN (20:45)
[2019-12-10] MEDS ORDERED: dextrose 50%-water 50ml dispensing syringe IV PRN ×2 (20:45)
[2019-12-10] MEDS ORDERED: warfarin 5mg tablet PO ONE (21:00)
[2019-12-10] MEDS: Melatonin 3mg tablet PO SCH (21:03)
[2019-12-10] MEDS: insulin glargine (Lantus) pen - multi-dose SQ SCH (21:10)
[2019-12-10] MEDS: insulin regular, human U-100 3ml vial - multi-dose SQ SCH (21:11)
--- NOTE | 2019-12-10 23:00 | NUR ---
PT is resting comfortably with no s/s of distress. PT is back in NSR with rate in 80's. Bed is locked and low Bilat soft wrist restraints in place and secure. Will continue to monitor.
[2019-12-11] VITALS (24 sets, daily range): BP systolic 160–197; BP diastolic 90–126
[2019-12-11] MEDS: insulin regular, human U-100 3ml vial - multi-dose SQ SCH ×4 (02:37→20:42)
[2019-12-11] MEDS: mineral oil/petrolatum ophthal oint EACHEYE SCH ×4 (02:38→20:38)
[2019-12-11] MEDS: diltiazem 30mg tablet PO SCH ×4 (02:38→20:34)
[2019-12-11] MEDS: ipratropium/albuterol 3ml nebule NEB SCH ×6 (03:01→23:26)
[2019-12-11 03:16] LABS: BASOPHILS % (AUTO) 0.3 % (0-1); EOSINOPHILS # (AUTO) 0.1 X10'3 (0-0.9); EOSINOPHILS % (AUTO) 1.8 % (0-6); HEMATOCRIT 26.7 % (42.0-52.0); HEMOGLOBIN 8.6 g/dl (14.0-17.9); LYMPHOCYTES # (AUTO) 0.3 X10'3 (1.1-4.8); LYMPHOCYTES % (AUTO) 6.1 % (21-51); MEAN CORPUSCULAR HEMOGLOBIN 27.2 PG (27.0-31.0); MEAN CORPUSCULAR HGB CONC 32.1 g/dL (33.0-36.5); MEAN CORPUSCULAR VOLUME 84.7 FL (78-98); MEAN PLATELET VOLUME 7.8 FL (7.4-10.4); MONOCYTES # (AUTO) 0.9 X10'3 (0-0.9); MONOCYTES % (AUTO) 16.4 % (2-12); NEUTROPHILS # (AUTO) 3.9 X10'3 (1.8-7.7); NEUTROPHILS % (AUTO) 75.4 % (42-75); PLATELET COUNT 123 X10'3 (140-440); RED BLOOD COUNT 3.16 X10'6 (4.70-6.10); RED CELL DISTRIBUTION WIDTH 23.5 % (11.5-14.5); WHITE BLOOD COUNT 5.2 X10'3 (4.5-11.0)
[2019-12-11 03:30] LABS: ALANINE AMINOTRANSFERASE 10 U/L (12-78); ALBUMIN 2.4 G/DL (3.4-5.0); ALBUMIN/GLOBULIN RATIO 0.8 (1.1-1.5); ALKALINE PHOSPHATASE 60 IU/L (46-116); ANION GAP 6 (8-16); ASPARTATE AMINO TRANSFERASE 24 U/L (10-37); BILIRUBIN,TOTAL 0.7 MG/DL (0.1-1.0); BLOOD UREA NITROGEN 26 MG/DL (7-18); BUN/CREATININE RATIO 6.1 (5.4-32.0); CALCIUM 8.2 MG/DL (8.5-10.1); CHLORIDE 103 MMOL/L (99-107); CREATININE 4.26 MG/DL (0.60-1.10); GLUCOSE 178 MG/DL (70-104); MAGNESIUM 1.8 MG/DL (1.5-2.4); POTASSIUM 3.5 MMOL/L (3.5-5.1); SODIUM 139 MMOL/L (135-145); TOTAL CARBON DIOXIDE 30.3 MMOL/L (24-32); TOTAL PROTEIN 5.4 G/DL (6.4-8.2); eGFR 14 ML/MIN
[2019-12-11 03:57] LABS: ANISOCYTOSIS 3+; PLATELET ESTIMATE DECREASED; TOTAL CELLS COUNTED 100
[2019-12-11 03:58] LABS: POIKILOCYTOSIS 1+
[2019-12-11 03:59] LABS: HYPOCHROMASIA 1+
[2019-12-11 04:00] LABS: ABG BASE EXCESS 1.3 mmol/L (-2.0-3.0); ABG HCO3 23.6 mmol/L (22.0-26.0); ABG OXYGEN SATURATION 96.2 % (95-98); ABG PCO2 (T) 29.8 mmHg (35.0-45.0); ABG PH (T) 7.518 (7.350-7.450); ABG PO2 (T) 77.5 mmHg (83-108); ALLEN'S TEST POSITIVE; FCOHb 0.3 % (0.5-1.5); FMetHb 0.1 % (0.3-1.12); FO2Hb 95.8 % (94-100); PATIENT TEMPERATURE 37.4; PEEP 5 cm H2O; TOTAL HEMOGLOBIN 9.7 G/dl (14.0-17.9)
[2019-12-11] MEDS: NORepinephrine 8mg/ 250ml NS 250 ML IV SCH ×2 (06:42→20:41)
--- NOTE | 2019-12-11 06:42 | NUR ---
Problems reprioritized. Patient report given, questions answered & plan of care reviewed with Helen KING.
[2019-12-11] MEDS: tamsulosin 0.4mg capsule PO SCH (08:00)
[2019-12-11] MEDS: LIRAGLUTIDE 0.6 MG/0.1 ML SQ SCH (08:00)
[2019-12-11] MEDS: duloxetine 30mg CAPSULE.DR PO SCH (08:00)
[2019-12-11] MEDS: docusate sodium 100mg/10ml UD cup PO SCH ×2 (08:00→20:34)
[2019-12-11] MEDS: pioglitazone 15mg tablet PO SCH (10:03)
[2019-12-11] MEDS: FLUoxetine 20mg capsule PO SCH (10:04)
[2019-12-11] MEDS: atorvastatin 20mg tablet PO SCH (10:05)
[2019-12-11] MEDS: aspirin 81mg tab.chew PO SCH (10:05)
[2019-12-11] MEDS: chlorthalidone 25mg tablet PO SCH (10:05)
[2019-12-11] MEDS: lactobacillus rhamnosus 10,000 MMU CELLS/CAPSULE PO SCH ×2 (10:05→20:38)
[2019-12-11] MEDS: famotidine/PF 10 mg/ml inj IV SCH ×2 (10:06→20:34)
[2019-12-11] MEDS: heparin, porcine 5000 units/ml vial SQ SCH ×2 (10:06→20:40)
[2019-12-11] MEDS: traMADol 50MG tablet PO PRN (20:36)
[2019-12-11] MEDS: Melatonin 3mg tablet PO SCH (20:36)
[2019-12-11] MEDS: insulin glargine (Lantus) pen - multi-dose SQ SCH (20:45)
[2019-12-11] MEDS ORDERED: warfarin 7.5mg tablet PO ONE (21:00)
[2019-12-12] VITALS (24 sets, daily range): BP systolic 129–180; BP diastolic 89–112
[2019-12-12] MEDS: diltiazem 30mg tablet PO SCH ×4 (02:52→20:15)
[2019-12-12] MEDS: mineral oil/petrolatum ophthal oint EACHEYE SCH ×4 (02:52→20:24)
[2019-12-12] MEDS: insulin regular, human U-100 3ml vial - multi-dose SQ SCH ×4 (02:56→20:21)
[2019-12-12] MEDS: ipratropium/albuterol 3ml nebule NEB SCH ×6 (03:10→23:14)
[2019-12-12 03:33] LABS: BASOPHILS % (AUTO) 0.2 % (0-1); EOSINOPHILS # (AUTO) 0.1 X10'3 (0-0.9); EOSINOPHILS % (AUTO) 1.6 % (0-6); HEMATOCRIT 25.8 % (42.0-52.0); HEMOGLOBIN 8.3 g/dl (14.0-17.9); LYMPHOCYTES # (AUTO) 0.4 X10'3 (1.1-4.8); LYMPHOCYTES % (AUTO) 5.6 % (21-51); MEAN CORPUSCULAR HGB CONC 31.9 g/dL (33.0-36.5); MEAN CORPUSCULAR VOLUME 84.4 FL (78-98); MEAN PLATELET VOLUME 7.9 FL (7.4-10.4); MONOCYTES % (AUTO) 15.4 % (2-12); NEUTROPHILS % (AUTO) 77.2 % (42-75); PLATELET COUNT 129 X10'3 (140-440); RED BLOOD COUNT 3.06 X10'6 (4.70-6.10); RED CELL DISTRIBUTION WIDTH 23.1 % (11.5-14.5); WHITE BLOOD COUNT 6.4 X10'3 (4.5-11.0)
[2019-12-12 03:54] LABS: ALANINE AMINOTRANSFERASE 9 U/L (12-78); ALBUMIN 2.5 G/DL (3.4-5.0); ALBUMIN/GLOBULIN RATIO 0.9 (1.1-1.5); ALKALINE PHOSPHATASE 53 IU/L (46-116); ANION GAP 9 (8-16); ASPARTATE AMINO TRANSFERASE 25 U/L (10-37); BILIRUBIN,TOTAL 0.7 MG/DL (0.1-1.0); BLOOD UREA NITROGEN 44 MG/DL (7-18); BUN/CREATININE RATIO 8.5 (5.4-32.0); CALCIUM 8.4 MG/DL (8.5-10.1); CHLORIDE 101 MMOL/L (99-107); GLUCOSE 176 MG/DL (70-104); MAGNESIUM 1.7 MG/DL (1.5-2.4); PHOSPHORUS 1.3 MG/DL (2.3-4.5); POTASSIUM 3.7 MMOL/L (3.5-5.1); SODIUM 137 MMOL/L (135-145); TOTAL CARBON DIOXIDE 27.4 MMOL/L (24-32); TOTAL PROTEIN 5.4 G/DL (6.4-8.2); eGFR 11 ML/MIN
[2019-12-12 04:01] LABS: ABG BASE EXCESS -0.7 mmol/L (-2.0-3.0); ABG HCO3 21.2 mmol/L (22.0-26.0); ABG OXYGEN SATURATION 92.9 % (95-98); ABG PCO2 (T) 27.1 mmHg (35.0-45.0); ABG PH (T) 7.515 (7.350-7.450); ABG PO2 (T) 64.3 mmHg (83-108); ALLEN'S TEST POSITIVE; FCOHb 0.3 % (0.5-1.5); FMetHb 0.2 % (0.3-1.12); FO2Hb 92.4 % (94-100); PEEP 5 cm H2O; TOTAL HEMOGLOBIN 9.4 G/dl (14.0-17.9)
[2019-12-12 04:29] LABS: TOTAL CELLS COUNTED 100
[2019-12-12 04:30] LABS: ANISOCYTOSIS 3+; HYPOCHROMASIA 1+; PLATELET ESTIMATE DECREASED; POIKILOCYTOSIS 1+; POLYCHROMASIA 1+
[2019-12-12 04:31] LABS: SCHISTOCYTES FEW
--- NOTE | 2019-12-12 06:30 | NUR ---
Patient in room ICU 2044. I have received report from CHRISTINE Hannah and had the opportunity to ask questions and assume patient care.
--- NOTE | 2019-12-12 06:31 | NUR ---
Problems reprioritized. Patient report given, questions answered & plan of care reviewed with Travis KING.
[2019-12-12] MEDS: docusate sodium 100mg/10ml UD cup PO SCH ×2 (07:51→20:00)
[2019-12-12] MEDS: heparin, porcine 5000 units/ml vial SQ SCH ×2 (07:52→20:17)
[2019-12-12] MEDS: atorvastatin 20mg tablet PO SCH (07:52)
[2019-12-12] MEDS: lactobacillus rhamnosus 10,000 MMU CELLS/CAPSULE PO SCH ×2 (07:52→20:16)
[2019-12-12] MEDS: pioglitazone 15mg tablet PO SCH (07:53)
[2019-12-12] MEDS: FLUoxetine 20mg capsule PO SCH (07:53)
[2019-12-12] MEDS: aspirin 81mg tab.chew PO SCH (07:53)
[2019-12-12] MEDS: chlorthalidone 25mg tablet PO SCH (07:54)
[2019-12-12] MEDS: famotidine/PF 10 mg/ml inj IV SCH ×2 (07:54→20:15)
[2019-12-12] MEDS: tamsulosin 0.4mg capsule PO SCH (08:00)
[2019-12-12] MEDS: LIRAGLUTIDE 0.6 MG/0.1 ML SQ SCH (08:00)
[2019-12-12] MEDS: duloxetine 30mg CAPSULE.DR PO SCH (08:00)
[2019-12-12] MEDS: NORepinephrine 8mg/ 250ml NS 250 ML IV SCH (10:40)
[2019-12-12] MEDS ORDERED: heparin 1,000unit/ml 10ml vial 10 ML IV ONE (10:49)
[2019-12-12] MEDS ORDERED: normal saline 1000ml 250 ML IV PRN (10:49)
[2019-12-12] MEDS ORDERED: epoetin 20,000 units/ml inj IV ONE (10:50)
[2019-12-12] MEDS ORDERED: heparin 1,000 units/ml 10ml inj HE ONE ×2 (10:55)
--- NOTE | 2019-12-12 10:57 | NUR ---
Indra consult: Indra 11; pt has R wrist skin tear noted otherwise skin intact. Pt tolerating TF at goal GRV WNL. LBM 12/10. Phos 1.3 not on phos binder. Will continue to monitor. Recommendations: 1) Continuous TF per MD using Vital High Protein with goal rate of 90 mL/hr to provide: 2160 mL total volume/day, 2160 kcal, 189 g protein, 1806 mL water 2) additional water flush per MD on dialysis 3) prealbumin q /; daily weights 4) upon extubation, Advance diet to renal/carb controlled as medically indicated 5) Routine bowel care Addendum: 12/12/19 at [address] Amended: Links added. Addendum: 12/12/19 at [address] Indra consult: Indra 11; pt has R wrist skin tear noted otherwise skin intact. Pt tolerating TF at goal GRV WNL. LBM 12/10. Phos 1.3 not on phos binder. No sepsis and lactic acidosis related to metformin resolved per MD note. Will continue to monitor.
[2019-12-12] MEDS: cloNIDine 0.1 mg tablet PO SCH ×2 (13:45→20:16)
--- NOTE | 2019-12-12 18:12 | NUR ---
Problems reprioritized. Patient report given, questions answered & plan of care reviewed with CHRISTINE Berumen.
--- NOTE | 2019-12-12 18:30 | NUR ---
Patient in room ICU 2044. I have received report from Nadeem KING and had the opportunity to ask questions and assume patient care. Addendum: 12/12/19 at 1843 by Jamaica Khan RN Amended: Links added.
[2019-12-12] MEDS: Melatonin 3mg tablet PO SCH (20:16)
[2019-12-12] MEDS: metoprolol tartrate 25mg tablet PO SCH (20:17)
[2019-12-12] MEDS: warfarin 5mg tablet PO SCH (20:19)
[2019-12-12] MEDS: insulin glargine (Lantus) pen - multi-dose SQ SCH (20:23)
[2019-12-12] MEDS ORDERED: warfarin 10mg tablet PO ONE (21:00)
--- NOTE | 2019-12-12 21:32 | NUR ---
Pt's HR converted to sinus tach from Afib w/RVR p PM med administration.. Will continue to monitor
[2019-12-13] VITALS (24 sets, daily range): BP systolic 130–165; BP diastolic 82–115
[2019-12-13] MEDS: NORepinephrine 8mg/ 250ml NS 250 ML IV SCH ×2 (00:39→14:38)
[2019-12-13] MEDS: diltiazem 30mg tablet PO SCH ×4 (02:19→20:21)
[2019-12-13] MEDS: mineral oil/petrolatum ophthal oint EACHEYE SCH ×4 (02:19→20:23)
[2019-12-13] MEDS: insulin regular, human U-100 3ml vial - multi-dose SQ SCH ×4 (02:24→20:28)
--- NOTE | 2019-12-13 02:35 | NUR ---
Patient opens eyes spontaneously, moves all extremities. Not following commands
[2019-12-13 02:47] LABS: BASOPHILS % (AUTO) 0.5 % (0-1); EOSINOPHILS # (AUTO) 0.1 X10'3 (0-0.9); EOSINOPHILS % (AUTO) 1.3 % (0-6); HEMATOCRIT 24.3 % (42.0-52.0); HEMOGLOBIN 7.8 g/dl (14.0-17.9); LYMPHOCYTES # (AUTO) 0.5 X10'3 (1.1-4.8); LYMPHOCYTES % (AUTO) 8.1 % (21-51); MEAN CORPUSCULAR HEMOGLOBIN 27.2 PG (27.0-31.0); MEAN CORPUSCULAR HGB CONC 32.2 g/dL (33.0-36.5); MEAN CORPUSCULAR VOLUME 84.5 FL (78-98); MEAN PLATELET VOLUME 8.4 FL (7.4-10.4); MONOCYTES # (AUTO) 1.4 X10'3 (0-0.9); MONOCYTES % (AUTO) 20.5 % (2-12); NEUTROPHILS # (AUTO) 4.6 X10'3 (1.8-7.7); NEUTROPHILS % (AUTO) 69.6 % (42-75); PLATELET COUNT 142 X10'3 (140-440); RED BLOOD COUNT 2.88 X10'6 (4.70-6.10); RED CELL DISTRIBUTION WIDTH 24.3 % (11.5-14.5); WHITE BLOOD COUNT 6.7 X10'3 (4.5-11.0)
[2019-12-13 03:06] LABS: ALBUMIN 2.3 G/DL (3.4-5.0); ALBUMIN/GLOBULIN RATIO 0.7 (1.1-1.5); ALKALINE PHOSPHATASE 51 IU/L (46-116); ANION GAP 4 (8-16); ASPARTATE AMINO TRANSFERASE 22 U/L (10-37); BILIRUBIN,TOTAL 0.6 MG/DL (0.1-1.0); BLOOD UREA NITROGEN 37 MG/DL (7-18); BUN/CREATININE RATIO 8.8 (5.4-32.0); CALCIUM 8.2 MG/DL (8.5-10.1); CHLORIDE 101 MMOL/L (99-107); CREATININE 4.22 MG/DL (0.60-1.10); GLUCOSE 228 MG/DL (70-104); MAGNESIUM 1.7 MG/DL (1.5-2.4); POTASSIUM 3.8 MMOL/L (3.5-5.1); SODIUM 135 MMOL/L (135-145); TOTAL CARBON DIOXIDE 29.7 MMOL/L (24-32); TOTAL PROTEIN 5.5 G/DL (6.4-8.2); eGFR 14 ML/MIN
[2019-12-13 03:07] LABS: PHOSPHORUS 1.2 MG/DL (2.3-4.5)
[2019-12-13] MEDS: ipratropium/albuterol 3ml nebule NEB SCH ×6 (03:07→23:04)
[2019-12-13 03:20] LABS: ALANINE AMINOTRANSFERASE 11 U/L (12-78)
--- NOTE | 2019-12-13 03:28 | NUR ---
Aj notified of Phos critical value of 1.2. No new orders at this time. Patient opening eyes, crosses legs, not following commands.
[2019-12-13 03:45] LABS: ANISOCYTOSIS 3+; HYPOCHROMASIA 1+; PLATELET ESTIMATE DECREASED; POIKILOCYTOSIS 1+; POLYCHROMASIA 1+; TOTAL CELLS COUNTED 100
[2019-12-13 04:16] LABS: ABG BASE EXCESS 1.7 mmol/L (-2.0-3.0); ABG HCO3 23.9 mmol/L (22.0-26.0); ABG OXYGEN SATURATION 97.2 % (95-98); ABG PCO2 (T) 28.7 mmHg (35.0-45.0); ABG PH (T) 7.539 (7.350-7.450); ABG PO2 (T) 83.7 mmHg (83-108); ALLEN'S TEST POSITIVE; FCOHb 0.3 % (0.5-1.5); FMetHb 0.1 % (0.3-1.12); FO2Hb 96.8 % (94-100); PATIENT TEMPERATURE 37.3; PEEP 5 cm H2O; TOTAL HEMOGLOBIN 8.4 G/dl (14.0-17.9)
--- NOTE | 2019-12-13 05:27 | NUR ---
0407: Patient going back and forth into afib and sinus tach. BP stable.
--- NOTE | 2019-12-13 06:09 | NUR ---
Problems reprioritized. Patient report given, questions answered & plan of care reviewed with Travis KING.
--- NOTE | 2019-12-13 06:30 | NUR ---
Patient in room ICU 2044. I have received report from CHRISTINE Berumen and had the opportunity to ask questions and assume patient care.
[2019-12-13] MEDS: docusate sodium 100mg/10ml UD cup PO SCH ×2 (07:40→20:00)
[2019-12-13] MEDS: famotidine/PF 10 mg/ml inj IV SCH ×2 (07:41→20:20)
[2019-12-13] MEDS: pioglitazone 15mg tablet PO SCH (07:41)
[2019-12-13] MEDS: cloNIDine 0.1 mg tablet PO SCH ×3 (07:41→20:21)
[2019-12-13] MEDS: FLUoxetine 20mg capsule PO SCH (07:41)
[2019-12-13] MEDS: chlorthalidone 25mg tablet PO SCH (07:42)
[2019-12-13] MEDS: aspirin 81mg tab.chew PO SCH (07:42)
[2019-12-13] MEDS: atorvastatin 20mg tablet PO SCH (07:42)
[2019-12-13] MEDS: metoprolol tartrate 25mg tablet PO SCH ×2 (07:42→20:22)
[2019-12-13] MEDS: lactobacillus rhamnosus 10,000 MMU CELLS/CAPSULE PO SCH ×2 (07:42→20:21)
[2019-12-13] MEDS: LIRAGLUTIDE 0.6 MG/0.1 ML SQ SCH (07:43)
[2019-12-13] MEDS: heparin, porcine 5000 units/ml vial SQ SCH ×2 (07:43→20:20)
[2019-12-13] MEDS: tamsulosin 0.4mg capsule PO SCH (08:00)
[2019-12-13] MEDS: duloxetine 30mg CAPSULE.DR PO SCH (08:00)
[2019-12-13 12:29] LABS: PREALBUMIN 14.7 MG/DL (19-36)
--- NOTE | 2019-12-13 15:10 | NUR ---
Pt more alert after listening to hid on telephone. Attempting to mouth words, nodding head yes/ no appropriately, and following commands.
--- NOTE | 2019-12-13 18:20 | NUR ---
Patient in room ICU 2044. I have received report from Nadeem KING and had the opportunity to ask questions and assume patient care. Addendum: 12/13/19 at 1821 by Jamaica Khan RN Amended: Links added.
[2019-12-13] MEDS: Melatonin 3mg tablet PO SCH (20:20)
[2019-12-13] MEDS: warfarin 5mg tablet PO SCH (20:22)
[2019-12-13] MEDS: insulin glargine (Lantus) pen - multi-dose SQ SCH (20:30)
--- NOTE | 2019-12-13 22:32 | NUR ---
Patient opens eyes, yawns, attempts to speak around ETT tube.
[2019-12-14] VITALS (24 sets, daily range): BP systolic 130–173; BP diastolic 66–108
--- NOTE | 2019-12-14 01:15 | NUR ---
Patient crosses and uncrosses legs. Attempts to cough out ETT tube occasionally but does not appear agitated.
[2019-12-14] MEDS: diltiazem 30mg tablet PO SCH ×4 (02:31→20:11)
[2019-12-14] MEDS: mineral oil/petrolatum ophthal oint EACHEYE SCH ×2 (02:31→08:18)
[2019-12-14] MEDS: insulin regular, human U-100 3ml vial - multi-dose SQ SCH ×2 (02:37→08:37)
[2019-12-14 02:47] LABS: BASOPHILS % (AUTO) 0.6 % (0-1); EOSINOPHILS # (AUTO) 0.3 X10'3 (0-0.9); EOSINOPHILS % (AUTO) 5.5 % (0-6); LYMPHOCYTES # (AUTO) 0.6 X10'3 (1.1-4.8); LYMPHOCYTES % (AUTO) 10.5 % (21-51); MEAN CORPUSCULAR HEMOGLOBIN 26.8 PG (27.0-31.0); MEAN CORPUSCULAR HGB CONC 31.9 g/dL (33.0-36.5); MEAN PLATELET VOLUME 8.1 FL (7.4-10.4); MONOCYTES # (AUTO) 1.4 X10'3 (0-0.9); MONOCYTES % (AUTO) 25.2 % (2-12); NEUTROPHILS # (AUTO) 3.3 X10'3 (1.8-7.7); NEUTROPHILS % (AUTO) 58.2 % (42-75); PLATELET COUNT 147 X10'3 (140-440); RED CELL DISTRIBUTION WIDTH 23.2 % (11.5-14.5); WHITE BLOOD COUNT 5.6 X10'3 (4.5-11.0)
[2019-12-14 02:56] LABS: ALANINE AMINOTRANSFERASE 8 U/L (12-78); ALBUMIN 2.1 G/DL (3.4-5.0); ALBUMIN/GLOBULIN RATIO 0.7 (1.1-1.5); ALKALINE PHOSPHATASE 42 IU/L (46-116); ANION GAP 7 (8-16); ASPARTATE AMINO TRANSFERASE 21 U/L (10-37); BILIRUBIN,TOTAL 0.5 MG/DL (0.1-1.0); BLOOD UREA NITROGEN 64 MG/DL (7-18); BUN/CREATININE RATIO 11.7 (5.4-32.0); CALCIUM 8.2 MG/DL (8.5-10.1); CHLORIDE 101 MMOL/L (99-107); CREATININE 5.45 MG/DL (0.60-1.10); GLUCOSE 141 MG/DL (70-104); MAGNESIUM 1.8 MG/DL (1.5-2.4); PHOSPHORUS 1.5 MG/DL (2.3-4.5); POTASSIUM 3.7 MMOL/L (3.5-5.1); SODIUM 137 MMOL/L (135-145); TOTAL CARBON DIOXIDE 28.7 MMOL/L (24-32); eGFR 11 ML/MIN
[2019-12-14 03:02] LABS: HEMATOCRIT 21.8 % (42.0-52.0)
[2019-12-14] MEDS: ipratropium/albuterol 3ml nebule NEB SCH ×4 (03:24→20:36)
[2019-12-14 03:40] LABS: ABG HCO3 23.9 mmol/L (22.0-26.0); ABG OXYGEN SATURATION 94.6 % (95-98); ABG PCO2 (T) 31.6 mmHg (35.0-45.0); ABG PH (T) 7.499 (7.350-7.450); ABG PO2 (T) 72.2 mmHg (83-108); ALLEN'S TEST POSITIVE; FCOHb 0.4 % (0.5-1.5); FMetHb 0.2 % (0.3-1.12); PATIENT TEMPERATURE 37.7; PEEP 5 cm H2O
[2019-12-14 03:55] LABS: TOTAL CELLS COUNTED 100
[2019-12-14 03:56] LABS: ANISOCYTOSIS 3+; PLATELET ESTIMATE NORMAL; POIKILOCYTOSIS 1+
[2019-12-14 03:57] LABS: HYPOCHROMASIA 3+
--- NOTE | 2019-12-14 05:15 | NUR ---
No acute changes. Will continue to monitor.
--- NOTE | 2019-12-14 06:17 | NUR ---
Problems reprioritized. Patient report given, questions answered & plan of care reviewed with Nadeem KING.
--- NOTE | 2019-12-14 06:30 | NUR ---
Patient in room ICU 2044. I have received report from CHRISTINE Berumen and had the opportunity to ask questions and assume patient care.
[2019-12-14] MEDS ORDERED: heparin 1,000unit/ml 10ml vial 10 ML IV ONE (08:00)
[2019-12-14] MEDS: docusate sodium 100mg/10ml UD cup PO SCH ×2 (08:00→20:00)
[2019-12-14] MEDS ORDERED: normal saline 1000ml 250 ML IV PRN (08:00)
[2019-12-14] MEDS: LIRAGLUTIDE 0.6 MG/0.1 ML SQ SCH (08:00)
[2019-12-14] MEDS ORDERED: epoetin 20,000 units/ml inj IV ONE (08:00)
[2019-12-14] MEDS: duloxetine 30mg CAPSULE.DR PO SCH (08:00)
[2019-12-14] MEDS ORDERED: heparin 1,000 units/ml 10ml inj HE ONE ×2 (08:00)
[2019-12-14] MEDS: tamsulosin 0.4mg capsule PO SCH (08:00)
[2019-12-14] MEDS: famotidine/PF 10 mg/ml inj IV SCH ×2 (08:19→20:11)
[2019-12-14] MEDS: pioglitazone 15mg tablet PO SCH (08:20)
[2019-12-14] MEDS: chlorthalidone 25mg tablet PO SCH (08:21)
[2019-12-14] MEDS: aspirin 81mg tab.chew PO SCH (08:21)
[2019-12-14] MEDS: metoprolol tartrate 25mg tablet PO SCH ×2 (08:22→20:12)
[2019-12-14] MEDS: FLUoxetine 20mg capsule PO SCH (08:22)
[2019-12-14] MEDS: atorvastatin 20mg tablet PO SCH (08:22)
[2019-12-14] MEDS: lactobacillus rhamnosus 10,000 MMU CELLS/CAPSULE PO SCH ×2 (08:23→20:00)
[2019-12-14] MEDS: cloNIDine 0.1 mg tablet PO SCH ×3 (08:44→20:25)
[2019-12-14] MEDS ORDERED: ipratropium/albuterol 3ml nebule NEB PRN (09:50)
[2019-12-14] MEDS ORDERED: racepinephrine 11.25mg/0.5ml nebule NEB PRN (09:50)
[2019-12-14 10:04] LABS: HEMATOCRIT 22.7 % (42.0-52.0); HEMOGLOBIN 7.2 g/dl (14.0-17.9); MEAN CORPUSCULAR HEMOGLOBIN 26.9 PG (27.0-31.0); MEAN CORPUSCULAR HGB CONC 31.8 g/dL (33.0-36.5); MEAN CORPUSCULAR VOLUME 84.4 FL (78-98); MEAN PLATELET VOLUME 7.9 FL (7.4-10.4); PLATELET COUNT 157 X10'3 (140-440); RED BLOOD COUNT 2.68 X10'6 (4.70-6.10); RED CELL DISTRIBUTION WIDTH 23.5 % (11.5-14.5); WHITE BLOOD COUNT 5.2 X10'3 (4.5-11.0)
[2019-12-14] MEDS: heparin, porcine 5000 units/ml vial SQ SCH ×2 (10:18→20:22)
--- NOTE | 2019-12-14 11:48 | NUR ---
Patient extubated at 1125. Tolerated well, respirations even & unlabored. Placed on 3L NC, O2 saturation 93%. Voice quality good, lung sounds clear throughout, slightly diminished on the right, unchanged from previous. Patient drowsy.
--- NOTE | 2019-12-14 12:00 | NUR ---
Rectal tube discontinued
--- NOTE | 2019-12-14 18:12 | NUR ---
Problems reprioritized. Patient report given, questions answered & plan of care reviewed with CHRISTINE Sage .
--- NOTE | 2019-12-14 19:15 | NUR ---
REPORT RECEIVED FROM CHRISTINE TATUM. PATIENT HAS VSS. HD JUST ABOUT COMPLETED, PATIENT IS AWAKE AND ALERT. PLEASANT. CONFUSED WITH LOCATION BUT KNEW DECEMBER 2019. PER PATIENT AND REPORTS, HE IS S/P CVA MANY YEARS AGO. FELISA SONG ALSO VERY EDEMATOUS. RAISED ON PILLOWS. RLE BARELY MOVES, APPEARANCE OF FOOT DROP. BOOT PLACED ON RIGHT FOOT. EYE BROWS RISE EQUALLY BUT DOES HAVE A MINIMAL RIGHT MOUTH DROOP. PATIENT SEEMS TO MILDLY SHOW SIGNS EXPRESSIVE APHASIA. NO C/O PAIN OR RESP DISTRESS. PATIENT PULLS NC OFF FREQUENTLY DROPPING SATS TO LOW TO MID 80'S. I HAVE ASKED PATIENT NOT TO PULL MORE THAN THREE TIMES AND HE STILL PULLS IT OF WHEN I LEAVE THE ROOM I CAN SEE PATIENT FROM MY CHARTING AREA. RESTRAINT TO LUE PER ORDER AND JUST ENOUGH SO TO NOT REACH UP TO NC. LARGE LOOSE BROWN STOOL INCONTINENT. FULL BED AND BATH. REPOSITIONED. RIJ QLC CDI, POS BR, FLUSHED 3 PORTS AND CLAMPED. 4TH WITH CVP. HD RN DOES LINE CARE FOR HD LINE. CDI. EXTREMELY SM AMT URINE - DARK JAN 0-10 ML/HR. PATIENT ABLE TO FOLLOW ENOUGH TO LEARNS I.S AND FLUTTER VALVE. REACHES 1000 CC ON I.S. VERY WEAK. ENCOURAGED PATIENT TO REMEMBER TO DO 10 X WHILE AWAKE. AT BEDSIDE FOR REMINDER.
[2019-12-14] MEDS: warfarin 5mg tablet PO SCH (20:12)
[2019-12-14] MEDS: Melatonin 3mg tablet PO SCH (20:13)
[2019-12-14] MEDS: insulin glargine (Lantus) pen - multi-dose SQ SCH (20:22)
[2019-12-15] VITALS (24 sets, daily range): BP systolic 145–182; BP diastolic 91–112
[2019-12-15] MEDS: diltiazem 30mg tablet PO SCH ×4 (02:09→19:34)
[2019-12-15] MEDS: ipratropium/albuterol 3ml nebule NEB SCH ×4 (03:00→19:49)
[2019-12-15 03:33] LABS: BASOPHILS % (AUTO) 0.9 % (0-1); EOSINOPHILS # (AUTO) 0.4 X10'3 (0-0.9); EOSINOPHILS % (AUTO) 7.8 % (0-6); HEMATOCRIT 26.2 % (42.0-52.0); HEMOGLOBIN 8.2 g/dl (14.0-17.9); LYMPHOCYTES # (AUTO) 0.5 X10'3 (1.1-4.8); LYMPHOCYTES % (AUTO) 10.8 % (21-51); MEAN CORPUSCULAR HEMOGLOBIN 26.6 PG (27.0-31.0); MEAN CORPUSCULAR HGB CONC 31.5 g/dL (33.0-36.5); MEAN CORPUSCULAR VOLUME 84.6 FL (78-98); MEAN PLATELET VOLUME 8.5 FL (7.4-10.4); MONOCYTES # (AUTO) 1.1 X10'3 (0-0.9); MONOCYTES % (AUTO) 23.6 % (2-12); NEUTROPHILS # (AUTO) 2.8 X10'3 (1.8-7.7); NEUTROPHILS % (AUTO) 56.9 % (42-75); PLATELET COUNT 190 X10'3 (140-440); RED BLOOD COUNT 3.09 X10'6 (4.70-6.10); RED CELL DISTRIBUTION WIDTH 23.1 % (11.5-14.5); WHITE BLOOD COUNT 4.9 X10'3 (4.5-11.0)
[2019-12-15 03:41] LABS: ALANINE AMINOTRANSFERASE 11 U/L (12-78); ALBUMIN 2.4 G/DL (3.4-5.0); ALBUMIN/GLOBULIN RATIO 0.7 (1.1-1.5); ALKALINE PHOSPHATASE 55 IU/L (46-116); ANION GAP 11 (8-16); ASPARTATE AMINO TRANSFERASE 25 U/L (10-37); BILIRUBIN,TOTAL 0.7 MG/DL (0.1-1.0); BLOOD UREA NITROGEN 37 MG/DL (7-18); BUN/CREATININE RATIO 9.6 (5.4-32.0); CALCIUM 8.7 MG/DL (8.5-10.1); CHLORIDE 100 MMOL/L (99-107); CREATININE 3.86 MG/DL (0.60-1.10); GLUCOSE 164 MG/DL (70-104); MAGNESIUM 1.8 MG/DL (1.5-2.4); PHOSPHORUS 1.8 MG/DL (2.3-4.5); POTASSIUM 4.1 MMOL/L (3.5-5.1); SODIUM 137 MMOL/L (135-145); TOTAL CARBON DIOXIDE 25.8 MMOL/L (24-32); TOTAL PROTEIN 5.8 G/DL (6.4-8.2); eGFR 16 ML/MIN
[2019-12-15 04:25] LABS: PLATELET ESTIMATE NORMAL; TOTAL CELLS COUNTED 100
[2019-12-15 04:26] LABS: ANISOCYTOSIS 3+; POLYCHROMASIA FEW
[2019-12-15] MEDS: docusate sodium 100mg/10ml UD cup PO SCH ×2 (07:51→19:34)
[2019-12-15] MEDS: famotidine/PF 10 mg/ml inj IV SCH ×2 (07:51→19:35)
[2019-12-15] MEDS: chlorthalidone 25mg tablet PO SCH (07:52)
[2019-12-15] MEDS: cloNIDine 0.1 mg tablet PO SCH ×3 (07:52→20:55)
[2019-12-15] MEDS: FLUoxetine 20mg capsule PO SCH (07:52)
[2019-12-15] MEDS: aspirin 81mg tab.chew PO SCH (07:52)
[2019-12-15] MEDS: atorvastatin 20mg tablet PO SCH (07:52)
[2019-12-15] MEDS: heparin, porcine 5000 units/ml vial SQ SCH ×2 (07:52→19:38)
[2019-12-15] MEDS: lactobacillus rhamnosus 10,000 MMU CELLS/CAPSULE PO SCH ×2 (07:52→19:34)
[2019-12-15] MEDS: duloxetine 30mg CAPSULE.DR PO SCH (07:53)
[2019-12-15] MEDS: pioglitazone 15mg tablet PO SCH (07:53)
[2019-12-15] MEDS: metoprolol tartrate 25mg tablet PO SCH ×2 (07:53→19:35)
[2019-12-15] MEDS: tamsulosin 0.4mg capsule PO SCH (08:00)
[2019-12-15] MEDS: LIRAGLUTIDE 0.6 MG/0.1 ML SQ SCH (08:00)
--- NOTE | 2019-12-15 10:44 | NUR ---
Reassessment: Pt was extubated yesterday and OG tube was removed. Pt s/p BSS this morning with ST recs pureed food with nectar thick liquids. Pending first meal since PO diet advancement. [facility] 12/13. Will continue to follow closely and monitor need for nutrition intervention. Recommendations: 1) Continue pureed food with nectar thick liquids per ST recs 2) Advance diet to renal as medically indicated with texture modification per ST recs 3) Monitor blood sugars and need for carb controlled diet 4) Monitor need for ONS/additional protein 5) Routine bowel care 6) Wt per rx Addendum: 12/15/19 at [address] Amended: Links added.
[2019-12-15] MEDS: insulin Lispro (HumaLOG) vial - multi-dose SQ SCH (17:42)
--- NOTE | 2019-12-15 18:35 | NUR ---
Patient in room ICU 2044. I have received report from Melissa, and had the opportunity to ask questions and assume patient care.
[2019-12-15] MEDS: Melatonin 3mg tablet PO SCH (20:53)
[2019-12-15] MEDS: warfarin 5mg tablet PO SCH (20:55)
[2019-12-15] MEDS: insulin glargine (Lantus) pen - multi-dose SQ SCH (21:09)
[2019-12-16] VITALS (16 sets, daily range): BP systolic 138–179; BP diastolic 72–107
[2019-12-16] MEDS: diltiazem 30mg tablet PO SCH ×2 (02:30→07:35)
[2019-12-16] MEDS: ipratropium/albuterol 3ml nebule NEB SCH ×3 (02:36→15:19)
[2019-12-16 04:03] LABS: BASOPHILS % (AUTO) 0.7 % (0-1); EOSINOPHILS # (AUTO) 0.3 X10'3 (0-0.9); EOSINOPHILS % (AUTO) 4.7 % (0-6); HEMATOCRIT 27.1 % (42.0-52.0); HEMOGLOBIN 8.7 g/dl (14.0-17.9); LYMPHOCYTES # (AUTO) 0.6 X10'3 (1.1-4.8); LYMPHOCYTES % (AUTO) 9.9 % (21-51); MEAN CORPUSCULAR HEMOGLOBIN 26.9 PG (27.0-31.0); MEAN CORPUSCULAR HGB CONC 32.1 g/dL (33.0-36.5); MEAN CORPUSCULAR VOLUME 83.9 FL (78-98); MEAN PLATELET VOLUME 8.1 FL (7.4-10.4); MONOCYTES # (AUTO) 1.1 X10'3 (0-0.9); MONOCYTES % (AUTO) 17.2 % (2-12); NEUTROPHILS # (AUTO) 4.1 X10'3 (1.8-7.7); NEUTROPHILS % (AUTO) 67.5 % (42-75); PLATELET COUNT 241 X10'3 (140-440); RED BLOOD COUNT 3.23 X10'6 (4.70-6.10); RED CELL DISTRIBUTION WIDTH 22.9 % (11.5-14.5); WHITE BLOOD COUNT 6.1 X10'3 (4.5-11.0)
[2019-12-16 04:25] LABS: ALANINE AMINOTRANSFERASE 11 U/L (12-78); ALBUMIN 2.4 G/DL (3.4-5.0); ALBUMIN/GLOBULIN RATIO 0.7 (1.1-1.5); ALKALINE PHOSPHATASE 57 IU/L (46-116); ANION GAP 9 (8-16); ASPARTATE AMINO TRANSFERASE 16 U/L (10-37); BILIRUBIN,TOTAL 0.6 MG/DL (0.1-1.0); BLOOD UREA NITROGEN 51 MG/DL (7-18); BUN/CREATININE RATIO 8.9 (5.4-32.0); CALCIUM 8.7 MG/DL (8.5-10.1); CHLORIDE 101 MMOL/L (99-107); CREATININE 5.72 MG/DL (0.60-1.10); GLUCOSE 227 MG/DL (70-104); MAGNESIUM 1.9 MG/DL (1.5-2.4); PHOSPHORUS 2.2 MG/DL (2.3-4.5); POTASSIUM 3.8 MMOL/L (3.5-5.1); SODIUM 137 MMOL/L (135-145); TOTAL CARBON DIOXIDE 27.1 MMOL/L (24-32); eGFR 10 ML/MIN
[2019-12-16 04:35] LABS: PLATELET ESTIMATE NORMAL; TOTAL CELLS COUNTED 100
[2019-12-16 04:44] LABS: ANISOCYTOSIS 2+; POIKILOCYTOSIS FEW
[2019-12-16 04:45] LABS: HYPOCHROMASIA 1+
--- NOTE | 2019-12-16 06:14 | NUR ---
Problems reprioritized. Patient report given Melissa, questions answered & plan of care reviewed with .
[2019-12-16] MEDS: atorvastatin 20mg tablet PO SCH (07:34)
[2019-12-16] MEDS: duloxetine 30mg CAPSULE.DR PO SCH (07:34)
[2019-12-16] MEDS: tamsulosin 0.4mg capsule PO SCH (07:34)
[2019-12-16] MEDS: pioglitazone 15mg tablet PO SCH (07:34)
[2019-12-16] MEDS: lactobacillus rhamnosus 10,000 MMU CELLS/CAPSULE PO SCH (07:34)
[2019-12-16] MEDS: chlorthalidone 25mg tablet PO SCH (07:35)
[2019-12-16] MEDS: metoprolol tartrate 25mg tablet PO SCH (07:36)
[2019-12-16] MEDS: aspirin 81mg tab.chew PO SCH (07:36)
[2019-12-16] MEDS: heparin, porcine 5000 units/ml vial SQ SCH (07:37)
[2019-12-16] MEDS: famotidine/PF 10 mg/ml inj IV SCH (07:37)
[2019-12-16] MEDS: cloNIDine 0.1 mg tablet PO SCH (07:42)
[2019-12-16] MEDS: FLUoxetine 20mg capsule PO SCH (07:42)
[2019-12-16] MEDS: docusate sodium 100mg/10ml UD cup PO SCH (07:51)
[2019-12-16] MEDS ORDERED: normal saline 1000ml 250 ML IV PRN (08:00)
[2019-12-16] MEDS ORDERED: heparin 1,000unit/ml 10ml vial 10 ML IV ONE (08:00)
[2019-12-16] MEDS ORDERED: heparin 1,000 units/ml 10ml inj HE ONE ×2 (08:00)
[2019-12-16] MEDS ORDERED: epoetin 20,000 units/ml inj IV ONE (08:00)
[2019-12-16] MEDS ORDERED: metoprolol tartrate 25mg tablet PO ONE (08:50)
[2019-12-16] MEDS ORDERED: lisinopril 20mg tablet PO SCH (09:22)
[2019-12-16] MEDS: insulin Lispro (HumaLOG) vial - multi-dose SQ SCH (10:41)
--- NOTE | 2019-12-16 13:40 | NUR ---
Patient in room ICU 2044. I have received report from Benny KING and had the opportunity to ask questions and assume patient care.
--- NOTE | 2019-12-16 16:11 | NUR ---
Report given to Noel Celaya. Central line was removed from R neck cath intact, no s/s of complications noted, and pt tolerated well. Rectal tube was removed from pt and he tolerated well. Duffy catheter removed from patient and pt tolerated well. Pt was taken by jes with show host or hostess transport.
[2019-12-16] MEDS ORDERED: metoprolol tartrate 50mg tablet PO SCH (20:00)
[2019-12-16] MEDS ORDERED: warfarin 7.5mg tablet PO ONE (21:00)
[2019-12-16] MEDS ORDERED: warfarin 4mg tablet PO ONE (21:00)
== END 2019-12-16 16:44 | DRG 870 ==
LOC: ER 14:11 → ED HOLD 14:58 → ICU 2S 16:14
PROVIDERS: ADMIT Internal Medicine Critical Care Medicine; ATTEND Internal Medicine Critical Care Medicine
PROC: 5A1955Z Respiratory Ventilation, Greater than 96 Consecutive Hours (ICD-10-PCS; principal; 2019-12-06)
PROC: 0BH17EZ Insertion of Endotracheal Airway into Trachea, Via Natural or Artificial Opening (ICD-10-PCS; 2019-12-06)
PROC: 05HY33Z Insertion of Infusion Device into Upper Vein, Percutaneous Approach (ICD-10-PCS; 2019-12-06)
PROC: 5A1D70Z Performance of Urinary Filtration, Intermittent, Less than 6 Hours Per Day (ICD-10-PCS; 2019-12-06)
PROC: 5A1D70Z Performance of Urinary Filtration, Intermittent, Less than 6 Hours Per Day (ICD-10-PCS; 2019-12-08)
PROC: 5A1D70Z Performance of Urinary Filtration, Intermittent, Less than 6 Hours Per Day (ICD-10-PCS; 2019-12-10)
PROC: 5A1D70Z Performance of Urinary Filtration, Intermittent, Less than 6 Hours Per Day (ICD-10-PCS; 2019-12-12)
PROC: 5A1D70Z Performance of Urinary Filtration, Intermittent, Less than 6 Hours Per Day (ICD-10-PCS; 2019-12-14)
PROC: 5A1D70Z Performance of Urinary Filtration, Intermittent, Less than 6 Hours Per Day (ICD-10-PCS; 2019-12-16)
DX: A41.9 Sepsis, unspecified organism (principal); J96.00 Acute respiratory failure, unspecified whether with hypoxia or hypercapnia; N18.6 End stage renal disease; R65.21 Severe sepsis with septic shock; G93.41 Metabolic encephalopathy; E87.2 Acidosis; J90 Pleural effusion, not elsewhere classified; N17.9 Acute kidney failure, unspecified; E11.22 Type 2 diabetes mellitus with diabetic chronic kidney disease; E11.649 Type 2 diabetes mellitus with hypoglycemia without coma; G89.29 Other chronic pain; M19.90 Unspecified osteoarthritis, unspecified site; M54.9 Dorsalgia, unspecified; I48.91 Unspecified atrial fibrillation; Z86.718 Personal history of other venous thrombosis and embolism; Z86.73 Personal history of transient ischemic attack (TIA), and cerebral infarction without residual deficits; Z99.2 Dependence on renal dialysis; Z88.8 Allergy status to other drugs, medicaments and biological substances; Z79.899 Other long term (current) drug therapy
CPT/HCPCS: 31500; 36415; 36556; 36600; 71045; 74018; 80053; 80202; 81001; 82803; 82810; 82948; 83036; 83605; 83735; 84100; 84134; 84145; 85018; 85025; 85027; 85610; 85730; 87040; 87070; 87081; 87635; 90935; 92508; 92616; 93005; 94002; 94003; 94640; 94668; 94760; 97110; 97162; 97530; 99291; G0257; G0378; J0713; J1644; J1815; J2543; J3010; J3370; J3490; J7030; Q4081

== ENCOUNTER 2019-12-27 10:02 | Outpatient (CLI) | payer BC ==
[~2019-12-27 10:02] MED LIST changes: +CHLO25TA10 PO; -EXEN10PE3 IJ; -HYDR4TAB55 PO; +LIRA0.6P SQ; -RABE20TA18 PO; +TRAM50TA2 PO; -etomidate 2mg/ml inj. ONE; -rocuronium 10mg/ml inj IV ONE
== END 2019-12-27 23:59 | disposition home or self-care (01) ==
LOC: RAD 10:02
PROVIDERS: ATTEND Internal Medicine
DX: R90.82 White matter disease, unspecified (principal); I63.9 Cerebral infarction, unspecified
CPT/HCPCS: 70551